=== PATIENT | female | born 1995 | race Caucasian/White ===

== ENCOUNTER 2016-12-27 11:15 | Inpatient (IN) | payer BC ==
[~2016-12-27] VITALS: Ht 165.1 cm; Wt 70.5 kg
[~2016-12-27 11:15] MED LIST: ACET1TAB40 PO
[2016-12-27] MEDS ORDERED: ACETAMINOPHEN 500 MG TAB PO STA (11:37)
[2016-12-27] MEDS ORDERED: ONDANSETRON 4 MG INJ IV STA (11:37)
[2016-12-27] MEDS ORDERED: SOD CHLORIDE 0.9% 1,000 ML IV STA (11:37)
[2016-12-27 12:13] LABS: ADD SCAN DIFF NO
[2016-12-27 12:17] LABS: BASOPHIL # 0.1 10^3/ul (0.0-0.1); BASOPHILS % 0.4 % (0.0-2.0); EOSINOPHILS % 0.1 % (0.0-7.0); HEMATOCRIT 44.5 % (37.0-47.0); HEMOGLOBIN 15.4 g/dl (12.0-16.0); LYMPHOCYTES # 1.9 10^3/ul (0.8-2.9); LYMPHOCYTES % 13.9 % (15.0-51.0); MEAN CORPUSCULAR HEMOGLOBIN 29.3 pg (29.0-33.0); MEAN CORPUSCULAR HGB CONC 34.6 g/dl (32.0-37.0); MEAN CORPUSCULAR VOLUME 84.8 fl (82.0-101.0); MONOCYTE # 0.8 10^3/ul (0.3-0.9); MONOCYTES % 5.8 % (0.0-11.0); NEUTROPHIL # 10.9 10^3/ul (1.6-7.5); NEUTROPHILS % 79.4 % (39.0-77.0); PLATELET COUNT 289 10^3/UL (140-415); RED BLOOD COUNT 5.25 10^6/ul (4.20-5.40); RED CELL DISTRIBUTION WIDTH 13.2 % (11.5-14.5); WHITE BLOOD COUNT 13.8 10^3/ul (4.8-10.8)
--- NOTE | 2016-12-27 12:22 | RADRPT ---
PROCEDURE: US OB. CLINICAL INDICATION: Abdominal pain. TECHNIQUE: Transabdominal and transvaginal views of the pelvis are available for review. COMPARISON: No. FINDINGS: The uterus is identified and is a gestational sac containing a single fetus. There is a circumferen tial grade 0 placenta. The mean sac diameter is 3.8 cm which calculates to 9 weeks 1 day. [place]-rump length:2.5 cm calculates to 9 weeks 1 day. heart rate:182 beats per minute. Nuchal translucency:Not evaluated. Ultrasound estimated gestational age:JOSEPHINE (AUA 07/31/2017. A yolk sac was identified. No ovarian or adnexal mass lesion is seen. There is no free fluid. IMPRESSION: 1. A single viable fetus is identified presenting mobile. AUA = 9 weeks 1 day plus or minus 0 week s 4 days. 2. JOSEPHINE (AUA): July 31, 2017. 3. No abnormal pelvic mass or free fluid is identified. RPTAT:AAJJ Physician Vandana Date Time Electronically viewed and signed by Physician Vandana on 12/27/2016 12:21 /
[2016-12-27 12:29] LABS: ALBUMIN 5.3 g/dl (3.3-4.9)
[2016-12-27 12:32] LABS: ALBUMIN/GLOBULIN RATIO 1.35; BILIRUBIN,INDIRECT 0.6 mg/dl (0-1.1); BILIRUBIN,TOTAL 0.6 mg/dl (0.2-1.3); CREATININE 0.54 mg/dl (0.44-1.00); TOTAL PROTEIN 9.2 g/dl (6.1-8.1)
[2016-12-27 12:33] LABS: CALCIUM 10.6 mg/dl (8.4-10.2)
[2016-12-27] MEDS ORDERED: POTASSIUM CHLORIDE (SR) 20 MEQ TAB PO STA (13:11)
--- NOTE | 2016-12-27 13:59 | ERA ---
ER Documentation Chief Complaint Date/Time DATE: 12/27/16 TIME: 13:58 Chief Complaint 9 weeks with ap, vomiting HPI 21-year-old woman referred here by her obstetrics clinic for intractable vomiting. She has been vomiting for about 2 weeks and clinic attempt and management as an outpatient with Zofran. She states she has been using Zofran without relief and has been losing weight and has had multiple episodes of clear emesis daily. Patient is about 9 weeks by dates and denies fevers or chills, no vaginal bleeding or pelvic cramping, no dysuria, no chest pain or shortness of breath. Patient denies diarrhea. ROS All systems reviewed and are negative except as per history of present illness. Medications Home Meds Active Scripts Acetaminophen-Codeine* (Acetaminophen-Cod #3*) 300-30 Mg Tab, 1 TAB PO Q4H Y for PAIN, #15 TAB Prov:JOSE A GOOD PA-C 10/30/15 Allergies Allergies: Coded Allergies: No Known Allergy (Unverified , 10/18/12) PMhx/Soc None Medical and Surgical Hx: pt denies Medical Hx, pt denies Surgical Hx Hx Alcohol Use: No Hx Substance Use: No Hx Tobacco Use: No Smoking Status: Never smoker FmHx Family History: No diabetes Physical Exam Vitals Vital Signs Date Time Temp Pulse Resp B/P Pulse Ox O2 Delivery O2 Flow Rate FiO2 12/27/16 11:19 98.3 113 20 137/76 99 Physical Exam GENERAL: Well-developed, well-nourished, dehydrated, nauseous, afebrile HEENT: Dry mucous membranes, pink conjunctiva, no cervical spine tenderness or step-off deformities, no goiter, no jaundice or icterus, extraocular movements intact without pain. No submandibular induration, and no pharyngeal erythema NEURO: Alert and oriented 3, cranial nerves II through XII intact bilaterally, pupils equal round reactive to light, no focal deficits or facial asymmetry, sensation intact distally Strength 5/5 in upper and lower extremities bilaterally CARDIAC: Tachycardic and regular, no murmurs rubs or gallops LUNGS: Clear bilaterally no wheezing crackles or stridor ABDOMEN: Soft nontender, no guarding, no rigidity, no rebound, no psoas sign no obturator sign. Normoactive bowel sounds SKIN: Warm and dry to touch, no abrasions, contusions, or hematomas, no lacerations, no ecchymosis, no target lesions, and without ulcers EXTREMITIES: No clubbing cyanosis or edema, calves are bilaterally symmetrical, no Homans sign, no popliteal cord sign. Distal pulses equal and bilateral PSYCH: Normal affect without agitation or irritability Result Diagram: 12/27/16 1150 12/27/16 1150 Results 24 hrs Laboratory Tests Test 12/27/16 11:50 White Blood Count 13.810^3/ul Red Blood Count 5.2510^6/ul Hemoglobin 15.4g/dl Hematocrit 44.5% Mean Corpuscular Volume 84.8fl Mean Corpuscular Hemoglobin 29.3pg Mean Corpuscular Hemoglobin Concent 34.6g/dl Red Cell Distribution Width 13.2% Platelet Count 84285^3/UL Mean Platelet Volume 10.0fl Neutrophils % 79.4% Lymphocytes % 13.9% Monocytes % 5.8% Eosinophils % 0.1% Basophils % 0.4% Nucleated Red Blood Cells % 0.0/100WBC Neutrophils # 10.910^3/ul Lymphocytes # 1.910^3/ul Monocytes # 0.810^3/ul Eosinophils # 0.010^3/ul Basophils # 0.110^3/ul Nucleated Red Blood Cells # 0.010^3/ul Sodium Level 136mmol/L Potassium Level 3.0mmol/L Chloride Level 94mmol/L Carbon Dioxide Level 26mmol/L Anion Gap 19 Blood Urea Nitrogen 6mg/dl Creatinine 0.54mg/dl Glucose Level 117mg/dl Calcium Level 10.6mg/dl Total Bilirubin 0.6mg/dl Direct Bilirubin 0.00mg/dl Indirect Bilirubin 0.6mg/dl Aspartate Amino Transf (AST/SGOT) 24IU/L Alanine Aminotransferase (ALT/SGPT) 25IU/L Alkaline Phosphatase 76IU/L Total Protein 9.2g/dl Albumin 5.3g/dl Globulin 3.90g/dl Albumin/Globulin Ratio 1.35 Lipase 38U/L Beta HCG, Quantitative 61273.0mIU/ml Current Medications Medications (Trade) Dose Ordered Sig/Roman Route PRN Reason Start Time Stop Time Status Last Admin Dose Admin Sodium Chloride (NS) 1,000 ml @ 2,000 mls/hr Q30M STAT IV 12/27/16 11:37 12/27/16 12:06 DC 12/27/16 11:55 Ondansetron HCl (Zofran Inj) 4 mg ONCE STAT IV 12/27/16 11:37 12/27/16 11:41 DC 12/27/16 11:54 Acetaminophen (Tylenol Tab) 500 mg ONCE STAT PO 12/27/16 11:37 12/27/16 11:41 DC 12/27/16 11:54 Potassium Chloride (Klor-Con 20) 60 meq ONCE STAT PO 12/27/16 13:11 12/27/16 13:17 DC 12/27/16 13:23 Procedures/MDM IV line was established patient was placed on dye penetrant testing technician rhythm strip revealed a sinus tachycardia at 110 bpm with upright P and T waves. Patient was afebrile. I administered 2 L normal saline intravenously for dehydration and Zofran 4 mg IV 2 for continued vomiting. Later for complaints of body aches I did administer morphine 2 mg IV 1. CBC revealed a reactive leukocytosis of 14, electrolytes revealed hypokalemia 3 , liver function tests were normal, urine analysis negative for infection but positive ketones, test positive. Obstetric ultrasound revealed a viable intrauterine at 9 weeks. Patient was treated here with 60 mEq of potassium supplementation. Patient has continued intractable vomiting and will be admitted to the obstetrics/gynecology department for continued medical management. Departure Diagnosis: Primary Impression: Abdominal pain Qualified Code: R10.30 - Lower abdominal pain Additional Impressions: Intractable vomiting Qualified Code: R11.2 - Intractable vomiting with nausea, unspecified vomiting type Hypokalemia First trimester Dehydration Condition: ZOE Field MD Dec 27, 2016 13:59
[2016-12-27] MEDS ORDERED: morphine 2 MG INJ IV ONE (14:00)
[2016-12-27 14:25] LABS: URINE BLOOD (Dip) POC Negative (NEGATIVE)
[2016-12-27 15:00] VITALS: TEMP 98.2
[2016-12-27 15:13] LABS: ADD UMIC YES; URINE BILIRUBIN (Dip) 1+ (NEGATIVE); URINE BLOOD (Dip) NEGATIVE (NEGATIVE); URINE COLOR YELLOW (YELLOW); URINE GLUCOSE (Dip) NEGATIVE (NEGATIVE); URINE KETONES (Dip) 3+ (NEGATIVE); URINE LEUKOCYTE ESTERASE (Dip) NEGATIVE (NEGATIVE); URINE NITRITE (Dip) NEGATIVE (NEGATIVE); URINE TOTAL PROTEIN (Dip) TRACE (NEGATIVE); URINE UROBILINOGEN (Dip) 0.2 E.U./dL (0.1-1.0)
[2016-12-27 15:34] LABS: ICTOTEST NEGATIVE (NEGATIVE)
[2016-12-27 15:36] LABS: MUCUS,URINE MODERATE; SQUAMOUS EPITHELIAL CELL,UR MANY
[2016-12-27 15:37] LABS: URINE RBCS NONE SEEN /HPF (0)
[2016-12-27 15:40] VITALS: BP 135/87; PULSE 63; RESP 18; Ht 165.1 cm; Wt 70.5 kg
--- NOTE | 2016-12-27 16:51 | HP ---
Date/Time of Note Date/Time of Note DATE: 12/27/16 TIME: 16:44 OB - History Hx of Present Free Text/Dictation 21 yo P0@9 wks GA with Intractable Nausea and Vomiting : 1 Para: 0 Care: Limited Care Obstetrical Complications: None Medical Complications: None Past Family/Social History * Past Medical, Surgical, Family and Obstetric Histories reviewed from chart. OB Admission Exam Vital Signs Vital Signs Vital Signs Date Time Temp Pulse Resp B/P Pulse Ox O2 Delivery O2 Flow Rate FiO2 12/27/16 15:40 98.0 63 18 135/87 100 Room Air Physical Exam HEENT: WNL Abdomen: WNL Extremities: Normal Reflexes: Normal Last 72 hours Lab Results CBC & BMP 12/27/16 11:50 Liver Function Test 12/27/16 11:50 Alanine Aminotransferase (ALT/SGPT) 25 Albumin 5.3 H Alkaline Phosphatase 76 Aspartate Amino Transf (AST/SGOT) 24 Direct Bilirubin 0.00 Total Protein 9.2 H OB Assessment/Plan Reason for admission: observation Plan: Expectant Management Other plan: 9+wks GA with Hyperemesis gravidarum CMP Amylase Lipase B-HCG Free T4 TSH CBC Liver,Gall bladder,Abdominal ultrasound OB ultrasound R/o Partial molar IV hydration Priscillajayce Hospitalist consult CINDI JONES M.D. Dec 27, 2016 16:51
[2016-12-27] MEDS ORDERED: HYDROmorphONE 2 MG/ML SYG IV STA (17:04)
[2016-12-27] MEDS: DEXTROSE 5%-LR 1,000 ML IV SCH (17:35)
--- NOTE | 2016-12-27 18:01 | RADRPT ---
PROCEDURE: Limited US Abdomen. CLINICAL INDICATION: Abdominal pain. TECHNIQUE: Multiple real-time images were acquired of the patient's abdomen and retroperitoneum ut ilizing a high resolution transducer. COMPARISON: None FINDINGS: The pancreas is normal. The liver is enlarged measuring 16.8 cm in length. The gallbladder wall measures 1 mm. The right kidney measures 10.6 cm in length. The left kidney and spleen are not evaluated. The abdo yobani aorta is not evaluated. IMPRESSION: 1. Normal pancreas. 2. Mild hepatomegaly. 3. No evidence of cholelithiasis or gallbladder wall thickening. Physician Vandana Date Time Electronically viewed and signed by Neno Traore Physician on 12/27/2016 18:01 LITO/
[2016-12-27 20:04] VITALS: BP 100/55; RESP 20
[2016-12-28] MEDS: DEXTROSE 5%-LR 1,000 ML IV SCH ×4 (01:12→20:56)
[2016-12-28] MEDS: ACETAMINOPHEN 325 MG TAB PO PRN (01:12)
[2016-12-28] MEDS: ACETAMINOPHEN 500 MG TAB PO PRN ×3 (02:12→19:28)
[2016-12-28 06:31] LABS: ADD SCAN DIFF NO
[2016-12-28 06:42] LABS: BASOPHIL # 0.1 10^3/ul (0.0-0.1); BASOPHILS % 0.4 % (0.0-2.0); EOSINOPHILS # 0.1 10^3/ul (0.0-0.5); EOSINOPHILS % 0.6 % (0.0-7.0); HEMATOCRIT 37.3 % (37.0-47.0); HEMOGLOBIN 12.8 g/dl (12.0-16.0); LYMPHOCYTES # 2.1 10^3/ul (0.8-2.9); LYMPHOCYTES % 18.5 % (15.0-51.0); MEAN CORPUSCULAR HEMOGLOBIN 29.4 pg (29.0-33.0); MEAN CORPUSCULAR HGB CONC 34.3 g/dl (32.0-37.0); MEAN CORPUSCULAR VOLUME 85.7 fl (82.0-101.0); MEAN PLATELET VOLUME 10.6 fl (7.4-10.4); MONOCYTE # 0.7 10^3/ul (0.3-0.9); MONOCYTES % 6.1 % (0.0-11.0); NEUTROPHIL # 8.3 10^3/ul (1.6-7.5); PLATELET COUNT 250 10^3/UL (140-415); RED BLOOD COUNT 4.35 10^6/ul (4.20-5.40); RED CELL DISTRIBUTION WIDTH 13.2 % (11.5-14.5); WHITE BLOOD COUNT 11.3 10^3/ul (4.8-10.8)
[2016-12-28 07:00] VITALS: BP 119/58; RESP 20
[2016-12-28 07:05] LABS: ALBUMIN 3.8 g/dl (3.3-4.9); CHLORIDE 101 mmol/L (97-110); SODIUM 132 mmol/L (135-144)
[2016-12-28 07:06] LABS: POTASSIUM 3.2 mmol/L (3.5-5.1)
[2016-12-28 07:08] LABS: ALANINE AMINOTRANSFERASE 24 IU/L (13-69); ALBUMIN/GLOBULIN RATIO 1.35; ALKALINE PHOSPHATASE 58 IU/L (42-121); AMYLASE 50 U/L (11-123); ANION GAP 13 (8-16); ASPARTATE AMINO TRANSFERASE 22 IU/L (15-46); BILIRUBIN,INDIRECT 0.4 mg/dl (0-1.1); BILIRUBIN,TOTAL 0.4 mg/dl (0.2-1.3); CALCIUM 9.3 mg/dl (8.4-10.2); CARBON DIOXIDE 21 mmol/L (21-31); CREATININE 0.43 mg/dl (0.44-1.00); GLUCOSE 100 mg/dl (70-220); TOTAL PROTEIN 6.6 g/dl (6.1-8.1)
[2016-12-28 07:10] LABS: BLOOD UREA NITROGEN < 2 mg/dl (7-20)
[2016-12-28 07:30] LABS: THYROID STIMULATING HORMONE 0.442 MIU/L (0.465-4.680)
[2016-12-28] MEDS: MULTIVIT/MIN/FOLATE/IRON/PREN TAB PO SCH (10:06)
[2016-12-28] MEDS: ONDANSETRON 4 MG INJ IV PRN ×3 (11:28→20:50)
--- NOTE | 2016-12-28 17:49 | PN ---
Date/Time of Note Date/Time of Note DATE: 12/28/16 TIME: 17:48 OB Subjective Subjective Subjective Patient is a 9+ weeks of gestation with hyperemesis She reports of having abdominal pain and she has received Tylenol She reports nausea and still unable to hold down solid foods OB Objective Objective Objective Vital signs stable OB Assessment/Plan Other Assessment: Hyperemesis of Other plan: We will obtain urine tox and UA Add vitamin B6 daily VICKI CENTENO Dec 28, 2016 17:49
[2016-12-28 19:01] LABS: ADD UMIC YES; URINE BILIRUBIN (Dip) NEGATIVE (NEGATIVE); URINE BLOOD (Dip) NEGATIVE (NEGATIVE); URINE COLOR LT. YELLOW (YELLOW); URINE GLUCOSE (Dip) NEGATIVE (NEGATIVE); URINE KETONES (Dip) NEGATIVE (NEGATIVE); URINE LEUKOCYTE ESTERASE (Dip) NEGATIVE (NEGATIVE); URINE NITRITE (Dip) NEGATIVE (NEGATIVE); URINE TOTAL PROTEIN (Dip) NEGATIVE (NEGATIVE); URINE UROBILINOGEN (Dip) 0.2 E.U./dL (0.1-1.0)
[2016-12-28 19:11] LABS: SQUAMOUS EPITHELIAL CELL,UR FEW; URINE RBCS NONE SEEN /HPF (0)
[2016-12-28 19:24] VITALS: BP 123/77; RESP 18
[2016-12-28 20:36] LABS: OPIATES Negative (NEGATIVE)
[2016-12-28 20:38] LABS: BARBITURATES Negative (NEGATIVE); BENZODIAZEPINES Negative (NEGATIVE); CANNABINOIDS Positive (NEGATIVE); COCAINE Negative (NEGATIVE)
[2016-12-29] MEDS: ONDANSETRON 4 MG INJ IV PRN ×2 (00:53→08:44)
[2016-12-29 08:28] VITALS: BP 120/72; RESP 16
[2016-12-29] MEDS: MULTIVIT/MIN/FOLATE/IRON/PREN TAB PO SCH (08:36)
[2016-12-29] MEDS: ACETAMINOPHEN 325 MG TAB PO PRN (08:36)
[2016-12-29] MEDS: PYRIDOXINE 50 MG TAB PO SCH (08:36)
--- NOTE | 2016-12-29 10:45 | QN ---
Documentation Comment Laborist HD#3 S: Pt c/o nausea after eating canteloupe this AM and had several episodes of vomiting overnight. Denies abdominal pain or vaginal bleeding although per nursing pt c/o severe abdominal pain earlier this AM. O: VS 98.0 04570 70 16 Gen: sleeping, arousable however minimally communicative 2/2 desire to return to sleep CV: RRR, nl s1s2 Resp: CTAB Abd: soft, NTND, NABS Ext: symmetric BLE, nontender, no edema Labs: Utox pos for MJ CBC 4 wnl CMP 4/ Na 132, K 3.2, Cr 0.43 HD#3 for 29yo G1 at 9+3 wks GA admitted for N/V c/w hyperemesis gravidarum ->Regular diet d/c'd and clear diet ordered ->PO PNV d/c'd while pt having difficulty with POs, as PNV can trigger nausea ->ATC IV Reglan ordered, to be added to current regimen of PRN Zofran and Vit B6 ->CBC and CMP ordered, will replete electrolytes prn At this time given pt reported inability to tolerate POs, pt will need ongoing inpatient management. DANNY MARTIN MD Dec 29, 2016 10:45
[2016-12-29 11:32] LABS: ADD SCAN DIFF NO
[2016-12-29 11:42] LABS: BASOPHIL # 0.1 10^3/ul (0.0-0.1); BASOPHILS % 0.4 % (0.0-2.0); EOSINOPHILS % 0.2 % (0.0-7.0); HEMATOCRIT 37.7 % (37.0-47.0); HEMOGLOBIN 13.1 g/dl (12.0-16.0); LYMPHOCYTES # 1.7 10^3/ul (0.8-2.9); LYMPHOCYTES % 14.2 % (15.0-51.0); MEAN CORPUSCULAR HEMOGLOBIN 29.2 pg (29.0-33.0); MEAN CORPUSCULAR HGB CONC 34.7 g/dl (32.0-37.0); MEAN CORPUSCULAR VOLUME 84.2 fl (82.0-101.0); MEAN PLATELET VOLUME 9.9 fl (7.4-10.4); MONOCYTE # 0.7 10^3/ul (0.3-0.9); MONOCYTES % 5.4 % (0.0-11.0); NEUTROPHIL # 9.6 10^3/ul (1.6-7.5); NEUTROPHILS % 79.3 % (39.0-77.0); PLATELET COUNT 256 10^3/UL (140-415); RED BLOOD COUNT 4.48 10^6/ul (4.20-5.40); RED CELL DISTRIBUTION WIDTH 13.1 % (11.5-14.5); WHITE BLOOD COUNT 12.1 10^3/ul (4.8-10.8)
[2016-12-29 11:52] LABS: ALBUMIN 3.7 g/dl (3.3-4.9); CHLORIDE 103 mmol/L (97-110)
[2016-12-29 11:53] LABS: POTASSIUM 3.4 mmol/L (3.5-5.1); SODIUM 132 mmol/L (135-144)
[2016-12-29 11:55] LABS: ANION GAP 10 (8-16); BILIRUBIN,INDIRECT 0.3 mg/dl (0-1.1); BILIRUBIN,TOTAL 0.3 mg/dl (0.2-1.3); CARBON DIOXIDE 22 mmol/L (21-31); CREATININE 0.44 mg/dl (0.44-1.00)
[2016-12-29 11:56] LABS: ALANINE AMINOTRANSFERASE 44 IU/L (13-69); ALBUMIN/GLOBULIN RATIO 1.32; ALKALINE PHOSPHATASE 60 IU/L (42-121); ASPARTATE AMINO TRANSFERASE 47 IU/L (15-46); CALCIUM 9.3 mg/dl (8.4-10.2); GLUCOSE 94 mg/dl (70-220); TOTAL PROTEIN 6.5 g/dl (6.1-8.1)
[2016-12-29 11:58] LABS: BLOOD UREA NITROGEN < 2 mg/dl (7-20)
[2016-12-29] MEDS: METOCLOPRAMIDE 10 MG INJ IV SCH ×2 (12:00→19:01)
[2016-12-29] MEDS: SOD CHLORIDE 0.9% 1,000 ML IV SCH ×2 (15:39→19:00)
[2016-12-29] MEDS: ACETAMINOPHEN 500 MG TAB PO PRN (19:15)
[2016-12-29 20:10] VITALS: BP 114/59; PULSE 82; RESP 17
[2016-12-30] MEDS: SOD CHLORIDE 0.9% 1,000 ML IV SCH ×2 (04:47→12:52)
[2016-12-30] MEDS: METOCLOPRAMIDE 10 MG INJ IV SCH ×3 (05:07→12:00)
[2016-12-30 08:01] VITALS: BP 118/62; RESP 18
[2016-12-30] MEDS: PYRIDOXINE 50 MG TAB PO SCH (09:04)
[2016-12-30 13:54] LABS: ADD SCAN DIFF NO
[2016-12-30 13:59] LABS: BASOPHIL # 0.1 10^3/ul (0.0-0.1); BASOPHILS % 0.4 % (0.0-2.0); EOSINOPHILS # 0.1 10^3/ul (0.0-0.5); EOSINOPHILS % 0.7 % (0.0-7.0); HEMATOCRIT 36.4 % (37.0-47.0); HEMOGLOBIN 12.7 g/dl (12.0-16.0); LYMPHOCYTES # 2.1 10^3/ul (0.8-2.9); LYMPHOCYTES % 18.1 % (15.0-51.0); MEAN CORPUSCULAR HEMOGLOBIN 30.3 pg (29.0-33.0); MEAN CORPUSCULAR HGB CONC 34.9 g/dl (32.0-37.0); MEAN CORPUSCULAR VOLUME 86.9 fl (82.0-101.0); MEAN PLATELET VOLUME 9.6 fl (7.4-10.4); MONOCYTE # 0.7 10^3/ul (0.3-0.9); MONOCYTES % 6.1 % (0.0-11.0); NEUTROPHIL # 8.6 10^3/ul (1.6-7.5); NEUTROPHILS % 74.3 % (39.0-77.0); PLATELET COUNT 244 10^3/UL (140-415); RED BLOOD COUNT 4.19 10^6/ul (4.20-5.40); RED CELL DISTRIBUTION WIDTH 13.1 % (11.5-14.5); WHITE BLOOD COUNT 11.6 10^3/ul (4.8-10.8)
[2016-12-30 14:10] LABS: ALBUMIN 3.7 g/dl (3.3-4.9)
[2016-12-30 14:12] LABS: BILIRUBIN,INDIRECT 0.3 mg/dl (0-1.1); BILIRUBIN,TOTAL 0.3 mg/dl (0.2-1.3); CREATININE 0.44 mg/dl (0.44-1.00)
[2016-12-30 14:13] LABS: ALBUMIN/GLOBULIN RATIO 1.32; CALCIUM 8.6 mg/dl (8.4-10.2); TOTAL PROTEIN 6.5 g/dl (6.1-8.1)
[2016-12-30 14:20] LABS: POTASSIUM 2.9 mmol/L (3.5-5.1)
[2016-12-30] MEDS ORDERED: POTASSIUM CHLORIDE (SR) 20 MEQ TAB PO STA (14:48)
--- NOTE | 2016-12-30 16:50 | PD.PPDC ---
APPLICATION CHEMIST Discharge Instruction Condition Patient Condition: Stable Diet Diet: Special Diet Special Diet: avoid spicey and greasy foods Activity/Restrictions Activity: Normal Activity Follow-up Follow-up with Physician: Day/Days Return to clinic for [facility] Instructions: Fever greater than 101 Excessive Vaginal Bleeding More than 2 pads per hour Unable to tolerate diet Comment: take your medications as prescribed. take your potassium tonight. eat a few bananas tonight and anay. go to your obgyn this week. return to ER with any complaints JESSE TORRES MD Dec 30, 2016 16:50
--- NOTE | 2016-12-31 06:24 | DS ---
DATE OF ADMISSION: 12/27/2016 DATE OF DISCHARGE: 12/30/2016 DISCHARGE DIAGNOSES: 1. Intrauterine at 9 weeks plus. 2. Hyperemesis gravidarum. HISTORY AND HOSPITAL COURSE: The patient is a 21-year-old who presented at 9 weeks complaining of n ausea, vomiting. On the , patient was admitted, started on IV fluids and antiemetics. On admis jules, the patient's labs were within normal limits. Potassium low at 3.0. Patient had OB ultrasoun d that was within normal limits. Obstetrical ultrasound shows intrauterine 9 weeks 1 day. Gallbladder ultrasound is all within normal limits. Patient was admitted, started on IV fluids. Through the course and now on 12/30/2016, patient is doing well, tolerating her food today. No nause a or vomiting on the . Laboratory exam today, hemoglobin is 12. Potassium was down to 2.9. How ever, the patient is tolerating p.o. well. Patient was given some potassium chloride and patient wa s able to eat and has no complaints. Patient discharged home in stable condition. The patient to follow up with [facility] within 2 to 3 day s. ER precautions were given and patient is stable upon discharge. Dictated By: JESSE TORRES MD /NTS Conf#: [id number] DID#: [id number]
[2016-12-31] MEDS ORDERED: ACET500C5 PO (23:32)
[2016-12-31] MEDS ORDERED: ONDA4TAB14 PO (23:32)
== END 2016-12-30 18:10 | disposition home or self-care (01) | DRG 781 ==
LOC: FTE 11:15 → MS1 13:52
PROVIDERS: ADMIT Obstetrics & Gynecology; ATTEND Obstetrics & Gynecology
DX: O21.0 Mild hyperemesis gravidarum (principal); Z3A.09 9 weeks gestation of pregnancy
CPT/HCPCS: 36415; 76705; 76801; 80053; 80307; 81001; 81003; 82150; 83690; 84439; 84443; 84702; 85025; 87081; 96374; 96375; J1170; J2270; J2405; J2765; J7030; J7121

== ENCOUNTER 2016-12-31 19:43 | Emergency (ER) | payer BC ==
[~2016-12-31] VITALS: Ht 162.6 cm; Wt 69.0 kg
[2016-12-31 20:14] VITALS: Ht 162.6 cm; Wt 69.0 kg
[2016-12-31] MEDS ORDERED: SOD CHLORIDE 0.9% 1,000 ML IV STA (20:53)
[2016-12-31] MEDS ORDERED: ONDANSETRON 4 MG INJ IV STA (20:53)
[2016-12-31] MEDS ORDERED: ACETAMINOPHEN 500 MG TAB PO STA (21:24)
[2016-12-31 21:27] LABS: ADD SCAN DIFF NO
[2016-12-31 21:29] LABS: BASOPHIL # 0.1 10^3/ul (0.0-0.1); BASOPHILS % 0.4 % (0.0-2.0); HEMATOCRIT 42.2 % (37.0-47.0); HEMOGLOBIN 15.2 g/dl (12.0-16.0); LYMPHOCYTES % 6.1 % (15.0-51.0); MEAN CORPUSCULAR HEMOGLOBIN 29.9 pg (29.0-33.0); MEAN CORPUSCULAR VOLUME 82.9 fl (82.0-101.0); MEAN PLATELET VOLUME 9.4 fl (7.4-10.4); MONOCYTE # 0.5 10^3/ul (0.3-0.9); MONOCYTES % 2.7 % (0.0-11.0); NEUTROPHIL # 15.3 10^3/ul (1.6-7.5); NEUTROPHILS % 90.4 % (39.0-77.0); PLATELET COUNT 289 10^3/UL (140-415); RED BLOOD COUNT 5.09 10^6/ul (4.20-5.40); RED CELL DISTRIBUTION WIDTH 12.7 % (11.5-14.5); WHITE BLOOD COUNT 16.9 10^3/ul (4.8-10.8)
[2016-12-31 21:54] LABS: ALBUMIN 4.7 g/dl (3.3-4.9)
[2016-12-31 21:57] LABS: ALBUMIN/GLOBULIN RATIO 1.38; BILIRUBIN,INDIRECT 0.3 mg/dl (0-1.1); BILIRUBIN,TOTAL 0.3 mg/dl (0.2-1.3); CREATININE 0.41 mg/dl (0.44-1.00); POTASSIUM 3.5 mmol/L (3.5-5.1); TOTAL PROTEIN 8.1 g/dl (6.1-8.1)
[2016-12-31 21:58] LABS: CALCIUM 10.2 mg/dl (8.4-10.2)
[2016-12-31 23:17] LABS: URINE BLOOD (Dip) POC Negative (NEGATIVE)
[2016-12-31] MEDS ORDERED: ONDA4TAB14 PO (23:32)
[2016-12-31] MEDS ORDERED: ACET500C5 PO (23:32)
--- NOTE | 2016-12-31 23:42 | ERD ---
ER Documentation Chief Complaint Date/Time DATE: 12/31/16 TIME: 23:36 Chief Complaint CP ON BREATHING. INTRACTABLE N/V SEEN HERE YESTERDAY HPI 21-year-old female recently discharged for intractable vomiting with hypokalemia , presents with nausea, vomiting, chest pain. Patient comes in with 2 episodes of nonbloody nonbilious emesis today, she reports generalized chest pain. She pain is noticed when she takes a deep breath in or out when she moves. She denies any fevers or chills. No leg pain or leg swelling. She denies abdominal pain. She denies vaginal bleeding or pelvic pain. ROS All systems reviewed and are negative except as per history of present illness. Medications Home Meds Active Scripts Acetaminophen* (Tylophen*) 500 Mg Capsule, 1 CAP PO Q6H Y for PAIN AND OR ELEVATED TEMP, #20 CAP Prov:LORENA BARTON PA-C 12/31/16 Ondansetron (Ondansetron Odt) 4 Mg Tab.rapdis, 4 MG PO Q6H Y for NAUSEA AND/OR VOMITING, #10 TAB Prov:LORENA BARTON PA-C 12/31/16 Discontinued Scripts Acetaminophen-Codeine* (Acetaminophen-Cod #3*) 300-30 Mg Tab, 1 TAB PO Q4H Y for PAIN, #15 TAB Prov:JOSE A GOOD PA-C 10/30/15 Allergies Allergies: Coded Allergies: No Known Allergy (Unverified , 10/18/12) PMhx/Soc History of Surgery: No Anesthesia Reaction: No Hx Neurological Disorder: No Hx Respiratory Disorders: No Hx Cardiac Disorders: No Hx Psychiatric Problems: No Hx Miscellaneous Medical Probl: No Hx Alcohol Use: No Hx Substance Use: No Hx Tobacco Use: No Smoking Status: Never smoker Physical Exam Vitals Vital Signs Date Time Temp Pulse Resp B/P Pulse Ox O2 Delivery O2 Flow Rate FiO2 12/31/16 20:14 98.3 127 20 163/80 98 Recheck vital signs were temperature 98.0, pulse was 92, blood pressure was 124/ 73 and saturation was 100% on room air Physical Exam General: Well-developed, well-nourished. The patient appears in no acute distress. HEENT: Head is normocephalic, atraumatic. No scleral icterus. Pupils are equal , round, and reactive. Oral mucous membranes are moist. No pharyngeal erythema. Neck: Supple. Nontender. Lungs: Clear to auscultation. Normal air movement. Diffuse chest wall tenderness with palpation. Heart: Regular rate and rhythm. S1 and S2 are normal. No murmurs, gallops, or rubs. Abdomen: Soft, nontender, nondistended. Bowel sounds are normoactive. Extremities: No clubbing or cyanosis. Normal pulses. Moving extremities x 4. No weakness. Neurologic: Alert and oriented 3. No focal deficits. Skin: Normal turgor. No rash or lesions. Result Diagram: 12/31/16211912/31/162119 Results 24 hrs Laboratory Tests Test 12/31/16 21:20 12/31/16 23:16 White Blood Count 16.910^3/ul Red Blood Count 5.0910^6/ul Hemoglobin 15.2g/dl Hematocrit 42.2% Mean Corpuscular Volume 82.9fl Mean Corpuscular Hemoglobin 29.9pg Mean Corpuscular Hemoglobin Concent 36.0g/dl Red Cell Distribution Width 12.7% Platelet Count 37428^3/UL Mean Platelet Volume 9.4fl Neutrophils % 90.4% Lymphocytes % 6.1% Monocytes % 2.7% Eosinophils % 0.0% Basophils % 0.4% Nucleated Red Blood Cells % 0.0/100WBC Neutrophils # 15.310^3/ul Lymphocytes # 1.010^3/ul Monocytes # 0.510^3/ul Eosinophils # 0.010^3/ul Basophils # 0.110^3/ul Nucleated Red Blood Cells # 0.010^3/ul Sodium Level 136mmol/L Potassium Level 3.5mmol/L Chloride Level 97mmol/L Carbon Dioxide Level 21mmol/L Anion Gap 22 Blood Urea Nitrogen 4mg/dl Creatinine 0.41mg/dl Glucose Level 125mg/dl Calcium Level 10.2mg/dl Total Bilirubin 0.3mg/dl Direct Bilirubin 0.00mg/dl Indirect Bilirubin 0.3mg/dl Aspartate Amino Transf (AST/SGOT) 50IU/L Alanine Aminotransferase (ALT/SGPT) 83IU/L Alkaline Phosphatase 72IU/L Total Protein 8.1g/dl Albumin 4.7g/dl Globulin 3.40g/dl Albumin/Globulin Ratio 1.38 Lipase 51U/L Bedside Urine pH (LAB) 6.0 Bedside Urine Protein (LAB) 1+ Bedside Urine Glucose (UA) Negative Bedside Urine Ketones (LAB) 4+ Bedside Urine Blood Negative Bedside Urine Nitrite (LAB) Negative Bedside Urine Leukocyte Esterase (L Negative Current Medications Medications (Trade) Dose Ordered Sig/Roman Route PRN Reason Start Time Stop Time Status Last Admin Dose Admin Sodium Chloride (NS) 1,000 ml @ 1,000 mls/hr Q1H STAT IV 12/31/16 20:53 12/31/16 21:52 DC 12/31/16 21:33 Ondansetron HCl (Zofran Inj) 4 mg ONCE STAT IV 12/31/16 20:53 12/31/16 20:55 DC 12/31/16 21:31 Acetaminophen (Tylenol Tab) 500 mg ONCE STAT PO 12/31/16 21:24 12/31/16 21:25 DC 12/31/16 21:31 Procedures/MDM ED course: Patient was given a bolus of normal saline 1 L, Zofran 4 mg IV. She was given Tylenol 1 g by mouth. When I rechecked she was actually asleep, resting comfortably. MDM: 21-year-old female presents with nausea, vomiting, chest wall pain. Differential diagnosis includes costochondritis, likely, and unlikely pulmonary embolus, pneumonia, dissection. It is reproducible with palpation, does not appear to be concerning for any acute cardiopulmonary process. Her vital signs are normalized after getting fluids and resting. Previously she was admitted due to hypokalemia, today her electrolytes are all within normal limits. No signs of an acute abdominal process, no signs of appendicitis, bowel obstruction , UTI, pyelonephritis. Her pain was controlled with Tylenol. She will be given Zofran ODT to go home with. She is to do a clear liquid diet and recheck with her OB. Patient previously had an ultrasound done, showed a single live intrauterine , no adnexal masses, no evidence of an ectopic . The case was reviewed and discussed with Dr. Lockhart who agrees with the plan of care including labs, treatment, and advanced imaging as appropriate. Departure Diagnosis: Primary Impression: Hyperemesis Condition: Good Patient Instructions: Hyperemesis Gravidarum (Severe Morning Sickness) Additional Instructions: Call your OB doctor TOMORROW for an appointment during the next 1-2 days.See the doctor sooner or return here if your condition worsens before your appointment time. LORENA BARTON PA-C Dec 31, 2016 23:42
[2017-01-01 00:12] VITALS: BP 124/73; PULSE 108; RESP 20; TEMP 98.5
== END 2017-01-01 00:27 | disposition home or self-care (01) ==
LOC: FTE 19:43
DX: O21.0 Mild hyperemesis gravidarum (principal); R07.9 Chest pain, unspecified; O99.89 Other specified diseases and conditions complicating pregnancy, childbirth and the puerperium; Z3A.09 9 weeks gestation of pregnancy
CPT/HCPCS: 36415; 80053; 83690; 85025; 93005; 96374; J2405; J7030; Z7502; Z7610; 81003

== ENCOUNTER 2017-01-03 08:14 | Emergency (ER) | payer BC ==
[~2017-01-03] VITALS: Ht 165.1 cm; Wt 60.0 kg
[~2017-01-03 08:14] MED LIST changes: -ACET1TAB40 PO; +ACET500C5 PO; +ONDA4TAB14 PO
[2017-01-03 08:25] VITALS: Ht 165.1 cm; Wt 60.0 kg
[2017-01-03] MEDS ORDERED: ACETAMINOPHEN 325 MG TAB PO STA (09:04)
[2017-01-03] MEDS ORDERED: SOD CHLORIDE 0.9% 1,000 ML IV STA (09:04)
[2017-01-03] MEDS ORDERED: ONDANSETRON 4 MG INJ IV STA (09:04)
[2017-01-03 09:35] LABS: ADD SCAN DIFF NO
[2017-01-03 09:41] LABS: BASOPHIL # 0.1 10^3/ul (0.0-0.1); BASOPHILS % 0.3 % (0.0-2.0); EOSINOPHILS % 0.2 % (0.0-7.0); HEMATOCRIT 43.5 % (37.0-47.0); HEMOGLOBIN 15.3 g/dl (12.0-16.0); LYMPHOCYTES # 1.7 10^3/ul (0.8-2.9); LYMPHOCYTES % 11.8 % (15.0-51.0); MEAN CORPUSCULAR HEMOGLOBIN 30.1 pg (29.0-33.0); MEAN CORPUSCULAR HGB CONC 35.2 g/dl (32.0-37.0); MEAN CORPUSCULAR VOLUME 85.5 fl (82.0-101.0); MEAN PLATELET VOLUME 9.5 fl (7.4-10.4); MONOCYTE # 0.9 10^3/ul (0.3-0.9); MONOCYTES % 6.3 % (0.0-11.0); NEUTROPHIL # 11.6 10^3/ul (1.6-7.5); NEUTROPHILS % 80.9 % (39.0-77.0); PLATELET COUNT 281 10^3/UL (140-415); RED BLOOD COUNT 5.09 10^6/ul (4.20-5.40); RED CELL DISTRIBUTION WIDTH 13.1 % (11.5-14.5); WHITE BLOOD COUNT 14.4 10^3/ul (4.8-10.8)
[2017-01-03 09:48] LABS: POTASSIUM 3.4 mmol/L (3.5-5.1)
[2017-01-03 09:50] LABS: ALBUMIN/GLOBULIN RATIO 1.35; BILIRUBIN,INDIRECT 0.8 mg/dl (0-1.1); BILIRUBIN,TOTAL 0.8 mg/dl (0.2-1.3); CREATININE 0.45 mg/dl (0.44-1.00); TOTAL PROTEIN 8.7 g/dl (6.1-8.1)
[2017-01-03 09:51] LABS: CALCIUM 10.2 mg/dl (8.4-10.2)
[2017-01-03 09:52] LABS: ADD UMIC YES; URINE BILIRUBIN (Dip) 1+ (NEGATIVE); URINE BLOOD (Dip) NEGATIVE (NEGATIVE); URINE COLOR YELLOW (YELLOW); URINE GLUCOSE (Dip) NEGATIVE (NEGATIVE); URINE KETONES (Dip) 3+ (NEGATIVE); URINE LEUKOCYTE ESTERASE (Dip) TRACE (NEGATIVE); URINE NITRITE (Dip) NEGATIVE (NEGATIVE); URINE TOTAL PROTEIN (Dip) TRACE (NEGATIVE); URINE UROBILINOGEN (Dip) 1.0 E.U./dL (0.1-1.0)
--- NOTE | 2017-01-03 09:59 | RADRPT ---
PROCEDURE: US OB. CLINICAL INDICATION: pain TECHNIQUE: Transabdominal views of the pelvis are available for review. COMPARISON: 12/27/16 FINDINGS: There is a single intrauterine gestation with the crown-rump length measuring 3.7 cm and gestationa l sac measuring 5.1 cm, corresponding to a gestational age of 11 weeks and 0 days. The heart rate is noted at 168 bpm. The ovaries are not seen. There is no free fluid. RPTAT: AA IMPRESSION: Single live intrauterine with an estimated gestational age of 11 weeks and 0 days, based o n ultrasound measurements. JOSEPHINE based on ultrasound measurements is 07/25/17. .Chapincito Marin MD, MD Date Time Electronically viewed and signed by .Chapincito Marin MD, on 01/03/2017 09:59 .S/
[2017-01-03 10:21] LABS: BACTERIA,URINE FEW; ICTOTEST NEGATIVE (NEGATIVE); URINE RBCS 0-2 /HPF (0)
[2017-01-03] MEDS ORDERED: POTASSIUM CHLORIDE (SR) 20 MEQ TAB PO STA (10:38)
[2017-01-03] MEDS ORDERED: BEN25 PO (10:49)
[2017-01-03] MEDS ORDERED: METO10TA92 PO (10:49)
--- NOTE | 2017-01-03 11:00 | ERD ---
ER Documentation Chief Complaint Date/Time DATE: 01/03/17 TIME: 10:51 Chief Complaint pt bib self with c/o left side abd pain since yesterday HPI This is a 21-year-old female presents to the ER with left lower quadrant abdominal pain and severe nausea and vomiting that started yesterday. Patient has over 5 visits to the ED over the last month for the same reason. Patient is currently about 10 weeks . Patient states that the left lower quadrant pain is sharp in nature it is nonradiating. She has had this pain since the started however yesterday it became worse. Patient is also complaining of chest pain however denies shortness of breath. Patient denies any vaginal bleeding or any vaginal discharge. Vomiting is nonbilious nonbloody. Patient took Zofran however did not work. A0. ROS 12 point review of systems was done, all negative except per HPI. Medications Home Meds Active Scripts Diphenhydramine Hcl* (Benadryl*) 25 Mg Cap, 25 MG PO Q6, #30 CAP Prov:DA GRADY 01/03/17 Metoclopramide* (Reglan*) 10 Mg Tablet, 10 MG PO Q6 Y for NAUSEA AND/OR VOMITING , #10 TAB Prov:DA GRADY 01/03/17 Acetaminophen* (Tylophen*) 500 Mg Capsule, 1 CAP PO Q6H Y for PAIN AND OR ELEVATED TEMP, #20 CAP Prov:LORENA BARTON PA-C 12/31/16 Ondansetron (Ondansetron Odt) 4 Mg Tab.rapdis, 4 MG PO Q6H Y for NAUSEA AND/OR VOMITING, #10 TAB Prov:LORENA BARTON PA-C 12/31/16 Discontinued Scripts Acetaminophen-Codeine* (Acetaminophen-Cod #3*) 300-30 Mg Tab, 1 TAB PO Q4H Y for PAIN, #15 TAB Prov:JOSE A GOOD PA-C 10/30/15 Allergies Allergies: Coded Allergies: No Known Allergy (Unverified , 10/18/12) PMhx/Soc History of Surgery: No Anesthesia Reaction: No Hx Neurological Disorder: No Hx Respiratory Disorders: No Hx Cardiac Disorders: No Hx Psychiatric Problems: No Hx Miscellaneous Medical Probl: No Hx Alcohol Use: No Hx Substance Use: No Hx Tobacco Use: No Physical Exam Vitals Vital Signs Date Time Temp Pulse Resp B/P Pulse Ox O2 Delivery O2 Flow Rate FiO2 01/03/17 08:25 97.3 111 20 137/68 98 Physical Exam GENERAL: The patient is well developed and appropriate for usual state of health , in no apparent distress. HEENT: Atraumatic. Oral mucosa is moist CHEST: Clear to auscultation bilaterally. There are no rales, wheezes or rhonchi. HEART: Regular rate and rhythm. No murmurs, clicks, rubs or gallops. ABDOMEN: Soft, nondistended. Good bowel sounds. No rebound or guarding. No gross peritonitis. No gross organomegaly or masses. No Chavarria sign or McBurney point tenderness. She is slightly tender in the left lower quadrant. BACK: No midline or flank tenderness. NEURO: Alert and oriented. Result Diagram: 01/03/1792401/03/17924 Results 24 hrs Laboratory Tests Test 01/03/17 09:25 White Blood Count 14.410^3/ul Red Blood Count 5.0910^6/ul Hemoglobin 15.3g/dl Hematocrit 43.5% Mean Corpuscular Volume 85.5fl Mean Corpuscular Hemoglobin 30.1pg Mean Corpuscular Hemoglobin Concent 35.2g/dl Red Cell Distribution Width 13.1% Platelet Count 59739^3/UL Mean Platelet Volume 9.5fl Neutrophils % 80.9% Lymphocytes % 11.8% Monocytes % 6.3% Eosinophils % 0.2% Basophils % 0.3% Nucleated Red Blood Cells % 0.0/100WBC Neutrophils # 11.610^3/ul Lymphocytes # 1.710^3/ul Monocytes # 0.910^3/ul Eosinophils # 0.010^3/ul Basophils # 0.110^3/ul Nucleated Red Blood Cells # 0.010^3/ul Urine Color YELLOW Urine Clarity SLIGHTLY CLOUDY Urine pH 6.5 Urine Specific [place] 1.025 Urine Ketones 3+ Urine Nitrite NEGATIVE Urine Bilirubin 1+ Urine Ictotest NEGATIVE Urine Urobilinogen 1.0 E.U./dL Urine Leukocyte Esterase TRACE Urine Microscopic RBC 0-2/HPF Urine Microscopic WBC 2-5/HPF Urine Epithelial Cells FEW Urine Bacteria FEW Urine Hemoglobin NEGATIVE Urine Glucose NEGATIVE% Urine Total Protein TRACE Sodium Level 136mmol/L Potassium Level 3.4mmol/L Chloride Level 94mmol/L Carbon Dioxide Level 25mmol/L Anion Gap 20 Blood Urea Nitrogen 5mg/dl Creatinine 0.45mg/dl Glucose Level 110mg/dl Calcium Level 10.2mg/dl Total Bilirubin 0.8mg/dl Direct Bilirubin 0.00mg/dl Indirect Bilirubin 0.8mg/dl Aspartate Amino Transf (AST/SGOT) 24IU/L Alanine Aminotransferase (ALT/SGPT) 44IU/L Alkaline Phosphatase 70IU/L Total Protein 8.7g/dl Albumin 5.0g/dl Globulin 3.70g/dl Albumin/Globulin Ratio 1.35 Beta HCG, Quantitative 18809.0mIU/ml Current Medications Medications (Trade) Dose Ordered Sig/Roman Route PRN Reason Start Time Stop Time Status Last Admin Dose Admin Sodium Chloride (NS) 1,000 ml @ 1,000 mls/hr Q1H STAT IV 01/03/17 09:04 01/03/17 10:03 DC 01/03/17 09:29 Acetaminophen (Tylenol Tab) 650 mg ONCE STAT PO 01/03/17 09:04 01/03/17 09:05 DC Ondansetron HCl (Zofran Inj) 4 mg ONCE STAT IV 01/03/17 09:04 01/03/17 09:05 DC 01/03/17 09:29 Potassium Chloride (Klor-Con 20) 40 meq ONCE STAT PO 01/03/17 10:38 01/03/17 10:40 DC 01/03/17 10:44 Procedures/MDM This is a 21-year-old female that presents to the ER with abdominal pain and vomiting. Patient has been to the ER multiple times with similar symptoms. At this time suspicion for acute abdomen is low. The right lower quadrant pain she is afebrile. Patient was given fluids and she did not have any episodes of vomiting here in the ER. Patient did have slight hypokalemia and was slightly acidotic which is likely due to her constant vomiting, she was given K-Dur here in the ER. EKG was taken there was no evidence of t wave abnormalities or ST elevations. EKG was read by Dr. Vázquez. At this time suspicion for cardiac etiology is low. I also doubt pulmonary embolism as patient does not have any shortness of breath. Suspicion for UTI or pyelonephritis is low. There is no evidence of any abnormalities with the . Patient appeared much better here in the ER after receiving fluids,and stated she would like to go home. She will be sent home with Ritesh and Gibson. She is to follow-up with her primary care doctor within 1-2 days or return to ER sooner if symptoms worsen. My medical decision making was shared with the patient she understands and agrees with plan. Departure Diagnosis: Primary Impression: Hyperemesis Condition: Stable Patient Instructions: Hyperemesis Gravidarum (Severe Morning Sickness) Additional Instructions: Call your primary care doctor TOMORROW for an appointment during the next 1-2 days.See the doctor sooner or return here if your condition worsens before your appointment time. DA GRADY Jan 03, 2017 11:00
[2017-01-03 11:02] VITALS: BP 117/66; PULSE 67; TEMP 97.9
== END 2017-01-03 11:03 | disposition home or self-care (01) ==
LOC: FTE 08:14
DX: O21.9 Vomiting of pregnancy, unspecified (principal); R10.32 Left lower quadrant pain; Z3A.11 11 weeks gestation of pregnancy
CPT/HCPCS: 36415; 76801; 80053; 81001; 81003; 84702; 85025; 86900; 86901; 93005; 96361; 96374; J2405; J7030; Z7502; Z7610

== ENCOUNTER 2017-01-04 19:51 | Emergency (ER) | payer BC ==
[~2017-01-04] VITALS: Ht 165.1 cm; Wt 68.5 kg
[~2017-01-04 19:51] MED LIST changes: +BEN25 PO; +METO10TA92 PO
[2017-01-04 20:07] VITALS: Ht 165.1 cm; Wt 68.5 kg
[2017-01-04 21:05] VITALS: TEMP 98.7
[2017-01-04] MEDS ORDERED: SOD CHLORIDE 0.9% 1,000 ML IV STA (21:24)
[2017-01-04] MEDS ORDERED: METOCLOPRAMIDE 10 MG INJ IV STA (21:24)
--- NOTE | 2017-01-04 21:29 | ERD ---
ER Documentation Chief Complaint Date/Time DATE: 01/04/17 TIME: 21:26 Chief Complaint Pt with AP and vomiting since 6 this morning.Here 3 xs for same complaint. HPI Patient is a 21-year-old female, at 10 weeks gestational age with multiple recent visits to the ER with abdominal pain and vomiting, who presents with sudden onset, severe, diffuse abdominal pain since this morning associated with multiple episodes of vomiting. She denies fever, diarrhea, dysuria, vaginal bleeding or discharge. She had a single live IUP without complication on ultrasound yesterday. She has not yet seen her TUBE BLOWER, Dr. Douglas. ROS All systems reviewed and are negative except as per history of present illness. Medications Home Meds Active Scripts Diphenhydramine Hcl* (Benadryl*) 25 Mg Cap, 25 MG PO Q6, #30 CAP Prov:DA GRADY 01/03/17 Metoclopramide* (Reglan*) 10 Mg Tablet, 10 MG PO Q6 Y for NAUSEA AND/OR VOMITING , #10 TAB Prov:DA GRADY 01/03/17 Acetaminophen* (Tylophen*) 500 Mg Capsule, 1 CAP PO Q6H Y for PAIN AND OR ELEVATED TEMP, #20 CAP Prov:LORENA BARTON PA-C 12/31/16 Ondansetron (Ondansetron Odt) 4 Mg Tab.rapdis, 4 MG PO Q6H Y for NAUSEA AND/OR VOMITING, #10 TAB Prov:LORENA BARTON PA-C 12/31/16 Discontinued Scripts Acetaminophen-Codeine* (Acetaminophen-Cod #3*) 300-30 Mg Tab, 1 TAB PO Q4H Y for PAIN, #15 TAB Prov:JOSE A GOOD PA-C 10/30/15 Allergies Allergies: Coded Allergies: No Known Allergy (Unverified , 10/18/12) PMhx/Soc Past medical history: Denies Past surgical history: Denies Social history: Denies alcohol or tobacco or illicits. States that she last smoked marijuana in October, but tox screen on December 28 was positive for cannabinoids. Medical and Surgical Hx: pt denies Medical Hx, pt denies Surgical Hx History of Surgery: No Anesthesia Reaction: No Hx Neurological Disorder: No Hx Respiratory Disorders: No Hx Cardiac Disorders: No Hx Psychiatric Problems: No Hx Miscellaneous Medical Probl: No Hx Alcohol Use: No Hx Substance Use: No Hx Tobacco Use: No Smoking Status: Never smoker FmHx Family History: No coronary disease, No diabetes Physical Exam Vitals Vital Signs Date Time Temp Pulse Resp B/P Pulse Ox O2 Delivery O2 Flow Rate FiO2 01/04/17 21:05 98.7 95 20 131/83 100 Room Air 01/04/17 20:07 98.7 130 20 113/82 95 Physical Exam Const: Crying, moaning in pain, severely distraught Head: Atraumatic Eyes: Normal Conjunctiva, no pallor or icterus ENT: Normal External Ears, Nose and Mouth. Mucous membranes moist Neck: Full range of motion. No meningismus. Resp: Clear to auscultation bilaterally Cardio: Tachycardic, regular rhythm, no murmurs Abd: Soft, diffusely tender with inconsistencies, no guarding, no rebound, non distended. Skin: No petechiae or rashes, slightly diminished turgor Back: No midline or flank tenderness Ext: No cyanosis, or edema Neur: Awake and alert, cranial nerves II through XII intact, strength and sensation intact for extremities, normal gait Psych: Severely distraught, poorly communicative Result Diagram: 01/04/17210401/04/172104 Results 24 hrs Laboratory Tests Test 01/04/17 21:05 01/04/17 21:40 White Blood Count 12.610^3/ul Red Blood Count 5.0210^6/ul Hemoglobin 14.8g/dl Hematocrit 42.7% Mean Corpuscular Volume 85.1fl Mean Corpuscular Hemoglobin 29.5pg Mean Corpuscular Hemoglobin Concent 34.7g/dl Red Cell Distribution Width 13.2% Platelet Count 85021^3/UL Mean Platelet Volume 9.6fl Neutrophils % 81.8% Lymphocytes % 8.5% Monocytes % 8.9% Eosinophils % 0.0% Basophils % 0.2% Nucleated Red Blood Cells % 0.0/100WBC Neutrophils # 10.310^3/ul Lymphocytes # 1.110^3/ul Monocytes # 1.110^3/ul Eosinophils # 0.010^3/ul Basophils # 0.010^3/ul Nucleated Red Blood Cells # 0.010^3/ul Sodium Level 135mmol/L Potassium Level 3.5mmol/L Chloride Level 97mmol/L Carbon Dioxide Level 21mmol/L Anion Gap 21 Blood Urea Nitrogen 2mg/dl Creatinine 0.43mg/dl Glucose Level 102mg/dl Calcium Level 10.1mg/dl Total Bilirubin 0.4mg/dl Direct Bilirubin 0.00mg/dl Indirect Bilirubin 0.4mg/dl Aspartate Amino Transf (AST/SGOT) 23IU/L Alanine Aminotransferase (ALT/SGPT) 36IU/L Alkaline Phosphatase 74IU/L Total Protein 8.1g/dl Albumin 4.6g/dl Globulin 3.50g/dl Albumin/Globulin Ratio 1.31 Lipase 52U/L Urine Color YELLOW Urine Clarity CLOUDY Urine pH 6.0 Urine Specific [place] >=1.030 Urine Ketones 3+ Urine Nitrite NEGATIVE Urine Bilirubin 1+ Urine Ictotest NEGATIVE Urine Urobilinogen 0.2 E.U./dL Urine Leukocyte Esterase NEGATIVE Urine Microscopic RBC NONE SEEN/HPF Urine Microscopic WBC 2-5/HPF Urine Squamous Epithelial Cells MANY Urine Bacteria MODERATE Urine Mucus MODERATE Urine Hemoglobin NEGATIVE Urine Glucose NEGATIVE% Urine Total Protein TRACE Current Medications Medications (Trade) Dose Ordered Sig/Roman Route PRN Reason Start Time Stop Time Status Last Admin Dose Admin Sodium Chloride (NS) 1,000 ml @ 1,000 mls/hr Q1H STAT IV 01/04/17 21:24 01/04/17 22:23 DC 01/04/17 21:40 Metoclopramide HCl 10 mg 10 mg ONCE STAT IV 01/04/17 21:24 01/04/17 21:27 DC 01/04/17 21:40 Acetaminophen 100 ml @ 400 mls/hr ONCE ONCE IVPB 01/04/17 21:30 01/04/17 21:44 DC 01/04/17 21:42 Sodium Chloride (NS) 1,000 ml @ 1,000 mls/hr Q1H ONCE IV 01/04/17 23:00 01/04/17 23:59 DC 01/04/17 22:48 Procedures/MDM MDM: Patient is a 21-year-old female with multiple visits to the ER for hyperemesis gravidarum and abdominal pain. She appeared very distraught on initial ER arrival, but after receiving IV Tylenol and Reglan she fell asleep for several hours. On reawakening she initially did not show any distress, but then became teary-eyed again. We had further discussion with her and she expressed that she does not want to be and has been having constant pain and does not know what to do. Repeat abdominal exam is benign. There is no evidence of an acute medical condition other than hyperemesis gravidarum for which the patient is artery been given medications. I advised that she follow- up as soon as possible with an [facility]OWER to discuss her options for controlling her symptoms and her terminating . Departure Diagnosis: Primary Impression: Hyperemesis gravidarum Condition: JUAN RAMON Song MD Jan 04, 2017 21:29
[2017-01-04] MEDS ORDERED: ACETAMINOPHEN 1000MG/100ML IV 100 ML IVPB ONE (21:30)
[2017-01-04 21:35] LABS: ADD SCAN DIFF NO
[2017-01-04 21:40] LABS: BASOPHILS % 0.2 % (0.0-2.0); HEMATOCRIT 42.7 % (37.0-47.0); HEMOGLOBIN 14.8 g/dl (12.0-16.0); LYMPHOCYTES # 1.1 10^3/ul (0.8-2.9); LYMPHOCYTES % 8.5 % (15.0-51.0); MEAN CORPUSCULAR HEMOGLOBIN 29.5 pg (29.0-33.0); MEAN CORPUSCULAR HGB CONC 34.7 g/dl (32.0-37.0); MEAN CORPUSCULAR VOLUME 85.1 fl (82.0-101.0); MEAN PLATELET VOLUME 9.6 fl (7.4-10.4); MONOCYTE # 1.1 10^3/ul (0.3-0.9); MONOCYTES % 8.9 % (0.0-11.0); NEUTROPHIL # 10.3 10^3/ul (1.6-7.5); NEUTROPHILS % 81.8 % (39.0-77.0); PLATELET COUNT 274 10^3/UL (140-415); RED BLOOD COUNT 5.02 10^6/ul (4.20-5.40); RED CELL DISTRIBUTION WIDTH 13.2 % (11.5-14.5); WHITE BLOOD COUNT 12.6 10^3/ul (4.8-10.8)
[2017-01-04 21:55] LABS: ALBUMIN 4.6 g/dl (3.3-4.9)
[2017-01-04 21:56] LABS: POTASSIUM 3.5 mmol/L (3.5-5.1)
[2017-01-04 21:58] LABS: BILIRUBIN,INDIRECT 0.4 mg/dl (0-1.1); BILIRUBIN,TOTAL 0.4 mg/dl (0.2-1.3); CREATININE 0.43 mg/dl (0.44-1.00)
[2017-01-04 21:59] LABS: ALBUMIN/GLOBULIN RATIO 1.31; CALCIUM 10.1 mg/dl (8.4-10.2); TOTAL PROTEIN 8.1 g/dl (6.1-8.1)
[2017-01-04 22:06] LABS: ADD UMIC YES; URINE BILIRUBIN (Dip) 1+ (NEGATIVE); URINE BLOOD (Dip) NEGATIVE (NEGATIVE); URINE COLOR YELLOW (YELLOW); URINE GLUCOSE (Dip) NEGATIVE (NEGATIVE); URINE KETONES (Dip) 3+ (NEGATIVE); URINE LEUKOCYTE ESTERASE (Dip) NEGATIVE (NEGATIVE); URINE NITRITE (Dip) NEGATIVE (NEGATIVE); URINE TOTAL PROTEIN (Dip) TRACE (NEGATIVE); URINE UROBILINOGEN (Dip) 0.2 E.U./dL (0.1-1.0)
[2017-01-04 22:22] LABS: ICTOTEST NEGATIVE (NEGATIVE)
[2017-01-04 22:23] LABS: BACTERIA,URINE MODERATE; MUCUS,URINE MODERATE; SQUAMOUS EPITHELIAL CELL,UR MANY; URINE RBCS NONE SEEN /HPF (0)
[2017-01-04 23:00] VITALS: RESP 17
[2017-01-04] MEDS ORDERED: SOD CHLORIDE 0.9% 1,000 ML IV ONE (23:00)
[2017-01-05 01:00] VITALS: BP 106/63; PULSE 70
== END 2017-01-05 01:29 | disposition home or self-care (01) ==
LOC: E/R 19:51
DX: O21.0 Mild hyperemesis gravidarum (principal); Z3A.10 10 weeks gestation of pregnancy
CPT/HCPCS: 80053; 81001; 81003; 83690; 85025; J0131; J2765; J7030; 36415; 96374; 96375

== ENCOUNTER 2017-01-14 20:20 | Emergency (ER) | payer SELFPAY ==
[~2017-01-14] VITALS: Ht 162.6 cm; Wt 69.5 kg
[2017-01-14 20:40] VITALS: Ht 162.6 cm; Wt 69.5 kg
== END 2017-01-15 00:15 | disposition left against medical advice (07) ==
LOC: FTE 20:20
DX: Z53.21 Procedure and treatment not carried out due to patient leaving prior to being seen by health care provider (principal)

== ENCOUNTER 2017-01-30 12:10 | Emergency (ER) | payer OTHER ==
[~2017-01-30] VITALS: Wt 69.0 kg
[2017-01-30] MEDS ORDERED: METOCLOPRAMIDE 10 MG INJ IV STA (12:42)
[2017-01-30] MEDS ORDERED: SOD CHLORIDE 0.9% 1,000 ML IV STA (12:42)
[2017-01-30] MEDS ORDERED: DIPHENHYDRAMINE 50 MG INJ IV ONE (13:00)
[2017-01-30 13:04] LABS: ADD SCAN DIFF NO
[2017-01-30 13:08] LABS: BASOPHILS % 0.3 % (0.0-2.0); HEMATOCRIT 38.4 % (37.0-47.0); HEMOGLOBIN 13.5 g/dl (12.0-16.0); LYMPHOCYTES # 0.9 10^3/ul (0.8-2.9); LYMPHOCYTES % 6.2 % (15.0-51.0); MEAN CORPUSCULAR HEMOGLOBIN 30.3 pg (29.0-33.0); MEAN CORPUSCULAR HGB CONC 35.2 g/dl (32.0-37.0); MEAN CORPUSCULAR VOLUME 86.1 fl (82.0-101.0); MEAN PLATELET VOLUME 9.6 fl (7.4-10.4); MONOCYTE # 0.2 10^3/ul (0.3-0.9); MONOCYTES % 1.3 % (0.0-11.0); NEUTROPHILS % 91.8 % (39.0-77.0); PLATELET COUNT 281 10^3/UL (140-415); RED BLOOD COUNT 4.46 10^6/ul (4.20-5.40); RED CELL DISTRIBUTION WIDTH 13.6 % (11.5-14.5); WHITE BLOOD COUNT 14.1 10^3/ul (4.8-10.8)
[2017-01-30 13:21] LABS: ALBUMIN 4.9 g/dl (3.3-4.9)
[2017-01-30 13:23] LABS: CREATININE 0.45 mg/dl (0.44-1.00)
[2017-01-30 13:24] LABS: ALBUMIN/GLOBULIN RATIO 1.32; BILIRUBIN,INDIRECT 0.4 mg/dl (0-1.1); BILIRUBIN,TOTAL 0.4 mg/dl (0.2-1.3); CALCIUM 10.2 mg/dl (8.4-10.2); TOTAL PROTEIN 8.6 g/dl (6.1-8.1)
[2017-01-30 13:35] LABS: POTASSIUM 2.9 mmol/L (3.5-5.1)
[2017-01-30] MEDS ORDERED: POTASSIUM CHLORIDE (SR) 20 MEQ TAB PO STA (13:49)
--- NOTE | 2017-01-30 14:11 | RADRPT ---
PROCEDURE: US OB. CLINICAL INDICATION: Size and dates , pelvic pain TECHNIQUE: Multiple sonographic images of the pelvis and gravid uterus were obtained. The images were reviewed on a PACS workstation. COMPARISON: No prior studies are available for comparison. FINDINGS: There is a single viable intrauterine gestation. Cardiac activity is present with 161 beats per min osage. There is a variable presentation. The placenta is anterior. There is no evidence for an abruption or placenta previa. There is a normal amount of amniotic fluid with a MVP = 5.3 cm. Measurements were made in order to determine age. The results are as follows: BPD =2.7 cm HC =10.2 cm AC =8.6 cm FL =1.6 cm Estimated gestational age of approximately 14 weeks and 6 days based on ultrasound measurements. Clinical age: 14 weeks and 6 days. The estimated date of delivery is 07/25/2017, based on ultrasound measurements. The EFW = 107 g, 34%, based on LMP age. RPTAT: AA IMPRESSION: Single viable intrauterine gestation of approximately 14 weeks and 6 days based on ultrasound measu rements. .Chapincito Marin MD, Date Time Electronically viewed and signed by .Chapincito Marin MD, on 01/30/2017 14:10 .S/
[2017-01-30 15:19] LABS: ADD UMIC YES; URINE BILIRUBIN (Dip) NEGATIVE (NEGATIVE); URINE BLOOD (Dip) NEGATIVE (NEGATIVE); URINE COLOR YELLOW (YELLOW); URINE GLUCOSE (Dip) NEGATIVE (NEGATIVE); URINE KETONES (Dip) 3+ (NEGATIVE); URINE LEUKOCYTE ESTERASE (Dip) 1+ (NEGATIVE); URINE NITRITE (Dip) NEGATIVE (NEGATIVE); URINE TOTAL PROTEIN (Dip) 2+ (NEGATIVE); URINE UROBILINOGEN (Dip) 1.0 E.U./dL (0.1-1.0)
[2017-01-30] MEDS ORDERED: DEXTROSE 5%-0.45% NACL 500 ML BAG IV ONE (15:30)
[2017-01-30 15:55] LABS: BACTERIA,URINE MODERATE; MUCUS,URINE MODERATE; SQUAMOUS EPITHELIAL CELL,UR MANY
[2017-01-30 16:06] VITALS: BP 126/63; PULSE 66; RESP 20; TEMP 98.8
[2017-01-30] MEDS ORDERED: METO10TA92 PO (16:42)
[2017-01-30] MEDS ORDERED: CEPH-443 PO (16:51)
--- NOTE | 2017-01-30 16:51 | ERD ---
ER Documentation Chief Complaint Date/Time DATE: 01/30/17 TIME: 16:43 Chief Complaint ABD PAIN, NAUSEA, VOMITING, PT 15 WKS PG, NO VB (BRENDA SALDANA PA-C) HPI Patient is a 21-year-old female, , approximately 15 weeks , who presents to the emergency department with diffuse abdominal pain and vomiting. Patient states she has had symptoms similar to her current symptoms throughout her . Patient has had numerous visits to the emergency department for similar symptoms over the last 2 months. Patient states that her abdominal pain is severe and crampy in nature. She denies any fevers or chills. Patient denies taking any medication for symptoms. Patient denies any dysuria, vaginal bleeding or vaginal discharge. Patient states she has not seen her CONSTRUCTION ENGINEER yet. She states she had a visit this morning but she was unable to make it given her vomiting. (BRENDA SADLANA PA-C) ROS All systems reviewed and are negative except as per history of present illness. (BRENDA SALDANA PA-C) Medications Home Meds Active Scripts Cephalexin* (Keflex*) 500 Mg Capsule, 500 MG PO QID for 7 Days, CAP Prov:BRENDA SALDANA PA-C 01/30/17 Metoclopramide* (Reglan*) 10 Mg Tablet, 10 MG PO Q6 Y for NAUSEA AND/OR VOMITING , #20 TAB Prov:BRENDA SALDANA PA-C 01/30/17 Diphenhydramine Hcl* (Benadryl*) 25 Mg Cap, 25 MG PO Q6, #30 CAP Prov:DA GRADY 01/03/17 Metoclopramide* (Reglan*) 10 Mg Tablet, 10 MG PO Q6 Y for NAUSEA AND/OR VOMITING , #10 TAB Prov:DA GRADY 01/03/17 Acetaminophen* (Tylophen*) 500 Mg Capsule, 1 CAP PO Q6H Y for PAIN AND OR ELEVATED TEMP, #20 CAP Prov:LORENA BARTON PA-C 12/31/16 Ondansetron (Ondansetron Odt) 4 Mg Tab.rapdis, 4 MG PO Q6H Y for NAUSEA AND/OR VOMITING, #10 TAB Prov:LORENA BARTON PA-C 12/31/16 Allergies Allergies: Coded Allergies: No Known Allergy (Unverified , 10/18/12) PMhx/Soc History of Surgery: No Anesthesia Reaction: No Hx Neurological Disorder: No Hx Respiratory Disorders: No Hx Cardiac Disorders: No Hx Psychiatric Problems: No Hx Miscellaneous Medical Probl: No Hx Alcohol Use: No Hx Substance Use: No Hx Tobacco Use: No (BRENDA SALDANA PA-C) FmHx Family History: No diabetes (BRENDA SALDANA PA-C) Physical Exam Vitals Vital Signs Date Time Temp Pulse Resp B/P Pulse Ox O2 Delivery O2 Flow Rate FiO2 01/30/17 16:06 98.8 66 20 126/63 99 Room Air 01/30/17 12:14 97.9 59 17 120/81 100 (CRISTINA BEARD PA-C) Physical Exam GENERAL: Crying secondary to pain. Appears distraught. HEAD: Normocephalic, atraumatic. EYES: Pupils are equally reactive bilaterally. EOMs grossly intact. No conjunctival erythema. ENT: Moist mucous membranes. No uvula deviation. No kissing tonsils. NECK: Supple. No meningismus. Normal range of motion of the neck. LUNG: Clear to auscultation bilaterally. No rhonchi, wheezing, rales or coarse breath sounds. HEART: Regular rate and rhythm. No murmurs, rubs or gallops. ABDOMEN: No scars or rashes noted. Soft abdomen. Tender to palpation in all quadrants with minimal palpation. Positive bowel sounds in all four quadrants. No rebound tenderness, no guarding. No CVA tenderness. BACK: No midline tenderness. EXTREMITIES: Equal pulses bilaterally. No peripheral clubbing, cyanosis or edema. No unilateral leg swelling. NEUROLOGIC: Alert and oriented. Moving all four extremities without any difficulty. Normal speech. Steady gait. SKIN: Normal color. Warm and dry. No rashes or lesions. (BRENDA SALDANA PA-C) Result Diagram: 01/30/17 1235 01/30/17 1235 Results 24 hrs Laboratory Tests Test 01/30/17 12:35 01/30/17 14:40 White Blood Count 14.110^3/ul Red Blood Count 4.4610^6/ul Hemoglobin 13.5g/dl Hematocrit 38.4% Mean Corpuscular Volume 86.1fl Mean Corpuscular Hemoglobin 30.3pg Mean Corpuscular Hemoglobin Concent 35.2g/dl Red Cell Distribution Width 13.6% Platelet Count 11388^3/UL Mean Platelet Volume 9.6fl Neutrophils % 91.8% Lymphocytes % 6.2% Monocytes % 1.3% Eosinophils % 0.0% Basophils % 0.3% Nucleated Red Blood Cells % 0.0/100WBC Neutrophils # 13.010^3/ul Lymphocytes # 0.910^3/ul Monocytes # 0.210^3/ul Eosinophils # 0.010^3/ul Basophils # 0.010^3/ul Nucleated Red Blood Cells # 0.010^3/ul Sodium Level 140mmol/L Potassium Level 2.9mmol/L Chloride Level 101mmol/L Carbon Dioxide Level 22mmol/L Anion Gap 20 Blood Urea Nitrogen 6mg/dl Creatinine 0.45mg/dl Glucose Level 164mg/dl Calcium Level 10.2mg/dl Magnesium Level 1.6mg/dl Total Bilirubin 0.4mg/dl Direct Bilirubin 0.00mg/dl Indirect Bilirubin 0.4mg/dl Aspartate Amino Transf (AST/SGOT) 18IU/L Alanine Aminotransferase (ALT/SGPT) 21IU/L Alkaline Phosphatase 71IU/L Total Protein 8.6g/dl Albumin 4.9g/dl Globulin 3.70g/dl Albumin/Globulin Ratio 1.32 Lipase 117U/L Beta HCG, Quantitative 48567.0mIU/ml Urine Color YELLOW Urine Clarity CLOUDY Urine pH 6.5 Urine Specific [place] 1.025 Urine Ketones 3+ Urine Nitrite NEGATIVE Urine Bilirubin NEGATIVE Urine Urobilinogen 1.0 E.U./dL Urine Leukocyte Esterase 1+ Urine Microscopic RBC 2-5/HPF Urine Microscopic WBC 10-25/HPF Urine Squamous Epithelial Cells MANY Urine Bacteria MODERATE Urine Mucus MODERATE Urine Yeast FEW Urine Hemoglobin NEGATIVE Urine Glucose NEGATIVE% Urine Total Protein 2+ Current Medications Medications (Trade) Dose Ordered Sig/Roman Route PRN Reason Start Time Stop Time Status Last Admin Dose Admin Sodium Chloride (NS) 1,000 ml @ 1,000 mls/hr Q1H STAT IV 01/30/17 12:42 01/30/17 13:41 DC 01/30/17 13:02 Metoclopramide HCl (Reglan) 10 mg ONCE STAT IV 01/30/17 12:42 01/30/17 12:47 DC 01/30/17 13:02 Diphenhydramine HCl (Benadryl) 25 mg ONCE ONCE IV 01/30/17 13:00 01/30/17 13:01 DC 01/30/17 13:03 Potassium Chloride (Klor-Con 20) 40 meq ONCE STAT PO 01/30/17 13:49 01/30/17 13:51 DC 01/30/17 14:29 Dextrose/Sodium Chloride (D5-1/2ns) 500 ml ONCE ONCE IV 01/30/17 15:30 01/30/17 15:31 DC 01/30/17 15:36 (CRISTINA BEARD PA-C) Procedures/MDM ED COURSE: The patient was stable throughout ED course. I kept the patient and/or family informed of laboratory and diagnostic imaging results throughout the ED course. EKG: Read by Dr. Brown, attending physician. EKG shows sinus rhythm with marked sinus arrhythmia at a rate of 66 bpm Nonspecific T-wave abnormality noted DIAGNOSTIC IMAGING: Read by radiologist. DIAGNOSTIC IMAGING REPORT Patient: ION GRISSOM : 1995 Age: 21 Sex: F MR #: [id number] DOS: 01/30/17 1242 Ordering MD: BRENDA SALDANA PA-C Location: [facility] Room/Bed: PROCEDURE: US OB. CLINICAL INDICATION: Size and dates , pelvic pain TECHNIQUE: Multiple sonographic images of the pelvis and gravid uterus were obtained. The images were reviewed on a PACS workstation. COMPARISON: No prior studies are available for comparison. FINDINGS: There is a single viable intrauterine gestation. Cardiac activity is present with 161 beats per minute. There is a variable presentation. The placenta is anterior. There is no evidence for an abruption or placenta previa. There is a normal amount of amniotic fluid with a MVP = 5.3 cm. Measurements were made in order to determine age. The results are as follows: BPD = 2.7 cm HC = 10.2 cm AC = 8.6 cm FL = 1.6 cm Estimated gestational age of approximately 14 weeks and 6 days based on ultrasound measurements. Clinical age: 14 weeks and 6 days. The estimated date of delivery is 07/25/2017, based on ultrasound measurements. The EFW = 107 g, 34%, based on LMP age. RPTAT: AA IMPRESSION: Single viable intrauterine gestation of approximately 14 weeks and 6 days based on ultrasound measurements. .Chapincito Marin MD, MD Date Time Electronically viewed and signed by .Chapincito Marin MD, MD on 01/30/2017 14: 10 .S/ CC: BRENDA SALDANA PA-C DIAGNOSTIC IMAGING REPORT Patient: ION GRISSOM : 1995 Age: 21 Sex: F MR #: [id number] DOS: 01/30/17 0000 Ordering MD: BRENDA SALDANA PA-C Location: [facility] Room/Bed: PROCEDURE: US Abdomen (right upper quadrant). CLINICAL INDICATION: Abdominal pain TECHNIQUE: Multiple real-time longitudinal and transverse images of the right upper quadrant of the abdomen were acquired utilizing a curved array transducer. Images were reviewed on a high-resolution PACS workstation. COMPARISON: Ultrasound from 12/27/2016 FINDINGS: The liver is normal in size and echogenicity without focal mass or intrahepatic biliary dilatation. The gallbladder is normal. There is no pericholecystic fluid or gallbladder wall thickening or gallstones. No intra or extrahepatic biliary dilatation is seen. The common bile duct measures 2.5 mm in maximal dimension. The visualized portions of the pancreas are unremarkable with obscuration of the tail of the pancreas. No free fluid is identified. The right kidney measures 11.9 cm in length. There is normal echogenicity within the right kidney. There is no perinephric fluid collection. No hydronephrosis, mass, or calculus is seen. IMPRESSION: Unremarkable right upper quadrant ultrasound. RPTAT: JJ .Branden Miles MD, MD Date Time Electronically viewed and signed by .Branden Miles MD, MD on 01/30/2017 17:02 .A/ CC: BRENDA SALDANA PA-C MEDICATIONS GIVEN: IV fluids, Reglan, Benadryl Patient tolerated medication well with no adverse reactions. No additional episodes of vomiting were noted throughout ED course. MEDICAL DECISION MAKING: This is a 21-year-old female who presents with diffuse abdominal pain and vomiting. Patient states she has had symptoms throughout her . Vital signs were reviewed. Patient is afebrile. CBC showed slight elevation in white count at 14.1. CMP showed potassium of 2.9. No evidence of renal or liver disease at this time. Lipase showed no evidence of acute pancreatitis. UA showed positive ketones, positive WBCs and moderate epithelial squamous cells. Sample likely a dirty catch. However we will treat patient empirically at this time. Transbdominal OB ultrasound showed Single viable intrauterine gestation of approximately 14 weeks and 6 days based on ultrasound measurements.Gallbladder US was unremarkable. I discussed the patient's repeat visits to the ED and lab findings with my supervising physician, Dr. Brown. Patient was given KCl for low potassium count. Potassium rich diet discussed with patient. On numerous reexaminations, the patient was noted to be sleeping comfortably. Patient did not appear to be in any acute distress. I explained patient's findings to her and she reported feeling better. Patient was advised that she will need to follow-up with her CONSTRUCTION ENGINEER in the next few days. At this time, patient's presentation is most consistent with hyperemesis gravidum, UTI and hypokalemia. I have a much lower clinical concern for acute coronary syndrome, AAA, mesenteric ischemia, lower lobe pneumonia, DKA, bowel perforation, cholecystitis, choledocholithiasis, ascending cholangitis, gastritis, GERD, pyelonephritis, nephrolithiasis, appendicitis, ectopic , ovarian torsion or tubo-ovarian abscess.] PRESCRIPTIONS: Reglan, Keflex DISCHARGE: At this time, patient is stable for discharge and outpatient management. I have instructed the patient to follow-up with his/her primary care physician in 1-2 days. I have instructed the patient to promptly return to the ER at any time for any new or worsening symptoms including increased pain, nausea, vomiting, diarrhea, fever, weakness or LOC. The patient and/or family expressed understanding of and agreement with this plan. All questions were answered. Home care instructions were provided. (BRENDA SALDANA PA-C) 21-year-old female presenting to the emergency department with hyperemesis gravidarum, hypokalemia that was passed down to me from SWETA Gamez to record patient's gallbladder ultrasound. Gallbladder ultrasound was done and radiologist stated: Unremarkable right upper quadrant ultrasound. Patient will be discharged per SWETA Saldana's instructions (CRISTINA BEARD PA-C) Departure Diagnosis: Primary Impression: Hyperemesis gravidarum Additional Impressions: UTI (urinary tract infection) Urinary tract infection type: site unspecified Hematuria presence: without hematuria Qualified Code: N39.0 - Urinary tract infection without hematuria, site unspecified Hypokalemia Condition: Stable Patient Instructions: Hyperemesis Gravidarum Referrals: [facility] YOU HAVE RECEIVED A MEDICAL SCREENING EXAM AND THE RESULTS INDICATE THAT YOU DO NOT HAVE A CONDITION THAT REQUIRES URGENT TREATMENT IN THE EMERGENCY DEPARTMENT. FURTHER EVALUATION AND TREATMENT OF YOUR CONDITION CAN WAIT UNTIL YOU ARE SEEN IN YOUR DOCTORS OFFICE WITHIN THE NEXT 1-2 DAYS. IT IS YOUR RESPONSIBILITY TO MAKE AN APPOINTMENT FOR FOLOW-UP CARE. IF YOU HAVE A PRIMARY DOCTOR --you should call your primary doctor and schedule an appointment IF YOU DO NOT HAVE A PRIMARY DOCTOR YOU CAN CALL OUR PHYSICIAN REFERRAL HOTLINE AT IF YOU CAN NOT AFFORD TO SEE A PHYSICIAN YOU CAN CHOSE FROM THE FOLLOWING [facility] [address] [facility]. [facility] [address] [facility] [address] [facility] [facility] [address] [facility]. [facility] [address] [facility]. [facility]. [address] [facility] YOU HAVE RECEIVED A MEDICAL SCREENING EXAM AND THE RESULTS INDICATE THAT YOU DO NOT HAVE A CONDITION THAT REQUIRES URGENT TREATMENT IN THE EMERGENCY DEPARTMENT. FURTHER EVALUATION AND TREATMENT OF YOUR CONDITION CAN WAIT UNTIL YOU ARE SEEN IN YOUR DOCTORS OFFICE WITHIN THE NEXT 1-2 DAYS. IT IS YOUR RESPONSIBILITY TO MAKE AN APPOINTMENT FOR FOLOW-UP CARE. IF YOU HAVE A PRIMARY DOCTOR --you should call your primary doctor and schedule and appointment IF YOU DO NOT HAVE A PRIMARY DOCTOR YOU CAN CALL OUR PHYSICIAN REFERRAL HOTLINE AT . IF YOU CAN NOT AFFORD TO SEE A PHYSICIAN YOU CAN CHOSE FROM THE FOLLOWING [facility] INSTITUTIONS: [facility] [address] [place] [address] [facility] [address] [place] [address] [facility] [address] [place] [address] [employer] [address] [facility] [address] [place] [address]ABUSLEME [facility] [address] [place] [address] DR[address] YEE B[place] [address] [place] [address] DR MAGANA [facility] [address] [facility], [address], [facility] [address] [address] [address] [place] [address] [facility] [address] [place] [address] [phone] [facility] [address] - [address], [facility] [address] [address] [address] [facility]. [address], [facility] [address] [address] [address] [place] [address] Additional Instructions: Call your primary care doctor TOMORROW for an appointment during the next 1-2 days.See the doctor sooner or return here if your condition worsens before your appointment time. BRENDA SALDANA PA-C January 30, 2017 16:51 CRISTINA BEARD PA-C January 30, 2017 17:14
--- NOTE | 2017-01-30 17:02 | RADRPT ---
PROCEDURE: US Abdomen (right upper quadrant). CLINICAL INDICATION: Abdominal pain TECHNIQUE: Multiple real-time longitudinal and transverse images of the right upper quadrant of th e abdomen were acquired utilizing a curved array transducer. Images were reviewed on a high-resoluti on PACS workstation. COMPARISON: Ultrasound from 12/27/2016 FINDINGS: The liver is normal in size and echogenicity without focal mass or intrahepatic biliary dilatation. The gallbladder is normal. There is no pericholecystic fluid or gallbladder wall thickening or gal lstones. No intra or extrahepatic biliary dilatation is seen. The common bile duct measures 2.5 mm in maximal dimension. The visualized portions of the pancreas are unremarkable with obscuration of the tail of the pancreas. No free fluid is identified. The right kidney measures 11.9 cm in length. There is normal echogenicity within the right kidney. There is no perinephric fluid collection. No hydronephrosis, mass, or calculus is seen. IMPRESSION: Unremarkable right upper quadrant ultrasound. RPTAT: JJ .Branden Miles MD, MD Date Time Electronically viewed and signed by .Branden Miles MD, on 01/30/2017 17:02 .A/
== END 2017-01-30 17:30 | disposition home or self-care (01) ==
LOC: FTE 12:10
DX: O21.0 Mild hyperemesis gravidarum (principal); O23.42 Unspecified infection of urinary tract in pregnancy, second trimester; E87.6 Hypokalemia; O99.282 Endocrine, nutritional and metabolic diseases complicating pregnancy, second trimester; R10.2 Pelvic and perineal pain; Z3A.14 14 weeks gestation of pregnancy
CPT/HCPCS: 76705; 76805; 80053; 81001; 83690; 83735; 84702; 85025; 93005; J1200; J2765; J7030; Z7610; 36415; 81003; 96374; 96375

== ENCOUNTER 2017-02-04 10:37 | Inpatient (IN) | payer OTHER ==
[~2017-02-04] VITALS: Ht 165.1 cm; Wt 73.4 kg
[~2017-02-04 10:37] MED LIST changes: +CEPH-443 PO
--- NOTE | 2017-02-04 11:10 | ERA ---
ER Documentation Chief Complaint Date/Time DATE: 02/04/17 TIME: 11:09 Chief Complaint Vomiting HPI The patient is a 21-year-old female, presenting to the ER because of persistent vomiting ever since he became about 16 weeks ago. She was seen in the ER 5 days ago and treated with IV fluids for dehydration and discharged on antibiotic for acute cystitis. She saw her physician today who sent her back to the ER because of persistent vomiting and losing weight. She denies fever, chills, neck pain, chest pain, dyspnea. She is unable to eat because of the vomiting, complaints of low back pain, denies dysuria, diarrhea, constipation. She does not smoke nor drink, 1 Past medical/surgical history: ROS All systems reviewed and are negative except as per history of present illness. Medications Home Meds Discontinued Scripts Cephalexin* (Keflex*) 500 Mg Capsule, 500 MG PO QID for 7 Days, CAP Prov:BRENDA THOMPSON PA-C 01/30/17 Metoclopramide* (Reglan*) 10 Mg Tablet, 10 MG PO Q6 Y for NAUSEA AND/OR VOMITING , #20 TAB Prov:BRENDA THOMPSON PA-C 01/30/17 Diphenhydramine Hcl* (Benadryl*) 25 Mg Cap, 25 MG PO Q6, #30 CAP Prov:DA GRADY 01/03/17 Metoclopramide* (Reglan*) 10 Mg Tablet, 10 MG PO Q6 Y for NAUSEA AND/OR VOMITING , #10 TAB Prov:DA GRADY 01/03/17 Acetaminophen* (Tylophen*) 500 Mg Capsule, 1 CAP PO Q6H Y for PAIN AND OR ELEVATED TEMP, #20 CAP Prov:LORENA BARTON PA-C 12/31/16 Ondansetron (Ondansetron Odt) 4 Mg Tab.rapdis, 4 MG PO Q6H Y for NAUSEA AND/OR VOMITING, #10 TAB Prov:LORENA BARTON PA-C 12/31/16 Allergies Allergies: Coded Allergies: No Known Allergy (Unverified , 10/18/12) PMhx/Soc History of Surgery: No Anesthesia Reaction: No Hx Neurological Disorder: No Hx Respiratory Disorders: No Hx Cardiac Disorders: No Hx Psychiatric Problems: No Hx Miscellaneous Medical Probl: No Hx Alcohol Use: No Hx Substance Use: No Hx Tobacco Use: No Physical Exam Vitals Vital Signs Date Time Temp Pulse Resp B/P Pulse Ox O2 Delivery O2 Flow Rate FiO2 02/04/17 10:40 98.5 129 20 129/85 97 Physical Exam Const: No acute distress. Head: Atraumatic. Eyes: Normal Conjunctiva. ENT: Normal External Ears, Nose and Mouth. Neck: Full range of motion. No meningismus. Resp: Clear to auscultation bilaterally. Cardio: Regular, tachycardic Abd: Soft, non distended, normal bowel sounds, non tender. Gravid Skin: No petechiae or rashes. Back: No midline or flank tenderness. Ext: No cyanosis, or edema. Neur: Awake and alert. No focal deficit Psych: Normal Mood and Affect. Result Diagram: 02/04/17 1115 02/04/17 1115 Results 24 hrs Laboratory Tests Test 02/04/17 11:15 White Blood Count 17.110^3/ul Red Blood Count 5.0210^6/ul Hemoglobin 15.2g/dl Hematocrit 41.7% Mean Corpuscular Volume 83.1fl Mean Corpuscular Hemoglobin 30.3pg Mean Corpuscular Hemoglobin Concent 36.5g/dl Red Cell Distribution Width 13.4% Platelet Count 88275^3/UL Mean Platelet Volume 9.9fl Neutrophils % 81.9% Lymphocytes % 11.9% Monocytes % 5.0% Eosinophils % 0.2% Basophils % 0.4% Nucleated Red Blood Cells % 0.0/100WBC Neutrophils # 14.010^3/ul Lymphocytes # 2.010^3/ul Monocytes # 0.910^3/ul Eosinophils # 0.010^3/ul Basophils # 0.110^3/ul Nucleated Red Blood Cells # 0.010^3/ul Sodium Level 133mmol/L Potassium Level 2.7mmol/L Chloride Level 90mmol/L Carbon Dioxide Level 27mmol/L Anion Gap 19 Blood Urea Nitrogen 8mg/dl Creatinine 0.47mg/dl Glucose Level 111mg/dl Calcium Level 10.5mg/dl Total Bilirubin 0.7mg/dl Direct Bilirubin 0.00mg/dl Indirect Bilirubin 0.7mg/dl Aspartate Amino Transf (AST/SGOT) 26IU/L Alanine Aminotransferase (ALT/SGPT) 33IU/L Alkaline Phosphatase 85IU/L Total Protein 8.9g/dl Albumin 4.8g/dl Globulin 4.10g/dl Albumin/Globulin Ratio 1.17 Lipase 31U/L Current Medications Medications (Trade) Dose Ordered Sig/Roman Route PRN Reason Start Time Stop Time Status Last Admin Dose Admin Morphine Sulfate (morphine) 2 mg ONCE STAT IV 02/04/17 11:15 02/04/17 11:16 DC 02/04/17 11:33 Ondansetron HCl 4 mg 4 mg ONCE STAT IV 02/04/17 11:15 02/04/17 11:16 DC 02/04/17 11:32 Sodium Chloride 2,080 ml @ 2,080 mls/hr BOLUS X1 ONCE IV 02/04/17 11:30 02/04/17 12:29 DC 02/04/17 11:31 Potassium Chloride (KCl 40 MEQ/250 ML NS) 250 ml @ 62.5 mls/hr ONCE ONCE IVPB 02/04/17 14:00 02/04/17 17:59 Potassium Chloride (Klor-Con 20) 40 meq ONCE STAT PO 02/04/17 12:39 02/04/17 12:40 DC Procedures/MDM MEDICAL MAKING DECISION: The patient is a 31-year-old female, presenting to the ER because of acute hyperemesis gravidarum, acute hypokalemia. She was treated with 3 L normal saline for acute dehydration, potassium chloride 40 mEq IV and 40 mEq p.o. for acute severe hypokalemia. Magnesium, urinalysis are pending The differential diagnoses considered include but are not limited to cholelithiasis, cholecystitis, cystitis, pancreatitis, hepatitis, gastritis, peptic ulcer disease, gastric ulcer, appendicitis, diverticulitis, cholangitis, choledocholithiasis, partial small bowel obstruction. Departure Diagnosis: Primary Impression: Hyperemesis gravidarum Additional Impression: Hypokalemia Condition: Stable Comments I discussed the findings with the patient. I discussed the patient with the on- call nutrition partner Dr Fowler was made aware of the lab, the treatment, the patient condition. The patient is admitted to [facility] at 12:35 pm The patient's blood pressure was elevated (>120/80) but appears stable without evidence of hypertension emergency or urgency. The patient was counseled about the risks of hypertension and urged to pursue outpatient monitoring and therapy within a week with their primary care physician. ROSA M GÓMEZ MD February 04, 2017 11:10
[2017-02-04] MEDS ORDERED: morphine 2 MG INJ IV STA (11:15)
[2017-02-04] MEDS ORDERED: ONDANSETRON 4 MG INJ IV STA ×2 (11:15→13:51)
[2017-02-04] MEDS ORDERED: SOD CHLORIDE 0.9% IV ONE (11:30)
[2017-02-04 11:33] LABS: ADD SCAN DIFF NO
[2017-02-04 11:39] LABS: BASOPHIL # 0.1 10^3/ul (0.0-0.1); BASOPHILS % 0.4 % (0.0-2.0); EOSINOPHILS % 0.2 % (0.0-7.0); HEMATOCRIT 41.7 % (37.0-47.0); HEMOGLOBIN 15.2 g/dl (12.0-16.0); LYMPHOCYTES % 11.9 % (15.0-51.0); MEAN CORPUSCULAR HEMOGLOBIN 30.3 pg (29.0-33.0); MEAN CORPUSCULAR HGB CONC 36.5 g/dl (32.0-37.0); MEAN CORPUSCULAR VOLUME 83.1 fl (82.0-101.0); MEAN PLATELET VOLUME 9.9 fl (7.4-10.4); MONOCYTE # 0.9 10^3/ul (0.3-0.9); NEUTROPHILS % 81.9 % (39.0-77.0); PLATELET COUNT 321 10^3/UL (140-415); RED BLOOD COUNT 5.02 10^6/ul (4.20-5.40); RED CELL DISTRIBUTION WIDTH 13.4 % (11.5-14.5); WHITE BLOOD COUNT 17.1 10^3/ul (4.8-10.8)
[2017-02-04 11:52] LABS: ALBUMIN 4.8 g/dl (3.3-4.9); ALBUMIN/GLOBULIN RATIO 1.17; BILIRUBIN,INDIRECT 0.7 mg/dl (0-1.1); BILIRUBIN,TOTAL 0.7 mg/dl (0.2-1.3); CALCIUM 10.5 mg/dl (8.4-10.2); CREATININE 0.47 mg/dl (0.44-1.00); TOTAL PROTEIN 8.9 g/dl (6.1-8.1)
[2017-02-04 12:24] LABS: POTASSIUM 2.7 mmol/L (3.5-5.1)
[2017-02-04] MEDS ORDERED: POTASSIUM CHLORIDE (SR) 20 MEQ TAB PO STA (12:39)
[2017-02-04 12:53] LABS: URINE BLOOD (Dip) POC Negative (NEGATIVE)
[2017-02-04] MEDS ORDERED: POTASSIUM CHLORIDE 20 MEQ POWDER FOR ORAL SOLN PO STA (12:59)
[2017-02-04] MEDS ORDERED: SOD CHLORIDE 0.9% 1,000 ML IV ONE (13:00)
[2017-02-04 13:38] LABS: ADD UMIC YES; URINE BILIRUBIN (Dip) 1+ (NEGATIVE); URINE BLOOD (Dip) NEGATIVE (NEGATIVE); URINE COLOR LT. YELLOW (YELLOW); URINE GLUCOSE (Dip) NEGATIVE (NEGATIVE); URINE KETONES (Dip) 3+ (NEGATIVE); URINE LEUKOCYTE ESTERASE (Dip) 1+ (NEGATIVE); URINE NITRITE (Dip) NEGATIVE (NEGATIVE); URINE TOTAL PROTEIN (Dip) 1+ (NEGATIVE); URINE UROBILINOGEN (Dip) 0.2 E.U./dL (0.1-1.0)
[2017-02-04] MEDS ORDERED: CEFTRIAXONE 1 GM/50 ML (PMX) 50 ML IVPB ONE (14:00)
[2017-02-04] MEDS ORDERED: morphine 2 MG INJ IV ONE (14:00)
[2017-02-04] MEDS ORDERED: POTASSIUM CHLORIDE 250 ML IVPB ONE (14:00)
[2017-02-04 14:32] LABS: BACTERIA,URINE FEW; URINE RBCS NONE SEEN /HPF (0)
[2017-02-04 14:33] LABS: ICTOTEST NEGATIVE (NEGATIVE); MUCUS,URINE FEW
[2017-02-04 16:01] VITALS: TEMP 98.5
[2017-02-04 17:15] VITALS: BP 111/56; RESP 16
[2017-02-04 17:51] VITALS: Ht 165.1 cm; Wt 73.4 kg
[2017-02-04 19:36] VITALS: BP 117/58; RESP 20
[2017-02-04] MEDS ORDERED: ONDANSETRON 4 MG INJ IV PRN (20:30)
[2017-02-04] MEDS ORDERED: morphine 10 MG INJ IM PRN (20:30)
[2017-02-04] MEDS ORDERED: ACETAMINOPHEN 325 MG TAB PO PRN (20:30)
[2017-02-04] MEDS: morphine 2 MG INJ IV PRN (20:42)
--- NOTE | 2017-02-05 02:00 | HP ---
Date/Time of Note Date/Time of Note DATE: 02/04/17 TIME: 22:30 Assessment/Plan VTE Prophylaxis VTE Prophylaxis Intervention: SCD's Lines/Catheters [facility] Saline Lock Urinary Cath still in place: No Assessment/Plan Assessment/Plan 1. Sepsis, as evidenced by leukocytosis and tachycardia 2/2 pyelonephritis - Rocephin - f/u urine and blood cultures - ID consult as needed - pain mgmt 2. pyelonephritis - see above 3. Persistent Hyperemesis Gravidarum: - Since , pt has been suffering from persistent emesis requiring frequent ER visits and an admission here 5 weeks ago. currently, she is not complaining of vomiting - Zofran PRN - She is being followed by OB, who will address this issue if recurs while in- house 4. Hypokalemia; likely 2/2 above - replete as needed 5. Fifteen weeks - Be aware of current medications - Ob following HPI/ROS Admit Date/Time Admit Date/Time February 04, 2017 at 13:48 Hx of Present Illness This is a 21 yo female who is 15 weeks who presented to ER c/o flank and lower back pain. She was seen in ER 5 days ago and was diagnosed with UTI and discharged with abx. She has been seen in ER multiple times and admitted 5 weeks ago for hyperemesis Gravidarum. She has lost over 10lbs because of decreased po intake as a result of vomiting. Patient was actually admitted under OB this morning and a request was placed to medicine for back pain. Patient actually has Pyelonephritis and her flank and lower back pain is most likely a result of pyelo. In ER, she was initially tachy with HR ~ 130. labs showed WBC of 17K and K of 2.7, which was repleted. she also received a dose of Rocephin in ER. . PMH/Family/Social Past Medical History Medical History: other (Hyperemesis gravidarum) Social History Alcohol Use: none Smoking Status: Unknown if ever smoked Drug Use: none Exam/Review of Systems Vital Signs Vitals Vital Signs Date Time Temp Pulse Resp B/P Pulse Ox O2 Delivery O2 Flow Rate FiO2 02/04/17 19:36 98.4 65 20 117/58 97 02/04/17 16:01 Room Air Intake and Output 02/04/17 02/04/1717 15:00 23:00 07:00 Intake Total 2080 ml Balance 2080 ml Exam Constitutional: alert, oriented Head: atraumatic, normocephalic Eyes: EOMI, PERRL Respiratory: clear to auscultation, normal air movement Cardiovascular: nl pulses, regular rate and rhythm Gastrointestinal: other (Flank and lower back tenderness), soft Extremities: normal pulses Labs Result Diagram: 02/04/17 1115 02/04/17 1115 Medications Medications Current Medications Acetaminophen/ Hydrocodone Bitart ([place] (5/325)) 1 tab Q6H PRN PO FOR MILD TO MODERATE PAIN; Start 02/04/17 at 20:30 Ondansetron HCl (Zofran Inj) 4 mg Q6H PRN IV NAUSEA AND/OR VOMITING; Start 02/04 at 20:30 Acetaminophen (Tylenol Tab) 650 mg Q6H PRN PO PAIN AND OR ELEVATED TEMP; Start 02/04/17 at 20:30 Morphine Sulfate 2 mg 2 mg Q4H PRN IV FOR SEVERE PAIN Last administered on t 20:42; Admin Dose 2 MG; Start 02/04/17 at 21:00 Ceftriaxone Sodium (Rocephin) 50 ml @ 100 mls/hr Q24H IVPB ; Start 02/05/17 at 14:00 SHANNON LLANES MD February 05, 2017 01:59
[2017-02-05] MEDS: morphine 2 MG INJ IV PRN ×2 (05:05→11:40)
[2017-02-05 05:48] LABS: ADD SCAN DIFF NO
[2017-02-05 05:55] LABS: BASOPHIL # 0.1 10^3/ul (0.0-0.1); BASOPHILS % 0.5 % (0.0-2.0); EOSINOPHILS # 0.1 10^3/ul (0.0-0.5); EOSINOPHILS % 0.8 % (0.0-7.0); HEMATOCRIT 34.1 % (37.0-47.0); HEMOGLOBIN 11.4 g/dl (12.0-16.0); LYMPHOCYTES # 1.9 10^3/ul (0.8-2.9); LYMPHOCYTES % 17.1 % (15.0-51.0); MEAN CORPUSCULAR HEMOGLOBIN 30.1 pg (29.0-33.0); MEAN CORPUSCULAR HGB CONC 33.4 g/dl (32.0-37.0); MEAN PLATELET VOLUME 9.9 fl (7.4-10.4); MONOCYTE # 0.6 10^3/ul (0.3-0.9); MONOCYTES % 5.7 % (0.0-11.0); NEUTROPHIL # 8.2 10^3/ul (1.6-7.5); NEUTROPHILS % 75.3 % (39.0-77.0); PLATELET COUNT 201 10^3/UL (140-415); RED BLOOD COUNT 3.79 10^6/ul (4.20-5.40); RED CELL DISTRIBUTION WIDTH 13.8 % (11.5-14.5); WHITE BLOOD COUNT 10.8 10^3/ul (4.8-10.8)
[2017-02-05 06:07] LABS: ALBUMIN/GLOBULIN RATIO 1.03; BILIRUBIN,INDIRECT 0.5 mg/dl (0-1.1); BILIRUBIN,TOTAL 0.5 mg/dl (0.2-1.3); CREATININE 0.49 mg/dl (0.44-1.00); TOTAL PROTEIN 5.9 g/dl (6.1-8.1)
[2017-02-05 06:08] LABS: CALCIUM 8.2 mg/dl (8.4-10.2); MAGNESIUM 1.7 mg/dl (1.7-2.5); PHOSPHORUS 2.8 mg/dl (2.5-4.9)
--- NOTE | 2017-02-05 06:41 | CONS ---
Date/Time of Note Date/Time of Note DATE: 02/04/17 TIME: 20:19 Consultation Date/Type/Reason Admit Date/Time February 04, 2017 at 13:48 Type of Consultation: Hospital consult Reason for Consultation February 04, 2017 Hospital consult Hx of Present Illness This patient is a 21 years old primigravida about 15 and half weeks came to emergency room complaining of back pain nausea and vomiting Actually she was seen in the emergency room 5 days earlier with the same complaint as well as dysuria and for possible urinary tract infection she was placed on antibiotic and antiemetic and discharged home. Today she was sent from her physician's office due to nausea vomiting and weight loss. Her main complaint when I examine her is back pain which involves the entire back from back of the neck to the sacrum . So the complaint involved pain in the shoulder , CVA areas and low back. In fact when I examine her later in the day, she mentioned that she did not have much of the vomiting in fact never vomited in the past 6 hours in the hospital, but complaining of pain in her back as I mentioned from neck to sacrum . No chest pain , no chills, no fever, no any other respiratory symptoms Laboratory Tests Test 02/04/17 11:15 02/04/17 12:45 02/04/17 12:54 02/05/17 05:21 White Blood Count 17.110^3/ul 10.810^3/ul Red Blood Count 5.0210^6/ul 3.7910^6/ul Hemoglobin 15.2g/dl 11.4g/dl Hematocrit 41.7% 34.1% Mean Corpuscular Volume 83.1fl 90.0fl Mean Corpuscular Hemoglobin 30.3pg 30.1pg Mean Corpuscular Hemoglobin Concent 36.5g/dl 33.4g/dl Red Cell Distribution Width 13.4% 13.8% Platelet Count 57662^3/UL 65589^3/UL Mean Platelet Volume 9.9fl 9.9fl Neutrophils % 81.9% 75.3% Lymphocytes % 11.9% 17.1% Monocytes % 5.0% 5.7% Eosinophils % 0.2% 0.8% Basophils % 0.4% 0.5% Nucleated Red Blood Cells % 0.0/100WBC 0.0/100WBC Neutrophils # 14.010^3/ul 8.210^3/ul Lymphocytes # 2.010^3/ul 1.910^3/ul Monocytes # 0.910^3/ul 0.610^3/ul Eosinophils # 0.010^3/ul 0.110^3/ul Basophils # 0.110^3/ul 0.110^3/ul Nucleated Red Blood Cells # 0.010^3/ul 0.010^3/ul Sodium Level 133mmol/L 133mmol/L Potassium Level 2.7mmol/L 3.0mmol/L Chloride Level 90mmol/L 101mmol/L Carbon Dioxide Level 27mmol/L 21mmol/L Anion Gap 19 14 Blood Urea Nitrogen 8mg/dl 6mg/dl Creatinine 0.47mg/dl 0.49mg/dl Glucose Level 111mg/dl 70mg/dl Calcium Level 10.5mg/dl 8.2mg/dl Magnesium Level 1.7mg/dl 1.7mg/dl Total Bilirubin 0.7mg/dl 0.5mg/dl Direct Bilirubin 0.00mg/dl 0.00mg/dl Indirect Bilirubin 0.7mg/dl 0.5mg/dl Aspartate Amino Transf (AST/SGOT) 26IU/L 18IU/L Alanine Aminotransferase (ALT/SGPT) 33IU/L 26IU/L Alkaline Phosphatase 85IU/L 51IU/L Total Protein 8.9g/dl 5.9g/dl Albumin 4.8g/dl 3.0g/dl Globulin 4.10g/dl 2.90g/dl Albumin/Globulin Ratio 1.17 1.03 Lipase 31U/L Urine Color LT. YELLOW Urine Clarity CLEAR Urine pH 7.0 Urine Specific [place] 1.015 Urine Ketones 3+ Urine Nitrite NEGATIVE Urine Bilirubin 1+ Urine Ictotest NEGATIVE Urine Urobilinogen 0.2 E.U./dL Urine Leukocyte Esterase 1+ Urine Microscopic RBC NONE SEEN/HPF Urine Microscopic WBC 10-25/HPF Urine Epithelial Cells FEW Urine Bacteria FEW Urine Mucus FEW Urine Hemoglobin NEGATIVE Urine Glucose NEGATIVE% Urine Total Protein 1+ Bedside Urine pH (LAB) 7.0 Bedside Urine Protein (LAB) 1+ Bedside Urine Glucose (UA) Negative Bedside Urine Ketones (LAB) 4+ Bedside Urine Blood Negative Bedside Urine Nitrite (LAB) Negative Bedside Urine Leukocyte Esterase (L 1+ Phosphorus Level 2.8mg/dl Current Medications Medications (Trade) Dose Ordered Sig/Roman Route PRN Reason Start Time Stop Time Status Last Admin Dose Admin Morphine Sulfate (morphine) 2 mg ONCE STAT IV 02/04/17 11:15 02/04/17 11:16 DC 02/04/17 11:33 Ondansetron HCl 4 mg 4 mg ONCE STAT IV 02/04/17 11:15 02/04/17 11:16 DC 02/04/17 11:32 Sodium Chloride 2,080 ml @ 2,080 mls/hr BOLUS X1 ONCE IV 02/04/17 11:30 02/04/17 12:29 DC 02/04/17 11:31 Potassium Chloride (KCl 40 MEQ/250 ML NS) 250 ml @ 62.5 mls/hr ONCE ONCE IVPB 02/04/17 14:00 02/04/17 18:00 DC 02/04/17 14:28 Potassium Chloride 40 meq 40 meq ONCE STAT PO 02/04/17 12:39 02/04/17 12:40 DC Sodium Chloride (NS) 1,000 ml @ 1,000 mls/hr Q1H ONCE IV 02/04/17 13:00 02/04/17 13:59 DC 02/04/17 13:08 Potassium Chloride (Potassium Chloride Pwd/Soln) 40 meq ONCE STAT PO 02/04/17 12:59 02/04/17 13:00 DC 02/04/17 13:08 Ondansetron HCl 4 mg 4 mg ONCE STAT IV 02/04/17 13:51 02/04/17 13:52 DC 02/04/17 13:59 Ceftriaxone Sodium (Rocephin) 50 ml @ 100 mls/hr ONCE ONCE IVPB 02/04/17 14:00 02/04/17 14:29 DC 02/04/17 14:07 Morphine Sulfate (morphine) 2 mg ONCE ONCE IV 02/04/17 14:00 02/04/17 14:01 DC 02/04/17 14:09 Acetaminophen/ Hydrocodone Bitart ([place] (5/325)) 1 tab Q6H PRN PO FOR MILD TO MODERATE PAIN 02/04/17 20:30 Morphine Sulfate (morphine) 3 mg Q4H PRN IM FOR SEVERE PAIN 02/04/17 20:30 02/04/17 20:40 DC Ondansetron HCl (Zofran Inj) 4 mg Q6H PRN IV NAUSEA AND/OR VOMITING 02/04/17 20:30 Acetaminophen (Tylenol Tab) 650 mg Q6H PRN PO PAIN AND OR ELEVATED TEMP 02/04/17 20:30 Morphine Sulfate 2 mg 2 mg Q4H PRN IV FOR SEVERE PAIN 02/04/17 21:00 02/05/17 05:05 Ceftriaxone Sodium (Rocephin) 50 ml @ 100 mls/hr Q24H IVPB 02/05/17 14:00 Constitutional: other (Some nausea), No chills, No diaphoresis, No disoriented, No febrile, No improved, No no complaints, No poor po, No requiring IVF, No requiring O2 Eyes: No discharge, No no complaints, No other, No pain, No redness, No visual change ENT: No bleeding, No congestion, No discharge, No dysphagia, No no complaints, No other, No pain, No sore throat Respiratory: No cough, No no complaints, No other, No pain, No pleuritic pain, No shortness of breath, No sputum, No wheezing Cardiovascular: No chest pain, No edema, No lightheadedness, No no complaints, No orthopenea, No other, No palpitations, No paroxysmal nocturnal dyspnea Gastrointestinal: other (Nausea), No blood, No constipation, No decreased appetite, No diarrhea, No flatus, No nausea, No no complaints, No pain, No passing stool, No vomiting Genitourinary: other ( about 16 weeks heart tone is audible no contractions no tenderness), No bleeding, No discharge, No dysuria, No flank pain, No hematuria, No no complaints Musculoskeletal: other (As I mentioned she is complaining of muscle pain mostly in her back some on her lower extremity), No back pain, No bone/joint pain, No neck pain, No no complaints, No restricted range of motion, No swelling Skin: No bruising, No erythema, No laceration, No no complaints, No other, No pruritis, No rash, No skin lesions Neurologic: other (Knee-jerk reflexes normal), No confusion, No dizziness, No focal-weakness, No headache, No no complaints , No seizure, No syncope Endocrine: No dry skin, No no complaints, No other, No polydypsia, No polyuria , No temp intolerance Lymphatic: No adenopathy, No lymphadema, No no complaints, No other, No tender nodes Psychological: other (She does not seem to be very happy with this and has multiple different complain), No anxiety, No confusion, No depression, No nl mood/affect, No no complaints , No suicidal Immunologic: No immunodeficiency, No no complaints, No other, No pruritis, No rhinitis, No urticaria Additional Comments Hospital plan: We will check the heart tone on a daily basis. But she will need the assistance of our internal medicine colleagues. I discussed her condition with our hospitalist Social History Smoking Status: Current every day smoker Exam/Review of Systems Vital Signs Vitals Vital Signs Date Time Temp Pulse Resp B/P Pulse Ox O2 Delivery O2 Flow Rate FiO2 02/04/17 19:36 98.4 65 20 117/58 97 02/04/17 16:01 Room Air Results Result Diagram: 02/04/17 1115 02/04/17 1115 Results 24 hrs Laboratory Tests Test 02/04/17 11:15 02/04/17 12:45 02/04/17 12:54 White Blood Count 17.1 #H Red Blood Count 5.02 Hemoglobin 15.2 Hematocrit 41.7 Mean Corpuscular Volume 83.1 Mean Corpuscular Hemoglobin 30.3 Mean Corpuscular Hemoglobin Concent 36.5 Red Cell Distribution Width 13.4 Platelet Count 321 Mean Platelet Volume 9.9 Neutrophils % 81.9 H Lymphocytes % 11.9 L Monocytes % 5.0 Eosinophils % 0.2 Basophils % 0.4 Nucleated Red Blood Cells % 0.0 Neutrophils # 14.0 H Lymphocytes # 2.0 Monocytes # 0.9 Eosinophils # 0.0 Basophils # 0.1 Nucleated Red Blood Cells # 0.0 Sodium Level 133 L Potassium Level 2.7 *L Chloride Level 90 L Carbon Dioxide Level 27 Anion Gap 19 H Blood Urea Nitrogen 8 Creatinine 0.47 Glucose Level 111 Calcium Level 10.5 H Magnesium Level 1.7 Total Bilirubin 0.7 Direct Bilirubin 0.00 Indirect Bilirubin 0.7 Aspartate Amino Transf (AST/SGOT) 26 Alanine Aminotransferase (ALT/SGPT) 33 Alkaline Phosphatase 85 Total Protein 8.9 H Albumin 4.8 Globulin 4.10 H Albumin/Globulin Ratio 1.17 Lipase 31 Urine Color LT. YELLOW Urine Clarity CLEAR Urine pH 7.0 Urine Specific [place] 1.015 Urine Ketones 3+ H Urine Nitrite NEGATIVE Urine Bilirubin 1+ H Urine Ictotest NEGATIVE Urine Urobilinogen 0.2 E.U./dL Urine Leukocyte Esterase 1+ H Urine Microscopic RBC NONE SEEN Urine Microscopic WBC 10-25 Urine Epithelial Cells FEW Urine Bacteria FEW Urine Mucus FEW Urine Hemoglobin NEGATIVE Urine Glucose NEGATIVE Urine Total Protein 1+ H Bedside Urine pH (LAB) 7.0 Bedside Urine Protein (LAB) 1+ H Bedside Urine Glucose (UA) Negative Bedside Urine Ketones (LAB) 4+ H Bedside Urine Blood Negative Bedside Urine Nitrite (LAB) Negative Bedside Urine Leukocyte Esterase (L 1+ H MINDY MAGANA MD February 04, 2017 20:29
[2017-02-05 07:27] VITALS: BP 130/60; RESP 16
[2017-02-05] MEDS: HYDROCODONE/APAP (5/325) TAB PO PRN ×2 (07:30→19:16)
[2017-02-05] MEDS ORDERED: POTASSIUM CHLORIDE (SR) 20 MEQ TAB PO STA ×2 (10:25→11:56)
--- NOTE | 2017-02-05 11:46 | PN ---
Date/Time of Note Date/Time of Note DATE: 02/05/17 TIME: 11:46 Assessment/Plan Lines/Catheters IV Catheter Type (from [facility]): Saline Lock Urinary Cath still in place: No Exam/Review of Systems Vital Signs Vitals Vital Signs Date Time Temp Pulse Resp B/P Pulse Ox O2 Delivery O2 Flow Rate FiO2 02/05/17 07:27 98.2 56 16 130/60 100 02/04/17 16:01 Room Air Intake and Output 02/04/17 02/04/17 02/05/17 14:59 22:59 06:59 Intake Total 2080 ml 1300 ml 400 ml Balance 2080 ml 1300 ml 400 ml Results Result Diagram: 02/05/17 0502/05/17520 Results 24 hrs Laboratory Tests Test 02/04/17 12:45 02/04/17 12:54 02/05/17 05:21 Urine Color LT. YELLOW Urine Clarity CLEAR Urine pH 7.0 Urine Specific [place] 1.015 Urine Ketones 3+ H Urine Nitrite NEGATIVE Urine Bilirubin 1+ H Urine Ictotest NEGATIVE Urine Urobilinogen 0.2 E.U./dL Urine Leukocyte Esterase 1+ H Urine Microscopic RBC NONE SEEN Urine Microscopic WBC 10-25 Urine Epithelial Cells FEW Urine Bacteria FEW Urine Mucus FEW Urine Hemoglobin NEGATIVE Urine Glucose NEGATIVE Urine Total Protein 1+ H Bedside Urine pH (LAB) 7.0 Bedside Urine Protein (LAB) 1+ H Bedside Urine Glucose (UA) Negative Bedside Urine Ketones (LAB) 4+ H Bedside Urine Blood Negative Bedside Urine Nitrite (LAB) Negative Bedside Urine Leukocyte Esterase (L 1+ H White Blood Count 10.8 # Red Blood Count 3.79 #L Hemoglobin 11.4 #L Hematocrit 34.1 L Mean Corpuscular Volume 90.0 Mean Corpuscular Hemoglobin 30.1 Mean Corpuscular Hemoglobin Concent 33.4 Red Cell Distribution Width 13.8 Platelet Count 201 # Mean Platelet Volume 9.9 Neutrophils % 75.3 Lymphocytes % 17.1 Monocytes % 5.7 Eosinophils % 0.8 Basophils % 0.5 Nucleated Red Blood Cells % 0.0 Neutrophils # 8.2 H Lymphocytes # 1.9 Monocytes # 0.6 Eosinophils # 0.1 Basophils # 0.1 Nucleated Red Blood Cells # 0.0 Sodium Level 133 L Potassium Level 3.0 L Chloride Level 101 # Carbon Dioxide Level 21 Anion Gap 14 Blood Urea Nitrogen 6 L Creatinine 0.49 Glucose Level 70 # Calcium Level 8.2 L Phosphorus Level 2.8 Magnesium Level 1.7 Total Bilirubin 0.5 Direct Bilirubin 0.00 Indirect Bilirubin 0.5 Aspartate Amino Transf (AST/SGOT) 18 Alanine Aminotransferase (ALT/SGPT) 26 Alkaline Phosphatase 51 Total Protein 5.9 #L Albumin 3.0 #L Globulin 2.90 Albumin/Globulin Ratio 1.03 Medications Medications Current Medications Acetaminophen/ Hydrocodone Bitart ([place] (5/325)) 1 tab Q6H PRN PO FOR MILD TO MODERATE PAIN Last administered on 02/05/17 07:30; Admin Dose 1 TAB; Start 02/04 at 20:30 Ondansetron HCl (Zofran Inj) 4 mg Q6H PRN IV NAUSEA AND/OR VOMITING; Start 02/04 at 20:30 Acetaminophen (Tylenol Tab) 650 mg Q6H PRN PO PAIN AND OR ELEVATED TEMP; Start 02/04/17 at 20:30 Morphine Sulfate 2 mg 2 mg Q4H PRN IV FOR SEVERE PAIN Last administered on 02/05 11:40; Admin Dose 2 MG; Start 02/04/17 at 21:00 Ceftriaxone Sodium (Rocephin) 50 ml @ 100 mls/hr Q24H IVPB ; Start 02/05/17 at 14:00 DANNY MARTIN MD February 05, 2017 11:46
--- NOTE | 2017-02-05 11:53 | PN ---
Date/Time of Note Date/Time of Note DATE: 02/05/17 TIME: 11:47 Assessment/Plan VTE Prophylaxis VTE Prophylaxis Intervention: ambulation Lines/Catheters IV C[facility]ter Type (from [facility]): Saline Lock Urinary Cath still in place: No Assessment/Plan Chief Complaint/Hosp Course 21yo G1 at 15+5 admitted for N/V, concern for hyperemesis and presumed pyelonephritis in the setting of leukocytosis, leuks and WBCs on UA and flank pain. 1)N/V: Now resolved. Will give 1L D5 LR to clear ketones noted on admission. K repletion prn. 2)Pyelonephritis: Leukocytosis downtrending. Pt remains afebrile. Tachycardia has improved. Prelim UCx neg. However, will continue tx with Rocephin for now. Await final UCx results. Bilateral flank pain not clearly CVAT and in the setting of muscle tenderness generally, may be related to larger picture rather than infection. 3)Back Pain: Unclear etiology although likely musculoskeletal. Pain meds, warm compresses and will consult PT. Plan d/w pt and patient's nurse. Questions answered to patient's satisfaction. Problems: Subjective 24 Hr Interval Summary Free Text/Dictation Pt doing fairly well this AM. Reports 6/10 back pain which is somewhat improved this AM. Took 2 doses of Morphine last night and [place] this AM. Ambulating w/o difficulty. Jonatan POs w/o N/V. Denies abdominal pain. Exam/Review of Systems Vital Signs Vitals Vital Signs Date Time Temp Pulse Resp B/P Pulse Ox O2 Delivery O2 Flow Rate FiO2 02/05/17 07:27 98.2 56 16 130/60 100 02/04/17 16:01 Room Air Intake and Output 02/04/17 02/04/17 02/05/17 14:59 22:59 06:59 Intake Total 2080 ml 1300 ml 400 ml Balance 2080 ml 1300 ml 400 ml Exam Constitutional: alert, oriented Eyes: nl conjunctiva Neck: supple Respiratory: clear to auscultation Cardiovascular: regular rate and rhythm Gastrointestinal: bowel sounds, non-tender, other (bilateral flank TTP), soft Musculoskeletal: other (TTP along spine from base of neck to sacrum) Extremities: No calf tenderness, No edema Results Result Diagram: 5/10/17 0521 5/10/17 0521 Results 24 hrs Laboratory Tests Test 02/04/17 12:45 02/04/17 12:54 02/05/17 05:21 Urine Color LT. YELLOW Urine Clarity CLEAR Urine pH 7.0 Urine Specific [place] 1.015 Urine Ketones 3+ H Urine Nitrite NEGATIVE Urine Bilirubin 1+ H Urine Ictotest NEGATIVE Urine Urobilinogen 0.2 E.U./dL Urine Leukocyte Esterase 1+ H Urine Microscopic RBC NONE SEEN Urine Microscopic WBC 10-25 Urine Epithelial Cells FEW Urine Bacteria FEW Urine Mucus FEW Urine Hemoglobin NEGATIVE Urine Glucose NEGATIVE Urine Total Protein 1+ H Bedside Urine pH (LAB) 7.0 Bedside Urine Protein (LAB) 1+ H Bedside Urine Glucose (UA) Negative Bedside Urine Ketones (LAB) 4+ H Bedside Urine Blood Negative Bedside Urine Nitrite (LAB) Negative Bedside Urine Leukocyte Esterase (L 1+ H White Blood Count 10.8 # Red Blood Count 3.79 #L Hemoglobin 11.4 #L Hematocrit 34.1 L Mean Corpuscular Volume 90.0 Mean Corpuscular Hemoglobin 30.1 Mean Corpuscular Hemoglobin Concent 33.4 Red Cell Distribution Width 13.8 Platelet Count 201 # Mean Platelet Volume 9.9 Neutrophils % 75.3 Lymphocytes % 17.1 Monocytes % 5.7 Eosinophils % 0.8 Basophils % 0.5 Nucleated Red Blood Cells % 0.0 Neutrophils # 8.2 H Lymphocytes # 1.9 Monocytes # 0.6 Eosinophils # 0.1 Basophils # 0.1 Nucleated Red Blood Cells # 0.0 Sodium Level 133 L Potassium Level 3.0 L Chloride Level 101 # Carbon Dioxide Level 21 Anion Gap 14 Blood Urea Nitrogen 6 L Creatinine 0.49 Glucose Level 70 # Calcium Level 8.2 L Phosphorus Level 2.8 Magnesium Level 1.7 Total Bilirubin 0.5 Direct Bilirubin 0.00 Indirect Bilirubin 0.5 Aspartate Amino Transf (AST/SGOT) 18 Alanine Aminotransferase (ALT/SGPT) 26 Alkaline Phosphatase 51 Total Protein 5.9 #L Albumin 3.0 #L Globulin 2.90 Albumin/Globulin Ratio 1.03 Medications Medications Current Medications Acetaminophen/ Hydrocodone Bitart ([place] (5/325)) 1 tab Q6H PRN PO FOR MILD TO MODERATE PAIN Last administered on 02/05/17t 07:30; Admin Dose 1 TAB; Start 02/04 at 20:30 Ondansetron HCl (Zofran Inj) 4 mg Q6H PRN IV NAUSEA AND/OR VOMITING; Start 02/04 at 20:30 Acetaminophen (Tylenol Tab) 650 mg Q6H PRN PO PAIN AND OR ELEVATED TEMP; Start 02/04/17 at 20:30 Morphine Sulfate 2 mg 2 mg Q4H PRN IV FOR SEVERE PAIN Last administered on 02/05t 11:40; Admin Dose 2 MG; Start 02/04/17 at 21:00 Ceftriaxone Sodium (Rocephin) 50 ml @ 100 mls/hr Q24H IVPB ; Start 02/05/17 at 14:00 DANNY MARTIN MD February 05, 2017 11:53
[2017-02-05] MEDS: CEFTRIAXONE 1 GM/50 ML (PMX) 50 ML IVPB SCH ×2 (14:42→16:56)
[2017-02-05] MEDS: DEXTROSE 5%-LR 1,000 ML IV SCH ×2 (16:02→23:35)
--- NOTE | 2017-02-05 16:16 | PN ---
Date/Time of Note Date/Time of Note DATE: 02/05/17 TIME: 16:11 Assessment/Plan VTE Prophylaxis VTE Prophylaxis Intervention: ambulation Lines/Catheters IV [facility] (from [facility] Saline Lock Urinary Cath still in place: No Assessment/Plan Chief Complaint/Hosp Course Assessment and plan 1. Pyelonephritis. Continue on antibiotics. Await for clinical improvement. Follow-up on urine culture. Continue IV hydration 2. Current . [employer]EC[employer] following. Continue recommendations 3. Back pain secondary to #1. Continue with analgesics as needed. Disposition and plan: Continue antibiotics per follow-up on urine culture. Antipyretics as needed for fever. Discharge when medically stable and cleared by consultants Discussed plan of care with Dr. Prieto Problems: Subjective 24 Hr Interval Summary Free Text/Dictation Reports still having some right back flank pain Exam/Review of Systems Vital Signs Vitals Vital Signs Date Time Temp Pulse Resp B/P Pulse Ox O2 Delivery O2 Flow Rate FiO2 02/05/17 07:27 98.2 56 16 130/60 100 02/04/17 16:01 Room Air Intake and Output 02/04/17 02/04/17 02/05/17 14:59 22:59 06:59 Intake Total 2080 ml 1300 ml 400 ml Balance 2080 ml 1300 ml 400 ml Exam Constitutional: alert, oriented Psych: nl mood/affect Head: normocephalic Eyes: nl conjunctiva Neck: supple Respiratory: clear to auscultation Cardiovascular: regular rate and rhythm Gastrointestinal: non-tender, soft Musculoskeletal: nl extremities to inspection Neurological: nl mental status, nl speech Skin: nl turgor Results Result Diagram: 02/05/1721 02/05/17 0521 Results 24 hrs Laboratory Tests Test 02/05/17 05:21 White Blood Count 10.8 # Red Blood Count 3.79 #L Hemoglobin 11.4 #L Hematocrit 34.1 L Mean Corpuscular Volume 90.0 Mean Corpuscular Hemoglobin 30.1 Mean Corpuscular Hemoglobin Concent 33.4 Red Cell Distribution Width 13.8 Platelet Count 201 # Mean Platelet Volume 9.9 Neutrophils % 75.3 Lymphocytes % 17.1 Monocytes % 5.7 Eosinophils % 0.8 Basophils % 0.5 Nucleated Red Blood Cells % 0.0 Neutrophils # 8.2 H Lymphocytes # 1.9 Monocytes # 0.6 Eosinophils # 0.1 Basophils # 0.1 Nucleated Red Blood Cells # 0.0 Sodium Level 133 L Potassium Level 3.0 L Chloride Level 101 # Carbon Dioxide Level 21 Anion Gap 14 Blood Urea Nitrogen 6 L Creatinine 0.49 Glucose Level 70 # Calcium Level 8.2 L Phosphorus Level 2.8 Magnesium Level 1.7 Total Bilirubin 0.5 Direct Bilirubin 0.00 Indirect Bilirubin 0.5 Aspartate Amino Transf (AST/SGOT) 18 Alanine Aminotransferase (ALT/SGPT) 26 Alkaline Phosphatase 51 Total Protein 5.9 #L Albumin 3.0 #L Globulin 2.90 Albumin/Globulin Ratio 1.03 Medications Medications Current Medications Acetaminophen/ Hydrocodone Bitart ([place] (5/325)) 1 tab Q6H PRN PO FOR MILD TO MODERATE PAIN Last administered on 02/05/17 07:30; Admin Dose 1 TAB; Start 02/04 at 20:30 Ondansetron HCl (Zofran Inj) 4 mg Q6H PRN IV NAUSEA AND/OR VOMITING; Start 02/04 at 20:30 Acetaminophen 650 mg 650 mg Q6H PRN PO PAIN AND OR ELEVATED TEMP; Start at 20:30 Ceftriaxone Sodium 50 ml @ 100 mls/hr Q24H IVPB Last administered on 14:42; Admin Dose 100 MLS/HR; Start 02/05/17 at 14:00 Dextrose/Lactated Ringer's (D5-Lr) 1,000 ml @ 125 mls/hr Q8H IV Last administered on 02/05/17 16:02; Admin Dose 125 MLS/HR; Start 02/05/17 at 12:00 GEOFF LEW February 05, 2017 16:16
[2017-02-05] MEDS ORDERED: HYDROmorphONE 2 MG/ML SYG IV STA (19:24)
[2017-02-05] MEDS ORDERED: HYDROmorphONE 1 MG/ML SYG IV STA (19:28)
[2017-02-05 19:38] VITALS: BP 118/59; RESP 18
[2017-02-05 19:46] VITALS: BP 131/69; RESP 18
[2017-02-06 06:10] LABS: ADD SCAN DIFF NO
[2017-02-06] MEDS: DEXTROSE 5%-LR 1,000 ML IV SCH (06:12)
[2017-02-06 06:13] LABS: BASOPHILS % 0.4 % (0.0-2.0); EOSINOPHILS # 0.1 10^3/ul (0.0-0.5); EOSINOPHILS % 0.7 % (0.0-7.0); HEMATOCRIT 33.6 % (37.0-47.0); HEMOGLOBIN 11.6 g/dl (12.0-16.0); LYMPHOCYTES # 1.4 10^3/ul (0.8-2.9); LYMPHOCYTES % 19.1 % (15.0-51.0); MEAN CORPUSCULAR HEMOGLOBIN 30.1 pg (29.0-33.0); MEAN CORPUSCULAR HGB CONC 34.5 g/dl (32.0-37.0); MEAN CORPUSCULAR VOLUME 87.3 fl (82.0-101.0); MEAN PLATELET VOLUME 10.1 fl (7.4-10.4); MONOCYTE # 0.5 10^3/ul (0.3-0.9); MONOCYTES % 6.6 % (0.0-11.0); NEUTROPHIL # 5.4 10^3/ul (1.6-7.5); NEUTROPHILS % 72.8 % (39.0-77.0); PLATELET COUNT 200 10^3/UL (140-415); RED BLOOD COUNT 3.85 10^6/ul (4.20-5.40); RED CELL DISTRIBUTION WIDTH 13.7 % (11.5-14.5); WHITE BLOOD COUNT 7.5 10^3/ul (4.8-10.8)
[2017-02-06 06:50] LABS: CHLORIDE 100 mmol/L (97-110); POTASSIUM 3.1 mmol/L (3.5-5.1); SODIUM 133 mmol/L (135-144)
[2017-02-06 06:52] LABS: CREATININE 0.42 mg/dl (0.44-1.00)
[2017-02-06 06:53] LABS: ANION GAP 12 (8-16); CALCIUM 8.6 mg/dl (8.4-10.2); CARBON DIOXIDE 24 mmol/L (21-31); GLUCOSE 100 mg/dl (70-220)
[2017-02-06 07:08] LABS: BLOOD UREA NITROGEN < 2 mg/dl (7-20)
[2017-02-06 08:17] VITALS: BP 120/61; PULSE 56; RESP 16
[2017-02-06] MEDS ORDERED: POTASSIUM CHLORIDE (SR) 20 MEQ TAB PO STA (11:26)
[2017-02-06] MEDS ORDERED: HYDR-3498 PO (11:34)
[2017-02-06] MEDS ORDERED: NITR-58 PO (11:34)
[2017-02-06] MEDS ORDERED: POTA20TA96 PO (11:49)
--- NOTE | 2017-02-06 11:49 | PDOCDIS ---
Discharge Instructions DIAGNOSIS Discharge Diagnosis: 1. Polynephritis 2. Hypokalemia CONDITION Patient Condition: Stable HOME CARE INSTRUCTIONS: Special Diet: REGULAR FOLLOW UP/APPOINTMENTS Appointments 1. Follow-up with your B[facility] SANDER within 1 week GEOFF LEW February 06, 2017 11:49
--- NOTE | 2017-02-06 12:16 | DS ---
Date/Time of Note Date/Time of Note DATE: 02/06/17 TIME: 12:11 Discharge Summary Admission/Discharge Info Admit Date/Time February 04, 2017 at 13:48 Discharge Date/Time Final Diagnosis 1. Pyelonephritis 2. Current 3. Hypokalemia Patient Condition: Stable Consults 1. Dr. Garrett Aquino 2. Dr. Leilani Pandya Hx of Present Illness This is a 21 yo female who is 15 weeks who presented to ER c/o flank and lower back pain. She was seen in ER 5 days ago and was diagnosed with UTI and discharged with abx. She has been seen in ER multiple times and admitted 5 weeks ago for hyperemesis Gravidarum. She has lost over 10lbs because of decreased po intake as a result of vomiting. Patient was actually admitted under OB this morning and a request was placed to medicine for back pain. Patient actually has Pyelonephritis and her flank and lower back pain is most likely a result of pyelo. In ER, she was initially tachy with HR ~ 130. labs showed WBC of 17K and K of 2.7, which was repleted. she also received a dose of Rocephin in ER. . Hospital Course This is a 21-year-old female [address] [facility] due to reports of lower back pain. There is reported she was seen in the ER 5 days prior to his admission with a diagnosis of UTI and discharged with antibiotics. Of note she had been seen in the ER multiple times prior to this admission for hyperemesis gravidarum. She also reportedly had loss of 10 pounds due to decreased oral intake and vomiting. During this admission she was brought here with elevated heart rate and white count of 17,000 with clinical picture of that of pyelonephritis. Patient was placed on appropriate antibiotic with Rocephin. She did have good response. Her white count did downward trend and she remained afebrile. She also reported resolved low back and flank pain. She did have some electrolyte abnormality for which it was repleted. She was also seen by [facility] OPERATOR for further care and management of her . During her course of stay she did improve. The plan of care was discussed with the patient and patient verbalized understanding. On the day of discharge patient was in stable condition Discharge process 40 minutes Discussed plan of care with Home Meds Active Scripts Potassium Chloride* (Potassium Chloride*) 20 Meq Tablet.er, 20 MEQ PO DAILY for 2 Days, TAB.SA Prov:GEOFF ELW 02/06/17 Hydrocodone Bit-Acetaminophen (Hydrocodone Bit-APAP) 5-325MG Tablet, 1 TAB PO Q4 Y for FOR MILD TO MODERATE PAIN, #20 TAB Prov:GEOFF LEW 02/06/17 Nitrofurantoin Monohyd Macrocr* (Macrobid*) 100 Mg Capsr, 100 MG PO BID for 7 Days, CAP Prov:GEOFF LEW 02/06/17 Discontinued Scripts Cephalexin* (Keflex*) 500 Mg Capsule, 500 MG PO QID for 7 Days, CAP Prov:BRENDA THOMPSON PA-C 01/30/17 Metoclopramide* (Reglan*) 10 Mg Tablet, 10 MG PO Q6 Y for NAUSEA AND/OR VOMITING , #20 TAB Prov:BRENDA THOMPSON PA-C 01/30/17 Diphenhydramine Hcl* (Benadryl*) 25 Mg Cap, 25 MG PO Q6, #30 CAP Prov:DA GRADY 01/03/17 Metoclopramide* (Reglan*) 10 Mg Tablet, 10 MG PO Q6 Y for NAUSEA AND/OR VOMITING , #10 TAB Prov:DA GRADY 01/03/17 Acetaminophen* (Tylophen*) 500 Mg Capsule, 1 CAP PO Q6H Y for PAIN AND OR ELEVATED TEMP, #20 CAP Prov:LORENA BARTON PA-C 12/31/16 Ondansetron (Ondansetron Odt) 4 Mg Tab.rapdis, 4 MG PO Q6H Y for NAUSEA AND/OR VOMITING, #10 TAB Prov:LORENA BARTON PA-C 12/31/16 Follow-up Plan CONDITION Patient Condition: Stable HOME CARE INSTRUCTIONS: Special Diet: REGULAR FOLLOW UP/APPOINTMENTS Appointments 1. Follow-up with your PR[facility] PR[facility] OPERATOR within 1 week Pending Labs Laboratory Tests Test 02/06/17 05:50 White Blood Count 7.510^3/ul (4.8-10.8) Red Blood Count 3.8510^6/ul (4.20-5.40) Hemoglobin 11.6g/dl (12.0-16.0) Hematocrit 33.6% (37.0-47.0) Mean Corpuscular Volume 87.3fl (82.0-101.0) Mean Corpuscular Hemoglobin 30.1pg (29.0-33.0) Mean Corpuscular Hemoglobin Concent 34.5g/dl (32.0-37.0) Red Cell Distribution Width 13.7% (11.5-14.5) Platelet Count 79530^3/UL (140-415) Mean Platelet Volume 10.1fl (7.4-10.4) Neutrophils % 72.8% (39.0-77.0) Lymphocytes % 19.1% (15.0-51.0) Monocytes % 6.6% (0.0-11.0) Eosinophils % 0.7% (0.0-7.0) Basophils % 0.4% (0.0-2.0) Nucleated Red Blood Cells % 0.0/100WBC (0.0-0.0) Neutrophils # 5.410^3/ul (1.6-7.5) Lymphocytes # 1.410^3/ul (0.8-2.9) Monocytes # 0.510^3/ul (0.3-0.9) Eosinophils # 0.110^3/ul (0.0-0.5) Basophils # 0.010^3/ul (0.0-0.1) Nucleated Red Blood Cells # 0.010^3/ul (0.0-0.0) Sodium Level 133mmol/L (135-144) Potassium Level 3.1mmol/L (3.5-5.1) Chloride Level 100mmol/L (97-110) Carbon Dioxide Level 24mmol/L (21-31) Anion Gap 12 (8-16) Blood Urea Nitrogen < 2mg/dl (7-20) Creatinine 0.42mg/dl (0.44-1.00) Glucose Level 100mg/dl (70-220) Calcium Level 8.6mg/dl (8.4-10.2) GEOFF LEW February 06, 2017 12:16
[2017-02-06] MEDS ORDERED: POTASSIUM CHLORIDE 20 MEQ in DEXTROSE 5%-LR 1,000 ML IV SCH (13:00)
== END 2017-02-06 13:15 | disposition home or self-care (01) | DRG 781 ==
LOC: E/R 10:37 → MS2 13:48
PROVIDERS: ATTEND Hospitalist
DX: O23.02 Infections of kidney in pregnancy, second trimester (principal); E86.0 Dehydration; O21.1 Hyperemesis gravidarum with metabolic disturbance; Z3A.15 15 weeks gestation of pregnancy; E87.6 Hypokalemia
CPT/HCPCS: 36415; 80048; 80053; 81001; 81003; 83690; 83735; 84100; 85025; 87040; 87086; 96361; 96365; 96366; 96368; 96375; 96376; J0696; J1170; J2270; J2405; J3480; J7030; J7121

== ENCOUNTER 2017-02-23 14:40 | Emergency (ER) | payer OTHER ==
[~2017-02-23] VITALS: Ht 162.6 cm; Wt 72.0 kg
[~2017-02-23 14:40] MED LIST changes: -ACET500C5 PO; -BEN25 PO; -CEPH-443 PO; +HYDR-3498 PO; -METO10TA92 PO; +NITR-58 PO; -ONDA4TAB14 PO; +POTA20TA96 PO
[2017-02-23 14:41] VITALS: Ht 162.6 cm; Wt 72.0 kg
[2017-02-23] MEDS ORDERED: SOD CHLORIDE 0.9% 1,000 ML IV STA (15:02)
[2017-02-23] MEDS ORDERED: ONDANSETRON 4 MG INJ IV STA ×3 (15:02→16:07)
[2017-02-23] MEDS ORDERED: SOD CHLORIDE 0.9% 500 ML IV STA (15:14)
[2017-02-23] MEDS ORDERED: PREN1TAB91 PO (15:17)
[2017-02-23] MEDS ORDERED: PRENAT PO (15:18)
[2017-02-23 15:24] LABS: ADD SCAN DIFF NO
[2017-02-23 15:28] LABS: BASOPHILS % 0.1 % (0.0-2.0); EOSINOPHILS % 0.2 % (0.0-7.0); HEMATOCRIT 35.2 % (37.0-47.0); HEMOGLOBIN 12.3 g/dl (12.0-16.0); LYMPHOCYTES # 1.8 10^3/ul (0.8-2.9); LYMPHOCYTES % 12.3 % (15.0-51.0); MEAN CORPUSCULAR HEMOGLOBIN 30.4 pg (29.0-33.0); MEAN CORPUSCULAR HGB CONC 34.9 g/dl (32.0-37.0); MEAN CORPUSCULAR VOLUME 87.1 fl (82.0-101.0); MEAN PLATELET VOLUME 9.2 fl (7.4-10.4); MONOCYTE # 0.4 10^3/ul (0.3-0.9); MONOCYTES % 2.5 % (0.0-11.0); NEUTROPHIL # 12.3 10^3/ul (1.6-7.5); NEUTROPHILS % 84.4 % (39.0-77.0); PLATELET COUNT 272 10^3/UL (140-415); RED BLOOD COUNT 4.04 10^6/ul (4.20-5.40); WHITE BLOOD COUNT 14.6 10^3/ul (4.8-10.8)
[2017-02-23] MEDS ORDERED: morphine 2 MG INJ IV ONE ×2 (15:30→16:30)
[2017-02-23 15:39] LABS: POTASSIUM 3.7 mmol/L (3.5-5.1)
[2017-02-23 15:40] LABS: CREATININE 0.41 mg/dl (0.44-1.00)
[2017-02-23 15:41] LABS: ALBUMIN/GLOBULIN RATIO 1.08; BILIRUBIN,INDIRECT 0.4 mg/dl (0-1.1); BILIRUBIN,TOTAL 0.4 mg/dl (0.2-1.3); TOTAL PROTEIN 7.7 g/dl (6.1-8.1)
[2017-02-23 15:42] LABS: CALCIUM 9.8 mg/dl (8.4-10.2)
--- NOTE | 2017-02-23 16:26 | RADRPT ---
PROCEDURE: US OB. CLINICAL INDICATION: Abdominal pain. TECHNIQUE: Multiple sonographic images of the pelvis were obtained. Transabdominal imaging only w as performed. COMPARISON: Ultrasound, 01/30/2017. FINDINGS: Cardiac activity is present with 159 beats per minute. Presentation is breech. Measurements were made in order to determine age. The results are as follows: BPD = 18 weeks 1 day HC = 18 weeks 0 days AC = 18 weeks 2-day FL = 18 weeks 2 days The placenta is anterior, with no evidence of previa. Amniotic fluid volume is subjectively within normal limits. IMPRESSION: Single, live intrauterine with estimated age of 18 weeks, 1 days on the basis of thi s examination. No significant abnormality. Anterior placenta without previa or abruption. RPTAT: EE .Ramakrishna Graves MD, Date Time Electronically viewed and signed by .Ramakrishna Graves MD, on 02/23/2017 16:31 .C/
[2017-02-23] MEDS ORDERED: METOCLOPRAMIDE 10 MG INJ IV ONE (16:30)
[2017-02-23 16:59] LABS: ADD UMIC YES; URINE BILIRUBIN (Dip) NEGATIVE (NEGATIVE); URINE BLOOD (Dip) NEGATIVE (NEGATIVE); URINE COLOR LT. YELLOW (YELLOW); URINE GLUCOSE (Dip) NEGATIVE (NEGATIVE); URINE KETONES (Dip) 3+ (NEGATIVE); URINE LEUKOCYTE ESTERASE (Dip) 3+ (NEGATIVE); URINE NITRITE (Dip) NEGATIVE (NEGATIVE); URINE TOTAL PROTEIN (Dip) NEGATIVE (NEGATIVE); URINE UROBILINOGEN (Dip) 0.2 E.U./dL (0.1-1.0)
[2017-02-23 17:17] LABS: BACTERIA,URINE MODERATE; SQUAMOUS EPITHELIAL CELL,UR MANY; URINE RBCS NONE SEEN /HPF (0)
[2017-02-23] MEDS ORDERED: CEFTRIAXONE 1 GM/50 ML (PMX) 50 ML IVPB ONE (17:30)
[2017-02-23 18:12] VITALS: BP 122/83; PULSE 81; RESP 20; TEMP 98.3
[2017-02-23] MEDS ORDERED: TYL500 PO (18:33)
[2017-02-23] MEDS ORDERED: ONDA4TAB11 PO (18:33)
[2017-02-23] MEDS ORDERED: CEPH-443 PO (18:33)
--- NOTE | 2017-02-23 18:43 | ERD ---
ER Documentation Chief Complaint Date/Time DATE: 02/23/17 TIME: 18:36 Chief Complaint pt bib self with c/o ap x 2 days approx 16wks preg HPI This 21-year-old female presents with crampy abdominal pain as well as nausea and states that she is 16 weeks and has had ultrasounds to confirm this. She has increased urinary frequency as well. She denies fevers and chills. Denies diarrhea and vaginal discharge. No vaginal bleeding. ROS All systems reviewed and are negative except as per history of present illness. Medications Home Meds Active Scripts Ondansetron (Zofran Odt) 4 Mg Tab.rapdis, 4 MG PO Q6 for NAUSEA AND/OR VOMITING , #10 Prov:LETICIA LEVINE DO 02/23/17 Cephalexin* (Keflex*) 500 Mg Capsule, 500 MG PO QID for 5 Days, CAP Prov:LETICIA LEVINE DO 02/23/17 Acetaminophen* (Tylenol*) 500 Mg Tab, 500 MG PO Q4H Y for MILD PAIN LEVEL 1-3, # 14 TAB Prov:LETICIA LEVINE DO 02/23/17 Reported Medications Multivit/Min/Fol Ac/Iron/Pren* ( S*) 1 Tab Tab, 1 TAB PO DAILY, TAB 02/23/17 Discontinued Reported Medications Pnv95/Ferrous Fumarate/FA ( Formula Tablet) 1 Each Tablet, 1 EACH PO, TAB 02/23/17 Discontinued Scripts Potassium Chloride* (Potassium Chloride*) 20 Meq Tablet.er, 20 MEQ PO DAILY for 2 Days, TAB.SA Prov:GEOFF LEW 02/06/17 Hydrocodone Bit-Acetaminophen (Hydrocodone Bit-APAP) 5-325MG Tablet, 1 TAB PO Q4 Y for FOR MILD TO MODERATE PAIN, #20 TAB Prov:REGGEOFF RICHARDS 02/06/17 Nitrofurantoin Monohyd Macrocr* (Macrobid*) 100 Mg Capsr, 100 MG PO BID for 7 Days, CAP Prov:SIARGEOFF 02/06/17 Allergies Allergies: Coded Allergies: No Known Allergy (Unverified , 02/23/17) PMhx/Soc History of Surgery: No Anesthesia Reaction: No Hx Neurological Disorder: No Hx Respiratory Disorders: No Hx Cardiac Disorders: No Hx Psychiatric Problems: No Hx Miscellaneous Medical Probl: No Hx Alcohol Use: No Hx Substance Use: No Hx Tobacco Use: No Physical Exam Vitals Vital Signs Date Time Temp Pulse Resp B/P Pulse Ox O2 Delivery O2 Flow Rate FiO2 02/23/17 18:12 98.3 81 20 122/83 98 Room Air 02/23/17 17:00 98.3 96 20 128/85 98 Room Air 02/23/17 14:41 97.3 104 20 132/58 98 Physical Exam Const: [] No acute distress Head: Atraumatic Eyes: Normal Conjunctiva ENT: Normal External Ears, Nose and Mouth. Neck: Full range of motion..~ No meningismus. Resp: Clear to auscultation bilaterally Cardio: Regular rate and rhythm, no murmurs Abd: Soft, non tender, non distended. Normal bowel sounds Skin: No petechiae or rashes Back: No midline or flank tenderness Ext: No cyanosis, or edema Neur: Awake and alert and oriented 3, no focal deficits Psych: Normal Mood and Affect Result Diagram: 02/23/17 1513 02/23/17 1513 Results 24 hrs Laboratory Tests Test 02/23/17 15:00 02/23/17 15:13 02/23/17 16:20 Beta HCG, Quantitative 85509.0mIU/ml White Blood Count 14.610^3/ul Red Blood Count 4.0410^6/ul Hemoglobin 12.3g/dl Hematocrit 35.2% Mean Corpuscular Volume 87.1fl Mean Corpuscular Hemoglobin 30.4pg Mean Corpuscular Hemoglobin Concent 34.9g/dl Red Cell Distribution Width 13.0% Platelet Count 72235^3/UL Mean Platelet Volume 9.2fl Neutrophils % 84.4% Lymphocytes % 12.3% Monocytes % 2.5% Eosinophils % 0.2% Basophils % 0.1% Nucleated Red Blood Cells % 0.0/100WBC Neutrophils # 12.310^3/ul Lymphocytes # 1.810^3/ul Monocytes # 0.410^3/ul Eosinophils # 0.010^3/ul Basophils # 0.010^3/ul Nucleated Red Blood Cells # 0.010^3/ul Sodium Level 136mmol/L Potassium Level 3.7mmol/L Chloride Level 107mmol/L Carbon Dioxide Level 22mmol/L Anion Gap 11 Blood Urea Nitrogen 3mg/dl Creatinine 0.41mg/dl Glucose Level 87mg/dl Calcium Level 9.8mg/dl Total Bilirubin 0.4mg/dl Direct Bilirubin 0.00mg/dl Indirect Bilirubin 0.4mg/dl Aspartate Amino Transf (AST/SGOT) 19IU/L Alanine Aminotransferase (ALT/SGPT) 21IU/L Alkaline Phosphatase 73IU/L Total Protein 7.7g/dl Albumin 4.0g/dl Globulin 3.70g/dl Albumin/Globulin Ratio 1.08 Lipase 140U/L Urine Color LT. YELLOW Urine Clarity CLOUDY Urine pH 7.5 Urine Specific [place] 1.015 Urine Ketones 3+ Urine Nitrite NEGATIVE Urine Bilirubin NEGATIVE Urine Urobilinogen 0.2 E.U./dL Urine Leukocyte Esterase 3+ Urine Microscopic RBC NONE SEEN/HPF Urine Microscopic WBC 25-50/HPF Urine Squamous Epithelial Cells MANY Urine Amorphous Urates MANY Urine Bacteria MODERATE Urine Hemoglobin NEGATIVE Urine Glucose NEGATIVE% Urine Total Protein NEGATIVE Current Medications Medications (Trade) Dose Ordered Sig/Roman Route PRN Reason Start Time Stop Time Status Last Admin Dose Admin Sodium Chloride (NS) 1,000 ml @ 1,000 mls/hr Q1H STAT IV 02/23/17 15:02 02/23/17 16:01 DC 02/23/17 15:19 Ondansetron HCl 4 mg 4 mg ONCE STAT IV 02/23/17 15:02 02/23/17 15:04 DC 02/23/17 15:18 Sodium Chloride (NS) 500 ml @ 500 mls/hr Q1H STAT IV 02/23/17 15:14 02/23/17 16:13 DC 02/23/17 17:50 Ondansetron HCl (Zofran Inj) 4 mg ONCE STAT IV 02/23/17 15:14 02/23/17 15:17 DC 02/23/17 16:18 Morphine Sulfate (morphine) 1 mg ONCE ONCE IV 02/23/17 15:30 02/23/17 15:31 DC 02/23/17 15:28 Metoclopramide HCl (Reglan) 10 mg ONCE ONCE IV 02/23/17 16:30 02/23/17 16:31 DC 02/23/17 16:19 Ondansetron HCl (Zofran Inj) 4 mg ONCE STAT IV 02/23/17 16:07 02/23/17 16:08 DC 02/23/17 16:20 Morphine Sulfate 1 mg 1 mg ONCE ONCE IV 02/23/17 16:30 02/23/17 16:31 DC 02/23/17 16:19 Ceftriaxone Sodium (Rocephin) 50 ml @ 100 mls/hr ONCE ONCE IVPB 02/23/17 17:30 02/23/17 17:59 DC 02/23/17 17:50 Procedures/MDM Urinary tract infection in second trimester female. She was given 2 mg of morphine and Zofran in the emergency room which greatly reduced her nausea and pain. She is also given a gram of Keflex as well as a liter of normal saline. Ultrasound shows a healthy intrauterine with good heartbeat. Patient is feeling better with a discharge with primary care follow- up in the next 2 3 days as well as return precautions the ER for any fevers uncontrollable pain or inability to take p.o. discharging with Keflex and Tylenol as well as Zofran ODT Ultrasound interpretation: Live intrauterine of approximately 18 weeks with a heart rate of 159. Departure Diagnosis: Primary Impression: Abdominal pain during Additional Impression: UTI (urinary tract infection) Condition: Stable Patient Instructions: Abdominal Pain, Understanding Urinary Tract Infections ( UTIs) Additional Instructions: Call your primary care doctor TOMORROW for an appointment during the next 2-3 days.See the doctor sooner or return here if your condition worsens before your appointment time. LETICIA LEVINE DO February 23, 2017 18:43
== END 2017-02-23 18:46 | disposition home or self-care (01) ==
LOC: E/R 14:40
DX: O26.892 Other specified pregnancy related conditions, second trimester (principal); R40.2252 Coma scale, best verbal response, oriented, at arrival to emergency department; R10.9 Unspecified abdominal pain; O23.42 Unspecified infection of urinary tract in pregnancy, second trimester; R40.2142 Coma scale, eyes open, spontaneous, at arrival to emergency department; R40.2362 Coma scale, best motor response, obeys commands, at arrival to emergency department; Z3A.18 18 weeks gestation of pregnancy
CPT/HCPCS: 36415; 76805; 80053; 81001; 83690; 84702; 85025; 87086; 96374; 96375; 96376; J0696; J2270; J2405; J2765; J7030; J7040; Z7502

== ENCOUNTER 2017-02-25 09:27 | Emergency (ER) | payer OTHER ==
[~2017-02-25] VITALS: Ht 157.5 cm; Wt 89.0 kg
[~2017-02-25 09:27] MED LIST changes: +CEPH-443 PO; -HYDR-3498 PO; -NITR-58 PO; +ONDA4TAB11 PO; -POTA20TA96 PO; +PRENAT PO; +TYL500 PO
[2017-02-25 09:30] VITALS: Ht 157.5 cm; Wt 89.0 kg
[2017-02-25] MEDS ORDERED: ONDANSETRON 4 MG INJ IV STA (09:36)
[2017-02-25] MEDS ORDERED: METOCLOPRAMIDE 10 MG INJ IV STA (09:36)
[2017-02-25] MEDS ORDERED: morphine 4 MG/ML VIAL IV STA (09:36)
[2017-02-25] MEDS ORDERED: SOD CHLORIDE 0.9% 1,000 ML IV STA (09:36)
[2017-02-25 10:04] LABS: ADD SCAN DIFF NO
[2017-02-25 10:13] LABS: BASOPHIL # 0.1 10^3/ul (0.0-0.1); BASOPHILS % 0.4 % (0.0-2.0); EOSINOPHILS % 0.1 % (0.0-7.0); HEMATOCRIT 39.6 % (37.0-47.0); HEMOGLOBIN 13.8 g/dl (12.0-16.0); LYMPHOCYTES % 12.5 % (15.0-51.0); MEAN CORPUSCULAR HEMOGLOBIN 30.4 pg (29.0-33.0); MEAN CORPUSCULAR HGB CONC 34.8 g/dl (32.0-37.0); MEAN CORPUSCULAR VOLUME 87.2 fl (82.0-101.0); MEAN PLATELET VOLUME 9.5 fl (7.4-10.4); MONOCYTE # 0.7 10^3/ul (0.3-0.9); NEUTROPHIL # 13.3 10^3/ul (1.6-7.5); NEUTROPHILS % 82.6 % (39.0-77.0); PLATELET COUNT 306 10^3/UL (140-415); RED BLOOD COUNT 4.54 10^6/ul (4.20-5.40); RED CELL DISTRIBUTION WIDTH 13.1 % (11.5-14.5); WHITE BLOOD COUNT 16.1 10^3/ul (4.8-10.8)
[2017-02-25 10:24] LABS: ALBUMIN 4.5 g/dl (3.3-4.9); ALBUMIN/GLOBULIN RATIO 1.12; BILIRUBIN,INDIRECT 0.4 mg/dl (0-1.1); BILIRUBIN,TOTAL 0.4 mg/dl (0.2-1.3); CALCIUM 9.9 mg/dl (8.4-10.2); CREATININE 0.42 mg/dl (0.44-1.00); POTASSIUM 3.2 mmol/L (3.5-5.1); TOTAL PROTEIN 8.5 g/dl (6.1-8.1)
[2017-02-25 11:30] LABS: ADD UMIC YES; URINE BILIRUBIN (Dip) 1+ (NEGATIVE); URINE BLOOD (Dip) TRACE (NEGATIVE); URINE COLOR LT. YELLOW (YELLOW); URINE GLUCOSE (Dip) NEGATIVE (NEGATIVE); URINE KETONES (Dip) 3+ (NEGATIVE); URINE LEUKOCYTE ESTERASE (Dip) 2+ (NEGATIVE); URINE NITRITE (Dip) NEGATIVE (NEGATIVE); URINE TOTAL PROTEIN (Dip) TRACE (NEGATIVE); URINE UROBILINOGEN (Dip) 0.2 E.U./dL (0.1-1.0)
[2017-02-25 11:38] VITALS: BP 98/57; PULSE 73; RESP 18
[2017-02-25 11:57] LABS: ICTOTEST NEGATIVE (NEGATIVE)
[2017-02-25 11:58] LABS: BACTERIA,URINE MODERATE; MUCUS,URINE FEW; TRICHOMONAS,URINE MODERATE
--- NOTE | 2017-02-25 12:00 | ERD ---
ER Documentation Chief Complaint Date/Time DATE: 02/25/17 TIME: 11:59 Chief Complaint ap , 18 week pegnant HPI Very pleasant 21-year-old female complains of abdominal cramping and vomiting. She is 18 weeks . 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 Patient denies any fevers chills vaginal bleeding vaginal discharge or dysuria ROS All systems reviewed and are negative except as per history of present illness. Medications Home Meds Active Scripts Ondansetron (Zofran Odt) 4 Mg Tab.rapdis, 4 MG PO Q6 for NAUSEA AND/OR VOMITING , #10 Prov:LETICIA LEVINE DO 02/23/17 Cephalexin* (Keflex*) 500 Mg Capsule, 500 MG PO QID for 5 Days, CAP Prov:LETICIA LEVINE DO 02/23/17 Acetaminophen* (Tylenol*) 500 Mg Tab, 500 MG PO Q4H Y for MILD PAIN LEVEL 1-3, # 14 TAB Prov:LETICIA LEVINE DO 02/23/17 Reported Medications Multivit/Min/Fol Ac/Iron/Pren* ( S*) 1 Tab Tab, 1 TAB PO DAILY, TAB 02/23/17 Discontinued Reported Medications Pnv95/Ferrous Fumarate/FA ( Formula Tablet) 1 Each Tablet, 1 EACH PO, TAB 02/23/17 Discontinued Scripts Potassium Chloride* (Potassium Chloride*) 20 Meq Tablet.er, 20 MEQ PO DAILY for 2 Days, TAB.SA Prov:GEOFF LEW 02/06/17 Hydrocodone Bit-Acetaminophen (Hydrocodone Bit-APAP) 5-325MG Tablet, 1 TAB PO Q4 Y for FOR MILD TO MODERATE PAIN, #20 TAB Prov:REGSETHRGEOFF 02/06/17 Nitrofurantoin Monohyd Macrocr* (Macrobid*) 100 Mg Capsr, 100 MG PO BID for 7 Days, CAP Prov:REGSETHRGEOFF 02/06/17 Allergies Allergies: Coded Allergies: No Known Allergy (Unverified , 02/23/17) PMhx/Soc History of Surgery: No Anesthesia Reaction: No Hx Neurological Disorder: No Hx Respiratory Disorders: No Hx Cardiac Disorders: No Hx Psychiatric Problems: No Hx Miscellaneous Medical Probl: No Hx Alcohol Use: No Hx Substance Use: No Hx Tobacco Use: No Smoking Status: Former smoker Physical Exam Vitals Vital Signs Date Time Temp Pulse Resp B/P Pulse Ox O2 Delivery O2 Flow Rate FiO2 02/25/17 11:38 73 18 98/57 99 Room Air 02/25/17 09:30 98.2 100 20 119/74 99 Physical Exam Const: [] Head: Atraumatic Eyes: Normal Conjunctiva ENT: Normal External Ears, Nose and Mouth. Neck: Full range of motion..~ No meningismus. Resp: Clear to auscultation bilaterally Cardio: Regular rate and rhythm, no murmurs Abd: Soft, non tender, non distended. Normal bowel sounds Skin: No petechiae or rashes Back: No midline or flank tenderness Ext: No cyanosis, or edema Neur: Awake and alert Psych: Normal Mood and Affect Result Diagram: 02/25/1750 02/25/17 0950 Results 24 hrs Laboratory Tests Test 02/25/17 09:50 02/25/17 10:45 White Blood Count 16.110^3/ul Red Blood Count 4.5410^6/ul Hemoglobin 13.8g/dl Hematocrit 39.6% Mean Corpuscular Volume 87.2fl Mean Corpuscular Hemoglobin 30.4pg Mean Corpuscular Hemoglobin Concent 34.8g/dl Red Cell Distribution Width 13.1% Platelet Count 88938^3/UL Mean Platelet Volume 9.5fl Neutrophils % 82.6% Lymphocytes % 12.5% Monocytes % 4.0% Eosinophils % 0.1% Basophils % 0.4% Nucleated Red Blood Cells % 0.0/100WBC Neutrophils # 13.310^3/ul Lymphocytes # 2.010^3/ul Monocytes # 0.710^3/ul Eosinophils # 0.010^3/ul Basophils # 0.110^3/ul Nucleated Red Blood Cells # 0.010^3/ul Sodium Level 134mmol/L Potassium Level 3.2mmol/L Chloride Level 101mmol/L Carbon Dioxide Level 23mmol/L Anion Gap 13 Blood Urea Nitrogen 6mg/dl Creatinine 0.42mg/dl Glucose Level 98mg/dl Calcium Level 9.9mg/dl Total Bilirubin 0.4mg/dl Direct Bilirubin 0.00mg/dl Indirect Bilirubin 0.4mg/dl Aspartate Amino Transf (AST/SGOT) 22IU/L Alanine Aminotransferase (ALT/SGPT) 24IU/L Alkaline Phosphatase 76IU/L Total Protein 8.5g/dl Albumin 4.5g/dl Globulin 4.00g/dl Albumin/Globulin Ratio 1.12 Lipase 50U/L Urine Color LT. YELLOW Urine Clarity SLIGHTLY CLOUDY Urine pH 6.0 Urine Specific [place] 1.025 Urine Ketones 3+ Urine Nitrite NEGATIVE Urine Bilirubin 1+ Urine Ictotest NEGATIVE Urine Urobilinogen 0.2 E.U./dL Urine Leukocyte Esterase 2+ Urine Microscopic RBC 2-5/HPF Urine Microscopic WBC >200/HPF Urine Epithelial Cells MODERATE Urine Bacteria MODERATE Urine Mucus FEW Urine Trichomonas MODERATE Urine Hemoglobin TRACE Urine Glucose NEGATIVE% Urine Total Protein TRACE Current Medications Medications (Trade) Dose Ordered Sig/Roman Route PRN Reason Start Time Stop Time Status Last Admin Dose Admin Sodium Chloride (NS) 1,000 ml @ 1,000 mls/hr Q1H STAT IV 02/25/17 09:36 02/25/17 10:35 DC 02/25/17 09:57 Morphine Sulfate (morphine) 4 mg ONCE STAT IV 02/25/17 09:36 02/25/17 09:38 DC 02/25/17 09:57 Ondansetron HCl (Zofran Inj) 4 mg ONCE STAT IV 02/25/17 09:36 02/25/17 09:38 DC 02/25/17 09:57 Metoclopramide HCl (Reglan) 10 mg ONCE STAT IV 02/25/17 09:36 02/25/17 09:38 DC 02/25/17 09:54 Procedures/MDM Medical decision-makin-year-old female who comes in with hyperemesis gravidarum. Her symptoms resolved in the ER. To be discharged home with Phenergan suppositories along with Tylenol suppositories for pain. Departure Diagnosis: Primary Impression: Hyperemesis gravidarum Condition: Stable SHANNON LYMAN February 25, 2017 12:00
[2017-02-25] MEDS ORDERED: PROM25TA14 PO (12:14)
[2017-02-25] MEDS ORDERED: PROM25TA14 PR (12:14)
== END 2017-02-25 12:27 | disposition home or self-care (01) ==
LOC: E/R 09:27
DX: O21.0 Mild hyperemesis gravidarum (principal); R40.2142 Coma scale, eyes open, spontaneous, at arrival to emergency department; R40.2252 Coma scale, best verbal response, oriented, at arrival to emergency department; R10.9 Unspecified abdominal pain; Z87.891 Personal history of nicotine dependence; Z3A.18 18 weeks gestation of pregnancy
CPT/HCPCS: 36415; 80053; 81001; 83690; 85025; 87086; 96361; 96374; 96375; J2270; J2405; J2765; J7030; Z7502; Z7610

== ENCOUNTER 2017-02-27 07:27 | Inpatient (IN) | payer OTHER ==
[~2017-02-27] VITALS: Ht 167.6 cm; Wt 72.0 kg
[~2017-02-27 07:27] MED LIST changes: +PROM25TA14 PO; +PROM25TA14 PR
[2017-02-27] MEDS ORDERED: ONDANSETRON 4 MG INJ IV STA (07:48)
[2017-02-27] MEDS ORDERED: SOD CHLORIDE 0.9% 1,000 ML IV STA (07:48)
[2017-02-27] MEDS ORDERED: morphine 2 MG INJ IV ONE (08:00)
[2017-02-27 08:25] LABS: ADD SCAN DIFF NO
[2017-02-27 08:31] LABS: BASOPHILS % 0.2 % (0.0-2.0); EOSINOPHILS % 0.1 % (0.0-7.0); HEMATOCRIT 36.2 % (37.0-47.0); LYMPHOCYTES # 1.2 10^3/ul (0.8-2.9); LYMPHOCYTES % 6.5 % (15.0-51.0); MEAN CORPUSCULAR HEMOGLOBIN 30.9 pg (29.0-33.0); MEAN CORPUSCULAR HGB CONC 35.9 g/dl (32.0-37.0); MEAN PLATELET VOLUME 9.8 fl (7.4-10.4); MONOCYTE # 0.7 10^3/ul (0.3-0.9); MONOCYTES % 3.9 % (0.0-11.0); NEUTROPHIL # 16.1 10^3/ul (1.6-7.5); NEUTROPHILS % 88.7 % (39.0-77.0); PLATELET COUNT 282 10^3/UL (140-415); RED BLOOD COUNT 4.21 10^6/ul (4.20-5.40); RED CELL DISTRIBUTION WIDTH 12.8 % (11.5-14.5); WHITE BLOOD COUNT 18.2 10^3/ul (4.8-10.8)
--- NOTE | 2017-02-27 08:36 | ERD ---
ER Documentation Chief Complaint Date/Time DATE: 02/27/17 TIME: 08:34 Chief Complaint BACK PAIN X4 DAYS, PT 18 WKS PG, VOMITING HPI Patient is a 21-year-old female who is with a last normal menstrual period of 10/18/16 who presents to the ED with ongoing vomiting and back pain. She states that she has had nonbloody nonbilious emesis. She states that she has been here multiple times for similar complaints. Today she states that her back pain is a 9 out of 10. States that the pain is on her lower back in no specific area. Denies bowel or bladder incontinence. She states that she has tried Zofran, Phenergan and promethazine with no relief. She states that she has mild pelvic pain and some vaginal spotting. Denies fever or chills. Denies chest pain or cough or shortness of breath. Patient has been here 8 times at [facility] in the last 2 months for similar complaints. ROS All systems reviewed and are negative except as per history of present illness. Medications Home Meds Active Scripts Promethazine Hcl* (Phenergan*) 25 Mg Tablet, 25 MG MD Q6H Y for NAUSEA, #10 TAB Prov:SHANNON LYMAN S. 02/25/17 Promethazine Hcl* (Phenergan*) 25 Mg Tablet, 25 MG PO Q6 Y for NAUSEA AND/OR VOMITING, #10 TAB Prov:SHANNON LYMAN S. 02/25/17 Ondansetron (Zofran Odt) 4 Mg Tab.rapdis, 4 MG PO Q6 for NAUSEA AND/OR VOMITING , #10 Prov:LETICIA LEVINE DO 02/23/17 Cephalexin* (Keflex*) 500 Mg Capsule, 500 MG PO QID for 5 Days, CAP Prov:LETICIA LEVINE DO 02/23/17 Acetaminophen* (Tylenol*) 500 Mg Tab, 500 MG PO Q4H Y for MILD PAIN LEVEL 1-3, # 14 TAB Prov:LETICIA LEVINE DO 02/23/17 Reported Medications Multivit/Min/Fol Ac/Iron/Pren* ( S*) 1 Tab Tab, 1 TAB PO DAILY, TAB 02/23/17 Discontinued Reported Medications Pnv95/Ferrous Fumarate/FA ( Formula Tablet) 1 Each Tablet, 1 EACH PO, TAB 02/23/17 Discontinued Scripts Potassium Chloride* (Potassium Chloride*) 20 Meq Tablet.er, 20 MEQ PO DAILY for 2 Days, TAB.SA Prov:GEOFF LEW 02/06/17 Hydrocodone Bit-Acetaminophen (Hydrocodone Bit-APAP) 5-325MG Tablet, 1 TAB PO Q4 Y for FOR MILD TO MODERATE PAIN, #20 TAB Prov:GEOFF LEW 02/06/17 Nitrofurantoin Monohyd Macrocr* (Macrobid*) 100 Mg Capsr, 100 MG PO BID for 7 Days, CAP Prov:ISARGEOFF 02/06/17 Allergies Allergies: Coded Allergies: No Known Allergy (Unverified , 02/27/17) PMhx/Soc History of Surgery: No Anesthesia Reaction: No Hx Neurological Disorder: No Hx Respiratory Disorders: No Hx Cardiac Disorders: No Hx Psychiatric Problems: No Hx Miscellaneous Medical Probl: No Hx Alcohol Use: No Hx Substance Use: No Hx Tobacco Use: No Smoking Status: Never smoker Physical Exam Vitals Vital Signs Date Time Temp Pulse Resp B/P Pulse Ox O2 Delivery O2 Flow Rate FiO2 02/27/17 11:00 97.6 89 18 128/76 98 Room Air 02/27/17 07:32 97.6 103 18 138/92 98 Physical Exam GENERAL: Well-developed, well-nourished femlae. Appears in mild distress HEAD: Normocephalic, atraumatic. EYES: Pupils are equally reactive bilaterally. EOMs grossly intact. No conjunctival erythema. ENT: Moist mucous membranes. No uvula deviation. No kissing tonsils. No exudates. NECK: Supple. No lymphadenopathy or thyromegaly. No meningismus. negative kernig. negative brudinski. LUNG: Clear to auscultation bilaterally. No rhonchi, wheezing, rales or coarse breath sounds. HEART: Regular rate and rhythm. No murmurs, rubs or gallops. ABDOMEN: No scars, ecchymosis or rashes noted. Soft, nontender, and nondistended. Positive bowel sounds in all four quadrants. No rebound tenderness , no guarding. (-) McBurneys point tenderness. No CVA tenderness. BACK: No midline tenderness. generalized tenderness on back. Extremities: Equal pulses bilaterally. No peripheral clubbing, cyanosis or edema. No unilateral leg swelling. NEUROLOGIC: Alert and oriented. Moving all four extremities. 5/5 strength in all extremities. Normal speech. Steady gait. SKIN: Normal color. Warm and dry. No rashes or lesions. Capillary refill < 2 seconds Result Diagram: 02/27/17 0800 02/27/17 0800 Results 24 hrs Laboratory Tests Test 02/27/17 08:00 02/27/17 09:50 White Blood Count 18.210^3/ul Red Blood Count 4.2110^6/ul Hemoglobin 13.0g/dl Hematocrit 36.2% Mean Corpuscular Volume 86.0fl Mean Corpuscular Hemoglobin 30.9pg Mean Corpuscular Hemoglobin Concent 35.9g/dl Red Cell Distribution Width 12.8% Platelet Count 71666^3/UL Mean Platelet Volume 9.8fl Neutrophils % 88.7% Lymphocytes % 6.5% Monocytes % 3.9% Eosinophils % 0.1% Basophils % 0.2% Nucleated Red Blood Cells % 0.0/100WBC Neutrophils # 16.110^3/ul Lymphocytes # 1.210^3/ul Monocytes # 0.710^3/ul Eosinophils # 0.010^3/ul Basophils # 0.010^3/ul Nucleated Red Blood Cells # 0.010^3/ul Sodium Level 134mmol/L Potassium Level 2.8mmol/L Chloride Level 100mmol/L Carbon Dioxide Level 22mmol/L Anion Gap 15 Blood Urea Nitrogen 4mg/dl Creatinine 0.40mg/dl Glucose Level 98mg/dl Calcium Level 9.7mg/dl Total Bilirubin 0.6mg/dl Direct Bilirubin 0.00mg/dl Indirect Bilirubin 0.6mg/dl Aspartate Amino Transf (AST/SGOT) 21IU/L Alanine Aminotransferase (ALT/SGPT) 23IU/L Alkaline Phosphatase 73IU/L Total Protein 8.0g/dl Albumin 4.9g/dl Globulin 3.10g/dl Albumin/Globulin Ratio 1.58 Lipase 51U/L Urine Color LT. YELLOW Urine Clarity CLEAR Urine pH 6.0 Urine Specific [place] >=1.030 Urine Ketones 3+ Urine Nitrite NEGATIVE Urine Bilirubin 1+ Urine Ictotest NEGATIVE Urine Urobilinogen 1.0 E.U./dL Urine Leukocyte Esterase 2+ Urine Microscopic RBC 2-5/HPF Urine Microscopic WBC >50/HPF Urine Epithelial Cells MODERATE Urine Bacteria FEW Urine Mucus FEW Urine Hemoglobin TRACE Urine Glucose NEGATIVE% Urine Total Protein 1+ Current Medications Medications (Trade) Dose Ordered Sig/Roman Route PRN Reason Start Time Stop Time Status Last Admin Dose Admin Sodium Chloride (NS) 1,000 ml @ 1,000 mls/hr Q1H STAT IV 02/27/17 07:48 02/27/17 08:47 DC 02/27/17 08:05 Ondansetron HCl (Zofran Inj) 4 mg ONCE STAT IV 02/27/17 07:48 02/27/17 07:52 DC 02/27/17 08:05 Morphine Sulfate (morphine) 2 mg ONCE ONCE IV 02/27/17 08:00 02/27/17 08:01 DC 02/27/17 08:05 Famotidine (Pepcid) 20 mg ONCE ONCE PO 02/27/17 09:30 02/27/17 09:31 DC 02/27/17 09:32 Potassium Chloride (Klor-Con 20) 40 meq ONCE STAT PO 02/27/17 09:26 02/27/17 09:28 DC 02/27/17 09:32 Acetaminophen 1000 mg 1,000 mg ONCE STAT PO 02/27/17 10:08 02/27/17 10:09 DC 02/27/17 10:24 Sodium Chloride 1,000 ml @ 1,000 mls/hr Q1H ONCE IV 02/27/17 10:30 02/27/17 11:29 02/27/17 10:31 Ceftriaxone Sodium (Rocephin) 50 ml @ 100 mls/hr ONCE ONCE IVPB 02/27/17 11:00 02/27/17 11:29 02/27/17 10:59 Procedures/MDM ER COURSE: I kept the patient and/or family informed of laboratory and diagnostic imaging results throughout the emergency room course. EKG, MONITORS, & DIAGNOSTIC IMAGING: [place] [address] Radiology Main Line: [phone] DIAGNOSTIC IMAGING REPORT Patient: ION GRISSOM : 1995 Age: 21 Sex: F MR #: [id number] DOS: 02/27/17 0748 Ordering MD: ANH AGUILAR PA-C Location: [facility] Room/Bed: PROCEDURE: US OB. CLINICAL INDICATION: Vaginal spotting, pelvic pain TECHNIQUE: Multiple sonographic images of the pelvis and gravid uterus were obtained. The images were reviewed on a PACS workstation. COMPARISON: 02/23/2017 FINDINGS: There is a single viable intrauterine gestation. Cardiac activity is present with 142 beats per minute. There is a variable presentation. The placenta is anterior. There is no evidence for an abruption or placenta previa. There is a normal amount of amniotic fluid with a MVP = 4.8 cm. Measurements were made in order to determine age. The results are as follows: BPD = 3.9 cm HC = 14.8 cm AC = 13.1 cm FL = 2.7 cm Estimated gestational age of approximately 18 weeks and 1 day based on ultrasound measurements. Clinical age: 18 weeks and 6 days. The estimated date of delivery is 07/30/17, based on ultrasound measurements. The EFW = 237 g, 20.6%, based on LMP age. The ovaries were not visualized. The adnexa are normal. RPTAT: AA IMPRESSION: Single viable intrauterine gestation of approximately 18 weeks and 1 day based on ultrasound measurements. .Chapincito Marin MD, MD Date Time Electronically viewed and signed by .Chapincito Marin MD, MD on 02/27/2017 08: 46 .S/ CC: ANH AGUILAR PA-C MEDICATIONS: IV fluids, Zofran, 2 mg of morphine. LAB INTERPRETATION: CBC showed no evidence of systemic infection or severe anemia. CMP showed no evidence , severe acidosis, alkalosis, renal failure, or liver disease. CMP showed low potassium lipase showed no evidence of acute pancreatitis. UA showed 2+ leukocytes with no nitrites or hematuria. \ MEDICAL DECISION MAKING: This is a 21-year-old female who is who presents with back pain and vomiting . Vital signs were reviewed. Patient is afebrile. Patient is not hypoxic. Patient is not toxic. 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 All imaging studies and laboratory studies were discussed with patient. He has ordered 40 mEq of KCl and p.o. Pepcid. Patient will be observed for the next [address] Levine, my supervising physician stated to order tylenol. Rocephin was also ordered. Patient was crying and not resting comfortable for the last hour. Patient will be admitted for intractable pain. Low suspicion for cauda equine syndrome, spinal epidural hematoma, spinal epidural abscess, osteomyelitis, fracture, aortic dissection, AAA,nephrolithiasis, septic stone, obstructed stone. Patient will be transferred to ED1. Departure Diagnosis: Primary Impression: Vomiting Vomiting type: unspecified Vomiting Intractability: non-intractable Nausea presence: with nausea Qualified Code: R11.2 - Non-intractable vomiting with nausea, unspecified vomiting type Additional Impression: Back pain Back pain location: back pain in unspecified location Chronicity: unspecified Back pain laterality: unspecified Qualified Code: M54.9 - Back pain, unspecified back location, unspecified back pain laterality, unspecified chronicity Condition: ANH Spring PA-C Feb 27, 2017 08:36
--- NOTE | 2017-02-27 08:46 | RADRPT ---
PROCEDURE: US OB. CLINICAL INDICATION: Vaginal spotting, pelvic pain TECHNIQUE: Multiple sonographic images of the pelvis and gravid uterus were obtained. The images were reviewed on a PACS workstation. COMPARISON: 02/23/2017 FINDINGS: There is a single viable intrauterine gestation. Cardiac activity is present with 142 beats per min aleta. There is a variable presentation. The placenta is anterior. There is no evidence for an abruption or placenta previa. There is a normal amount of amniotic fluid with a MVP = 4.8 cm. Measurements were made in order to determine age. The results are as follows: BPD =3.9 cm HC =14.8 cm AC =13.1 cm FL =2.7 cm Estimated gestational age of approximately 18 weeks and 1 day based on ultrasound measurements. Clinical age: 18 weeks and 6 days. The estimated date of delivery is 07/30/17, based on ultrasound measurements. The EFW = 237 g, 20.6%, based on LMP age. The ovaries were not visualized. The adnexa are normal. RPTAT: AA IMPRESSION: Single viable intrauterine gestation of approximately 18 weeks and 1 day based on ultrasound measur ements. .Chapincito Marin MD, Date Time Electronically viewed and signed by .Chapincito Marin MD, on 02/27/2017 08:46 .S/
[2017-02-27 08:52] LABS: ALBUMIN 4.9 g/dl (3.3-4.9); ALBUMIN/GLOBULIN RATIO 1.58; BILIRUBIN,INDIRECT 0.6 mg/dl (0-1.1); BILIRUBIN,TOTAL 0.6 mg/dl (0.2-1.3); CALCIUM 9.7 mg/dl (8.4-10.2); CREATININE 0.4 mg/dl (0.44-1.00)
[2017-02-27 08:58] LABS: POTASSIUM 2.8 mmol/L (3.5-5.1)
[2017-02-27] MEDS ORDERED: POTASSIUM CHLORIDE (SR) 20 MEQ TAB PO STA (09:26)
[2017-02-27] MEDS ORDERED: FAMOTIDINE 20 MG TAB PO ONE (09:30)
[2017-02-27] MEDS ORDERED: ACETAMINOPHEN 500 MG TAB PO STA (10:08)
[2017-02-27 10:15] LABS: ADD UMIC YES; URINE BILIRUBIN (Dip) 1+ (NEGATIVE); URINE BLOOD (Dip) TRACE (NEGATIVE); URINE COLOR LT. YELLOW (YELLOW); URINE GLUCOSE (Dip) NEGATIVE (NEGATIVE); URINE KETONES (Dip) 3+ (NEGATIVE); URINE LEUKOCYTE ESTERASE (Dip) 2+ (NEGATIVE); URINE NITRITE (Dip) NEGATIVE (NEGATIVE); URINE TOTAL PROTEIN (Dip) 1+ (NEGATIVE); URINE UROBILINOGEN (Dip) 1.0 E.U./dL (0.1-1.0)
[2017-02-27] MEDS ORDERED: SOD CHLORIDE 0.9% 1,000 ML IV ONE (10:30)
[2017-02-27 10:42] LABS: BACTERIA,URINE FEW; ICTOTEST NEGATIVE (NEGATIVE); MUCUS,URINE FEW
[2017-02-27] MEDS ORDERED: CEFTRIAXONE 1 GM/50 ML (PMX) 50 ML IVPB ONE (11:00)
[2017-02-27] MEDS ORDERED: ONDANSETRON 4 MG INJ IV PRN (14:30)
[2017-02-27] MEDS ORDERED: morphine 2 MG INJ IV PRN (14:30)
[2017-02-27] MEDS ORDERED: ACETAMINOPHEN 325 MG TAB PO PRN ×2 (14:30→15:30)
--- NOTE | 2017-02-27 15:28 | EN ---
Date/Time of Note Date/Time of Note DATE: 02/27/17 TIME: 15:26 ER Progress Note Spoke with Dr. Child who will be admitting the patient for pyelonephritis and hypokalemia. Also spoke with Kenia, chronic oncologist who will be following the patient on the floor. She is already been treated with Rocephin and given IV fluid. LETICIA LEVINE DO Feb 27, 2017 15:28
[2017-02-27] MEDS ORDERED: NACL 0.9% 3 ML SYG IV SCH (15:30)
[2017-02-27] MEDS ORDERED: CEFTRIAXONE 1 GM/50 ML (PMX) 50 ML IVPB SCH (15:30)
--- NOTE | 2017-02-27 15:43 | RADRPT ---
PROCEDURE: Retroperitoneal US. CLINICAL INDICATION: Flank pain TECHNIQUE: Multiple sonographic images of the kidneys and retroperitoneum were obtained. The imag es were reviewed on a PACS workstation. COMPARISON: 01/30/2017 FINDINGS: The kidneys are normal in size, contour, cortical thickness and cortical echogenicity. The right kidney measures 11.6 cm. The left kidney measures 10.3 cm. No kidney stones are visualized. There is mild right-sided hydronephrosis. The urinary bladder is normal. RPTAT: AA IMPRESSION: Mild right-sided hydronephrosis. .Chapincito Marin MD, Date Time Electronically viewed and signed by .Chapincito Marin MD, MD on 02/27/2017 15:43 .S/
--- NOTE | 2017-02-27 16:21 | HP ---
DATE OF ADMISSION: 02/27/2017 TIME OF EVALUATION: 1500 hours. REASON FOR ADMISSION: Persistent vomiting. Back pain x4 days. CONSULTANTS: Laborist tonguer. HISTORY OF PRESENT ILLNESS: This is a 21-year-old female who is who came to the emergency room with chief complaint of multiple episodes of nonbilious, nonbloody vomiting as well as severe back pain. The patient had multiple ER visits during the past few months for similar complaints. The patient was last discharged from inpatient hospitalization on 02/06/2017 and she was diagnosed to have pyelonephritis. Her last visit to the ER was on 02/25/2017 with similar complaints. The patient's urine culture from 02/25/2017 is still pending. The patient's urine culture from other visit prior to 02/25/2017 in the ER was showing Gardnerella vaginalis and mix of gram-positive organisms, most likely contaminant. The patient verbalized back pain as a sharp pain. The patient denied any urinary or bowel incontinence. The patient was complaining of some vaginal spotting. There were no reported fevers or chills. The patient denied any chest pain, cough or shortness of breath. The patient verbalized that she has been using marijuana prior to becoming . The patient verbalized that she has stopped using marijuana since she knew that she was in 10/2016, however, the patient's urine drug toxicology done on 12/28/2016 showed positive for cannabinoids. The patient has been crying hysterically in pain in the ER for pain medications. The patient's workup in the ER showed that she has severe hypokalemia with a potassium of 2.8. The patient was noticed to have leukocytosis, WBC of 18.2. The patient was afebrile. The patient was treated with IV morphine, IV fluids, IV ceftriaxone and antiemetics in the emergency room along with potassium supplements. PAST MEDICAL HISTORY: No significant past medical history. PAST SURGICAL HISTORY: Denies. HOME MEDICATIONS: 1. Phenergan 25 mg p.o. q.6h. p.r.n. nausea, vomiting. 2. Phenergan 25 mg OK. q.6h. p.r.n. nausea, vomiting. 3. Keflex 500 mg p.o. q.i.d. 4. Tylenol 500 mg p.o. q.4h. p.r.n. pain. 5. Zofran ODT 4 mg p.o. q.6h. 6. vitamin one tablet p.o. daily. ALLERGIES: NO KNOWN DRUG ALLERGIES. SOCIAL HISTORY: The patient is currently not working. The patient lives with her fiance. She verbalized using alcohol, tobacco and marijuana on a regular basis before getting . REVIEW OF SYSTEMS: A 12-point review of systems were made and were negative other than what is mentioned in history of present illness. PHYSICAL EXAMINATION: VITAL SIGNS: Temperature 97.6, pulse rate 82, respiratory rate 18, blood pressure 128/76, oxygen saturation 98% on room air. GENERAL: This is a well-built, well-nourished female patient lying in bed in no apparent distress. HEENT: Head normocephalic and atraumatic. Eyes: Anicteric sclerae. Conjunctivae clear. ENT: Nasal septum is midline. Oral mucosa is dry. NECK: Supple. No JVD noticed. RESPIRATORY: Bilaterally clear to auscultation. No adventitious breath sounds. No use of accessory muscles of respiration. CARDIAC: Regular rate and rhythm. S1, S2 heard. ABDOMEN: Soft. Nontender. Bowel sounds hypoactive in all 4 quadrants. GENITOURINARY: Deferred. EXTREMITIES: No cyanosis, no clubbing, no edema. Peripheral pulses palpable. BACK: Tenderness around the spinal column and over the lumbar and sacral spine. Unable to elicit CVA tenderness since the patient is very sensitive to touch. NEUROLOGIC: The patient is awake, alert and oriented. Moves all 4 extremities. No focal neurologic deficits. LABORATORY AND DIAGNOSTIC DATA: WBC 18.0, hemoglobin 13.0, hematocrit 36.2, platelet count 282. Sodium 134, potassium 2.8, chloride 100, carbon dioxide 20 , anion gap 15, BUN 4, creatinine 0.47, glucose 90, calcium 9.7, total bilirubin 0.6, AST 21, ALT 23, alkaline phosphatase 70, total protein 8.0, albumin 4.9, lipase 51. Urinalysis: Urine nitrite negative, urine leukocyte esterase 2+, urine microscopic WBC greater than 50. Obstetrical ultrasound .Single viable intrauterine gestation of approximately 18 weeks and 1 day based on ultrasound measurements. IMPRESSION: This is a 21-year-old female who who came to the emergency room with a chief complaint of intractable low back pain as well as multiple episodes of vomiting who was found to have evidence of urinary tract infection, possible underlying pyelonephritis. She will be admitted here for further treatment and evaluation. ASSESSMENT AND PLAN: 1. Sepsis. The source of infection is most probably urinary tract infection. Pancultures will be obtained. The patient will be started on empiric antibiotics. The patient will be provided with adequate IV fluids. The patient has no evidence of any septic shock at this time. 2. Intractable back pain. This could be probably related to her . The patient has been seeking medical attention and was getting analgesics in the ER frequently because of low back pain. The etiology remains unclear. Unfortunately, the patient cannot undergo further imaging studies because of her current . The patient will be treated symptomatically. We will have our BILLET HEADER colleagues see the patient. 3. Intrauterine . Obstetric ultrasound showing 18 weeks viable intrauterine gestation. The laborist tonguer was informed about the patient's admission who will evaluate the patient. The patient has poor outpatient followup with OB/G. The patient was seen by OB/G during her last visit in 2016 at [facility]. 4. Hypokalemia. Most probably secondary to persistent nausea and vomiting. The patient's potassium was repleted. The patient will be provided with adequate IV hydration. Plan. The patient will be admitted to inpatient medical/surgical floor. The patient will be started on a regular diet. She will be started on DVT prophylaxis with bilateral sequential compression devices. The patient will remain a FULL CODE. Activities will be as tolerated. The rest of the patient's management will be based on clinical course, the results of diagnostic studies and input from consultants. Based on the patient's clinical presentation, she most probably requires at least one midnight's stay for further management and evaluation of her clinical presentation. The case and management of this patient was fully discussed with Dr. Hull. GLADIS HULL MD, AM/ZACKERY Conf#: [id number] DID#: [id number] KARTHIKEYAN
[2017-02-27 16:24] LABS: MAGNESIUM 1.5 mg/dl (1.7-2.5)
[2017-02-27 16:55] LABS: THYROID STIMULATING HORMONE 0.193 MIU/L (0.465-4.680)
[2017-02-27] MEDS ORDERED: MAGNESIUM SULFATE 2 GM/50 ML 50 ML IVPB ONE ×2 (17:00→21:30)
[2017-02-27 17:19] LABS: BENZODIAZEPINES NEGATIVE (NEGATIVE); CANNABINOIDS POSITIVE (NEGATIVE); COCAINE NEGATIVE (NEGATIVE); OPIATES POSITIVE (NEGATIVE)
[2017-02-27 17:41] LABS: BARBITURATES NEGATIVE (NEGATIVE)
[2017-02-27 19:55] VITALS: PULSE 100; TEMP 98.2
[2017-02-27 20:00] VITALS: Ht 167.6 cm; Wt 72.0 kg
[2017-02-27 20:40] VITALS: BP 134/67
[2017-02-27] MEDS: SOD CHLORIDE 0.9% 1,000 ML IV SCH (21:11)
[2017-02-27] MEDS: ACETAMINOPHEN 500 MG TAB PO PRN (21:31)
[2017-02-27] MEDS: ONDANSETRON 4 MG INJ IV PRN (22:34)
[2017-02-28] MEDS: SOD CHLORIDE 0.9% 1,000 ML IV SCH ×3 (01:02→21:06)
[2017-02-28] MEDS: ACETAMINOPHEN 500 MG TAB PO PRN (05:54)
[2017-02-28 07:30] LABS: ADD SCAN DIFF NO
[2017-02-28 07:37] LABS: BASOPHILS % 0.3 % (0.0-2.0); EOSINOPHILS % 0.3 % (0.0-7.0); HEMATOCRIT 31.2 % (37.0-47.0); HEMOGLOBIN 10.6 g/dl (12.0-16.0); LYMPHOCYTES # 1.3 10^3/ul (0.8-2.9); LYMPHOCYTES % 9.6 % (15.0-51.0); MEAN CORPUSCULAR HEMOGLOBIN 30.3 pg (29.0-33.0); MEAN CORPUSCULAR VOLUME 89.1 fl (82.0-101.0); MEAN PLATELET VOLUME 10.3 fl (7.4-10.4); MONOCYTE # 0.7 10^3/ul (0.3-0.9); MONOCYTES % 4.8 % (0.0-11.0); NEUTROPHIL # 11.8 10^3/ul (1.6-7.5); NEUTROPHILS % 84.6 % (39.0-77.0); PLATELET COUNT 218 10^3/UL (140-415); RED CELL DISTRIBUTION WIDTH 13.3 % (11.5-14.5); WHITE BLOOD COUNT 13.9 10^3/ul (4.8-10.8)
[2017-02-28 07:55] VITALS: BP 160/80; RESP 20
[2017-02-28] MEDS ORDERED: HYDROCODONE/APAP (5/325) TAB PO PRN (08:00)
[2017-02-28 08:13] LABS: ANION GAP 16 (8-16); CALCIUM 8.1 mg/dl (8.4-10.2); CARBON DIOXIDE 18 mmol/L (21-31); CHLORIDE 103 mmol/L (97-110); CREATININE 0.42 mg/dl (0.44-1.00); GLUCOSE 58 mg/dl (70-220); POTASSIUM 3.1 mmol/L (3.5-5.1); SODIUM 134 mmol/L (135-144)
[2017-02-28 08:19] LABS: BLOOD UREA NITROGEN < 2 mg/dl (7-20)
[2017-02-28 08:35] LABS: MAGNESIUM 1.9 mg/dl (1.7-2.5); PHOSPHORUS 2.8 mg/dl (2.5-4.9)
[2017-02-28] MEDS: MULTIVIT/MIN/FOLATE/IRON/PREN TAB PO SCH (10:41)
--- NOTE | 2017-02-28 10:42 | QN ---
Documentation Comment iup 18 weeks with back pain throughout back/vominting vss exam pt with pain upon palpation throuhout back a/p iup 18 weeks continue rocephin until cultures return pt with probable pshycosocial issues as well SW consult JESSE TORRES MD Feb 28, 2017 10:42
[2017-02-28] MEDS: CEFTRIAXONE 1 GM/50 ML (PMX) 50 ML IVPB SCH (11:01)
[2017-02-28] MEDS: ONDANSETRON 4 MG INJ IV PRN ×3 (11:02→22:47)
[2017-02-28] MEDS ORDERED: POTASSIUM CHLORIDE (SR) 20 MEQ TAB PO STA (11:52)
--- NOTE | 2017-02-28 14:21 | PN ---
Date/Time of Note Date/Time of Note DATE: 02/28/17 TIME: 14:20 Assessment/Plan VTE Prophylaxis VTE Prophylaxis Intervention: SCD's Lines/Catheters IV Catheter Type (from Nrs): Peripheral IV Assessment/Plan Chief Complaint/Hosp Course 1. Sepsis. The source of infection is most probably urinary tract infection. Pancultures pending. No evidence of septic shock. 2. Intractable back pain. This could be probably related to her . The patient has been seeking medical attention and was getting analgesics in the ER frequently because of low back pain. The etiology remains unclear. Unfortunately, the patient cannot undergo further imaging studies because of her current . The patient will be treated symptomatically. Being followed by OB. 3. Intrauterine . Obstetric ultrasound showing 18 weeks viable intrauterine gestation. Being followed by OB. Continue vitamins. 4. Hypokalemia. Replete. 5. Substance abuse. Social service consult will be obtained. 6. Fluids, electrolytes, and nutrition. Regular diet. 7. DVT prophylaxis. Bilateral sequential compression devices. 8. Gastrointestinal prophylaxis. Not indicated. 9. Plan. Continue empiric antibiotics. Await final urine cultures. Case discussed with Dr. Child. Case discussed with the OB. Problems: Subjective 24 Hr Interval Summary Free Text/Dictation The patient has been crying hysterically for pain medications. Exam/Review of Systems Vital Signs Vitals Vital Signs Date Time Temp Pulse Resp B/P Pulse Ox O2 Delivery O2 Flow Rate FiO2 02/28/17 07:55 98.8 86 20 160/80 94 02/27/17 19:55 Room Air Intake and Output 02/27/17 02/27/17 02/28/17 15:00 23:00 07:00 Intake Total 1000 ml 1050 ml Balance 1000 ml 1050 ml Exam HEENT: Head normocephalic and atraumatic. Eyes: Anicteric sclerae. Conjunctivae clear. ENT: Nasal septum is midline. Oral mucosa is dry. NECK: Supple. No JVD noticed. RESPIRATORY: Bilaterally clear to auscultation. No adventitious breath sounds. No use of accessory muscles of respiration. CARDIAC: Regular rate and rhythm. S1, S2 heard. ABDOMEN: Soft. Nontender. Bowel sounds hypoactive in all 4 quadrants. GENITOURINARY: Deferred. EXTREMITIES: No cyanosis, no clubbing, no edema. Peripheral pulses palpable. BACK: Tenderness around the spinal column and over the lumbar and sacral spine. Unable to elicit CVA tenderness since the patient is very sensitive to touch. NEUROLOGIC: The patient is awake, alert and oriented. Moves all 4 extremities. No focal neurologic deficits. Results Result Diagram: 02/28/17 0520 02/28/17 0550 Results 24 hrs Laboratory Tests Test 02/27/17 15:29 02/28/17 05:20 02/28/17 05:50 Hemoglobin A1c 4.8 Magnesium Level 1.5 L 1.9 Thyroid Stimulating Hormone (TSH) 0.193 L Free Thyroxine 1.45 White Blood Count 13.9 #H Red Blood Count 3.50 L Hemoglobin 10.6 L Hematocrit 31.2 L Mean Corpuscular Volume 89.1 Mean Corpuscular Hemoglobin 30.3 Mean Corpuscular Hemoglobin Concent 34.0 Red Cell Distribution Width 13.3 Platelet Count 218 # Mean Platelet Volume 10.3 Neutrophils % 84.6 H Lymphocytes % 9.6 L Monocytes % 4.8 Eosinophils % 0.3 Basophils % 0.3 Nucleated Red Blood Cells % 0.0 Neutrophils # 11.8 H Lymphocytes # 1.3 Monocytes # 0.7 Eosinophils # 0.0 Basophils # 0.0 Nucleated Red Blood Cells # 0.0 Sodium Level 134 L Potassium Level 3.1 L Chloride Level 103 Carbon Dioxide Level 18 L Anion Gap 16 Blood Urea Nitrogen < 2 L Creatinine 0.42 L Glucose Level 58 #L Calcium Level 8.1 L Phosphorus Level 2.8 Triglycerides Level 99 Cholesterol Level 154 LDL Cholesterol, Calculated 96 HDL Cholesterol 38 Cholesterol/HDL Ratio 4.0 Medications Medications Current Medications Morphine Sulfate 2 mg 2 mg Q4H PRN IV Pain Last administered on 02/27/17 14:46 ; Admin Dose 2 MG; Start 02/27/17 at 14:30; Status Future Hold Sodium Chloride (NS) 1,000 ml @ 100 mls/hr Q10H IV Last administered on 11:01; Admin Dose 100 MLS/HR; Start 02/27/17 at 15:02 Ondansetron HCl (Zofran Inj) 4 mg Q6H PRN IV NAUSEA AND/OR VOMITING Last administered on 02/28/17 11:02; Admin Dose 4 MG; Start 02/27/17 at 15:30 Prenat Multivit/ Manager Lvn/Iron/Folic Ac ( S) 1 tab DAILY PO Last administered on 02/28/17 10:41; Admin Dose 1 TAB; Start 02/28/17 at 09:00 Acetaminophen 1000 mg 1,000 mg Q6H PRN PO PAIN AND OR ELEVATED TEMP Last administered on 02/28/17 05:54; Admin Dose 1,000 MG; Start 02/27/17 at 21:00 Ceftriaxone Sodium (Rocephin) 50 ml @ 100 mls/hr Q24H IVPB Last administered on 02/28/17 11:01; Admin Dose 100 MLS/HR; Start 02/28/17 at 11:00 Acetaminophen/ Hydrocodone Bitart (Noti (5/325)) 1 tab Q6H PRN PO pain; Start 02/28/17 at 08:00 GLADIS ALEXANDER NP Feb 28, 2017 14:21
[2017-02-28 22:05] VITALS: BP 124/60; RESP 18
[2017-03-01] MEDS: ONDANSETRON 4 MG INJ IV PRN (02:47)
[2017-03-01 05:08] LABS: ADD SCAN DIFF NO
[2017-03-01 05:13] LABS: BASOPHILS % 0.2 % (0.0-2.0); EOSINOPHILS # 0.1 10^3/ul (0.0-0.5); EOSINOPHILS % 0.7 % (0.0-7.0); HEMATOCRIT 32.4 % (37.0-47.0); HEMOGLOBIN 11.1 g/dl (12.0-16.0); LYMPHOCYTES # 1.6 10^3/ul (0.8-2.9); LYMPHOCYTES % 18.9 % (15.0-51.0); MEAN CORPUSCULAR HEMOGLOBIN 30.4 pg (29.0-33.0); MEAN CORPUSCULAR HGB CONC 34.3 g/dl (32.0-37.0); MEAN CORPUSCULAR VOLUME 88.8 fl (82.0-101.0); MEAN PLATELET VOLUME 9.8 fl (7.4-10.4); MONOCYTE # 0.6 10^3/ul (0.3-0.9); MONOCYTES % 6.8 % (0.0-11.0); NEUTROPHIL # 6.2 10^3/ul (1.6-7.5); NEUTROPHILS % 72.9 % (39.0-77.0); PLATELET COUNT 227 10^3/UL (140-415); RED BLOOD COUNT 3.65 10^6/ul (4.20-5.40); RED CELL DISTRIBUTION WIDTH 13.5 % (11.5-14.5); WHITE BLOOD COUNT 8.6 10^3/ul (4.8-10.8)
[2017-03-01 05:35] LABS: ANION GAP 12 (8-16); CALCIUM 8.4 mg/dl (8.4-10.2); CARBON DIOXIDE 23 mmol/L (21-31); CHLORIDE 108 mmol/L (97-110); CREATININE 0.39 mg/dl (0.44-1.00); GLUCOSE 84 mg/dl (70-220); POTASSIUM 3.5 mmol/L (3.5-5.1); SODIUM 139 mmol/L (135-144)
[2017-03-01 05:36] LABS: BLOOD UREA NITROGEN < 2 mg/dl (7-20)
[2017-03-01 05:38] LABS: MAGNESIUM 1.7 mg/dl (1.7-2.5); PHOSPHORUS 2.2 mg/dl (2.5-4.9)
[2017-03-01] MEDS: SOD CHLORIDE 0.9% 1,000 ML IV SCH (07:29)
[2017-03-01] MEDS: MULTIVIT/MIN/FOLATE/IRON/PREN TAB PO SCH (12:06)
[2017-03-01] MEDS: CEFTRIAXONE 1 GM/50 ML (PMX) 50 ML IVPB SCH (12:07)
--- NOTE | 2017-03-01 13:29 | PDOCDIS ---
Discharge Instructions DIAGNOSIS Discharge Diagnosis: Intrauterine . Low back pain. CONDITION Patient Condition: Stable HOME CARE INSTRUCTIONS: Diet Instructions: Regular OTHER ORDERS: Other Orders: 1. Regular diet as tolerated. 2. Drink enough water. 3. Follow-up with clinic as scheduled. GLADIS ALEXANDER NP Mar 01, 2017 13:29
--- NOTE | 2017-03-01 19:00 | DS ---
DATE OF ADMISSION: 02/27/2017 DATE OF DISCHARGE: 03/01/2017 FINAL DIAGNOSES: 1. Status post systemic inflammatory response syndrome. 2. Intractable back pain. Resolved. 3. Intrauterine . 4. Substance abuse. OUTSIDE SALES ADVERTISING EXECUTIVE: Luis Rice MD, VESSEL CREW MEMBER. HOSPITAL COURSE: This is a 21-year-old female who is G1, P0 who came to the emergency room with chief complaint of multiple episodes of nonbilious, nonbloody vomiting as well as severe back pain. The patient had multiple ER visits during the past few months for similar complaints. The patient was last discharged from inpatient hospitalization on 02/06/2017 when she was diagnosed to have pyelonephritis. Her last visit to the ER was on 02/25/2017 with similar complaints. The patient denied any urinary or bowel incontinence. She was complaining of back pain described as a sharp pain. The patient was complaining of some vaginal spotting. There was no report of fevers or chills. The patient denied any chest pain, cough or shortness of breath. The patient verbalized that she has been using marijuana prior to becoming . The patient was noticed to have a WBC of 18.2. The patient's serum potassium was 2.8. Provided the patient's history of present illness and the diagnostic findings, a clinical decision was made to admit the patient to inpatient setting to have her further evaluated. The patient was admitted to inpatient medical/surgical floor. The patient was started on empiric antibiotics for any underlying sepsis. The patient's urinalysis in the ER showed positive leukocyte esterase 2+ and urine microscopic WBC greater than 50. The patient also had underlying leukocytosis. Pancultures were ordered. The patient's blood cultures remained negative. The patient's urine culture was inconclusive. The patient's leukocytosis resolved over the course of her hospital stay. The patient had no febrile episodes during the patient's hospital stay. The patient underwent a renal ultrasound that showed mild right-sided hydronephrosis. The etiology of the patient's low back pain remained unclear. Unfortunately, the patient will not be able to undergo any imaging studies because of underlying intrauterine . Nevertheless, the patient's back pain resolved over the course of her hospital stay. The patient had no evidence of any pyelonephritis. The patient had underlying systemic inflammatory response syndrome, which was adequately treated with IV antibiotics and IV hydration. The patient has underlying intrauterine . The patient's obstetric ultrasound was showing 18 weeks viable intrauterine gestation. The patient was being followed by VESSEL CREW MEMBER, who recommended the current treatment for her symptomatology. She was also continued on vitamins. The patient is a prior marijuana abuser. The patient verbalized that she had stopped marijuana since she learned that she was . However, the patient's urine drug screen, on 12/28/2016 showed cannabinoids. The patient's current drug screen also showed cannabinoids. The patient was evaluated by a social media community manager. The patient has good support system at home. The patient has outpatient followup. As per social media community manager note, there is no need for child protective services intervention at this time. The patient's symptoms resolved over the course of her hospital stay. The patient was stable to be discharged home. The patient denied any complaints at the time of discharge. DISCHARGE DISPOSITION/PLAN: The patient will be discharged home today. The patient was instructed to take a regular diet as tolerated. She was instructed to drink enough water. She was instructed to follow up with her clinic as scheduled. The patient verbalized understanding of her discharge instructions. CONDITION AT DISCHARGE: Stable. DISCHARGE MEDICATIONS: None. PERTINENT LABORATORY AND DIAGNOSTIC DATA: 1. Latest CBC: WBC 8.6, hemoglobin 11.1, hematocrit 32.4, platelet count 227. 2. Latest BMP: Sodium 139, potassium 3.5, chloride 108, carbon dioxide 23, anion gap 12, BUN less than 2, creatinine 0.39, glucose 84, calcium 8.4, phosphorus 2.2, magnesium 1.7. 3. Urine drug toxicology positive for opioids and cannabinoids. 4. Urine culture. Mixed gram-positive organisms. 5. Blood culture x2 negative. 6. Obstetric ultrasound. Single viable intrauterine gestation of approximately 18 weeks and 1 day based on ultrasound measurements. 7. Renal ultrasound. Mild right-sided hydronephrosis. At this time, I would like to thank Dr. Rice for seeing the patient and providing clinical recommendations. The case and management of this patient was fully discussed with Dr. Hull. Approximately 35 minutes was spent on coordinating the discharge on this patient. GLADIS HULL MD, AM/ZACKERY Conf#: [id number] DID#: [id number] [facility]
== END 2017-03-01 15:33 | disposition home or self-care (01) | DRG 781 ==
LOC: FTE 07:27 → PP2 14:10
PROVIDERS: ADMIT Family Medicine; ATTEND Family Medicine
DX: O21.1 Hyperemesis gravidarum with metabolic disturbance (principal); F12.10 Cannabis abuse, uncomplicated; Z3A.18 18 weeks gestation of pregnancy; M54.9 Dorsalgia, unspecified
CPT/HCPCS: 36415; 76775; 76805; 80048; 80053; 80061; 80307; 81001; 83036; 83690; 83735; 84100; 84439; 84443; 85025; 86900; 86901; 87040; 87086; 96361; 96374; 96375; 96376; J0696; J2270; J2405; J3475; J7030

== ENCOUNTER 2017-03-17 18:29 | Outpatient (CLI) | payer OTHER ==
[~2017-03-17] VITALS: Ht 167.6 cm; Wt 67.4 kg
[2017-03-17 18:52] VITALS: Ht 167.6 cm; Wt 67.4 kg
--- NOTE | 2017-03-17 19:38 | RADRPT ---
PROCEDURE: Limited obstetric ultrasound CLINICAL INDICATION: VOMITING TECHNIQUE: Multiple transverse and longitudinal grayscale images of the pelvis were obtained mccormick sabdominally and endovaginally.. COMPARISON: same day FINDINGS: There is a single live intrauterine gestation in a transverse presentation to maternal right with a heart rate of 152 bpm. The cervix is closed and measures 4.1 cm in length. The placenta is anterior. There is no evidence of a placental abruption or placenta previa. RPTAT: AA IMPRESSION: The cervix is closed and measures 4.1 cm in length. Physician Krista Date Time Electronically viewed and signed by Physician Krista on 03/17/2017 19:38 /
[2017-03-17] MEDS ORDERED: DEXTROSE 5%-LR 1,000 ML IV SCH (20:35)
[2017-03-17] MEDS ORDERED: FAMOTIDINE 20 MG INJ IV ONE (21:00)
[2017-03-17] MEDS ORDERED: MAGNESIUM HYDROXIDE 30ML CUP PO ONE (21:00)
[2017-03-17] MEDS ORDERED: ONDANSETRON 4 MG INJ IV PRN (21:00)
[2017-03-17 22:51] LABS: ADD UMIC YES; UR BILIRUBIN (Dip) NEGATIVE (NEGATIVE); UR BLOOD (Dip) NEGATIVE (NEGATIVE); UR CLARITY CLEAR (CLEAR); UR COLOR LT. YELLOW (YELLOW); UR KETONES (Dip) NEGATIVE (NEGATIVE); UR LEUKOCYTE ESTERASE (Dip) 1+ (NEGATIVE); UR NITRITE (Dip) NEGATIVE (NEGATIVE); UR TOTAL PROTEIN (Dip) NEGATIVE (NEGATIVE); UR UROBILINOGEN (Dip) 0.2 E.U./dL (0.1-1.0)
[2017-03-17 23:02] LABS: UR SQUAMOUS EPITHELIAL CELL FEW; URINE RBCS 0-2 /HPF (0)
[2017-03-17 23:03] LABS: UR BACTERIA FEW
[2017-03-17 23:23] LABS: BARBITURATES Negative (NEGATIVE); BENZODIAZEPINES Negative (NEGATIVE); CANNABINOIDS Positive (NEGATIVE); COCAINE Negative (NEGATIVE); OPIATES Negative (NEGATIVE)
--- NOTE | 2017-03-18 01:27 | TRIAGE ---
OB Triage Datetime Report Generated by CPN: 03/18/2017 01:27 Datetime: 03/17/2017 23:26 Stage of : OB Triage Datetime: 03/17/2017 23:00 Labor Evaluation Frequency: 0 Monitor Mode: External Datetime: 03/17/2017 22:00 Labor Evaluation Frequency: 0 Monitor Mode: External Datetime: 03/17/2017 21:10 Comments: MATERNAL HR Datetime: 03/17/2017 21:08 Heart Rate FHR Baseline Rate: 145 Datetime: 03/17/2017 21:00 Monitor Mode: External Datetime: 03/17/2017 20:00 Labor Evaluation Frequency: 0 Monitor Mode: External Datetime: 03/17/2017 19:15 Assessment Type: Triage Maternal Assessment Level of Consciousness: Fully Conscious DTR's/Clonus: DTRs 2+; No Clonus Headache: Denies Blurred Vision: No Respiratory Effort: Unlabored; Regular Rhythm; Equal Expansion Breath Sounds, Left: Clear and Equal Breath Sounds, Right: Clear and Equal Nausea/Vomiting: Present RUQ Epigastric Pain: Denies Lower Extremities Edema: None Degree: None Upper Extremities Edema: None Degree: .0 Facial Edema: None Fall Risk Assessment History of Falling: (0) No Secondary Diagnosis: (0) No Ambulatory Aid: (0) Bedrest/Nurse Assist IV Therapy: (0) No Gait: (0) Normal/Bedrest/Immobile Mental Status: (0) Oriented to Own Ability Fall Score: 0 Fall Risk Score Definition: No Risk: No action required Datetime: 03/17/2017 18:45 Stage of : OB Triage Assessment Type: Triage Maternal Assessment Level of Consciousness: Fully Conscious DTR's/Clonus: DTRs 2+; No Clonus Headache: Denies Blurred Vision: No Respiratory Effort: Unlabored; Regular Rhythm; Equal Expansion Breath Sounds, Left: Clear and Equal Breath Sounds, Right: Clear and Equal Nausea/Vomiting: Present RUQ Epigastric Pain: Denies Lower Extremities Edema: None Degree: None Upper Extremities Edema: None Degree: .0 Facial Edema: None Temperature Route: Oral Fall Risk Assessment History of Falling: (0) No Secondary Diagnosis: (0) No Ambulatory Aid: (0) Bedrest/Nurse Assist IV Therapy: (0) No Gait: (0) Normal/Bedrest/Immobile Mental Status: (0) Oriented to Own Ability Fall Score: 0 Fall Risk Score Definition: No Risk: No action required Pain Assessment Pain Scale: 7 Pain Presence: Intermittent Pain Type: Ache Pain Location: Abdomen Pain Relief Measures: Comfort Measures Vaginal Exam Membrane Status: Intact Vaginal Bleeding: None Datetime: 03/17/2017 18:38 EGA: 21.3 Movement: Present Contractions: Denies/Absent Rupture of Membranes: Denies Vaginal Bleeding: None Vaginal Discharge: Denies Recent Sexual Intercouse: Denies Abdominal Trauma: Not Applicable Patient Complaints: None Time Provider Notified: 03/17/2017 20:01 Provider Notified: DR RAMOS Initial Plan: CALL MIRTA ROBBINS Datetime: 03/17/2017 18:18 Time of Arrival: 03/17/2017 18:18 Arrived By: Ambulatory Arrived From: Home Chief Complaint: ABD PAIN AND VOMITING FOR 3 DAYS AND CONSTIPATION FOR 4 DAYS Movement: Present Rupture of Membranes: Denies Vaginal Bleeding: None Vaginal Discharge: Denies Recent Sexual Intercouse: Denies Abdominal Trauma: Not Applicable Patient Complaints: Vomiting (Annotations: Data stored by CPN on behalf of user) Patient Complaints: Vomiting Initial Plan: CX LENGHT, VE AND MONITOR PT FOR 20 MIN
--- NOTE | 2017-03-18 06:38 | PN ---
Triage Information Date/Time Weeks of Gestation 21 5/7 : 1 Para: 0 Diabetes: none Hypertention: none Additional information 21 Year-old G1 with SIUP at 21 5/7wks presents with a chief complaint of vomiting and abdominal pain. She has been receiving her care with Dr. Garcias. She states good movement. She denies shortness of breath, chest pain, headache, visual changes, vaginal bleeding or LOF. Physical Exam: General: Patient appears well, alert and oriented, NAD, appropriate mood and affect ABD: gravid, soft, non-tender. Back: No CVA tenderness (B/L) LE: No clubbing, cyanosis, edema, thigh or calf tenderness bilaterally FHT: 135 bpm Contractions:None Objective Heart Rate: 140's Contractions: None Results/Medications Results 24 hrs Laboratory Tests Test 03/17/17 22:31 Urine Color LT. YELLOW Urine Clarity CLEAR Urine pH 7.5 Urine Specific [place] 1.010 Urine Ketones NEGATIVE Urine Nitrite NEGATIVE Urine Bilirubin NEGATIVE Urine Urobilinogen 0.2 E.U./dL Urine Leukocyte Esterase 1+ H Urine Microscopic RBC 0-2 Urine Microscopic WBC 5-10 Urine Squamous Epithelial Cells FEW Urine Bacteria FEW Urine Hemoglobin NEGATIVE Urine Glucose 0.5% H Urine Total Protein NEGATIVE Urine Opiates Screen Negative Urine Barbiturates Negative Urine Amphetamines Screen Negative Urine Benzodiazepines Screen Negative Urine Cocaine Screen Negative Urine Cannabinoids Positive Assessment/Plan 21 Year-old G1 with SIUP at 21 5/7wks presents with a chief complaint of vomiting and epigastric pain. She received IVF, zofran and pepcid. She felt better. She has filled Rx for diclegis and zofran. Symptoms and sign of labor, preeclampsia, kick count discussed with patient, she voiced understanding. All of her questions answered. Patient was discharged home in stable condition with the appropriate discharge instructions provided. I would like patient to have close follow-up with her primary physician or outpatient clinic in 1-2 days or return to the ER for worsening symptoms or any other urgent concerns. CHERELLE RAMOS Mar 18, 2017 06:38
== END 2017-03-17 23:38 | disposition home or self-care (01) ==
LOC: L-D 18:29 → OBT 18:29
PROVIDERS: ATTEND Obstetrics & Gynecology
DX: O21.2 Late vomiting of pregnancy (principal); O26.892 Other specified pregnancy related conditions, second trimester; R10.9 Unspecified abdominal pain; Z3A.21 21 weeks gestation of pregnancy
CPT/HCPCS: 76817; 80307; 81001; 87086; J2405; J7121; Z7610

== ENCOUNTER 2017-05-26 15:05 | Emergency (ER) | payer OTHER ==
[~2017-05-26] VITALS: Ht 160 cm; Wt 76.0 kg
[2017-05-26 15:08] VITALS: Ht 160 cm; Wt 76.0 kg
== END 2017-05-27 00:19 | disposition left against medical advice (07) ==
LOC: FTE 15:05
DX: Z53.21 Procedure and treatment not carried out due to patient leaving prior to being seen by health care provider (principal)

== ENCOUNTER 2017-05-26 21:04 | Inpatient (IN) | payer OTHER ==
[2017-05-26] MEDS ORDERED: LACTATED RINGER'S 1,000 ML IV ONE (21:30)
[2017-05-26] MEDS ORDERED: ONDANSETRON 4 MG INJ IV STA (21:30)
[2017-05-26] MEDS ORDERED: LACTATED RINGER'S 1,000 ML IV SCH (21:30)
[2017-05-26 22:19] LABS: BASOPHIL # 0.1 10^3/ul (0.0-0.1); BASOPHILS % 0.3 % (0.0-2.0); HEMATOCRIT 34.2 % (37.0-47.0); HEMOGLOBIN 11.9 g/dl (12.0-16.0); LYMPHOCYTES % 5.7 % (15.0-51.0); MEAN CORPUSCULAR HEMOGLOBIN 28.8 pg (29.0-33.0); MEAN CORPUSCULAR HGB CONC 34.8 g/dl (32.0-37.0); MEAN CORPUSCULAR VOLUME 82.8 fl (82.0-101.0); MEAN PLATELET VOLUME 10.2 fl (7.4-10.4); MONOCYTE # 0.2 10^3/ul (0.3-0.9); MONOCYTES % 1.4 % (0.0-11.0); PLATELET COUNT 297 10^3/UL (140-415); RED BLOOD COUNT 4.13 10^6/ul (4.20-5.40); RED CELL DISTRIBUTION WIDTH 12.8 % (11.5-14.5); WHITE BLOOD COUNT 16.9 10^3/ul (4.8-10.8)
[2017-05-26 22:28] LABS: ADD UMIC YES; UR ASCORBIC ACID NEGATIVE (NEGATIVE); UR BACTERIA FEW /HPF (NONE SEEN); UR BILIRUBIN (Dip) NEGATIVE (NEGATIVE); UR BLOOD (Dip) 2+ mg/dL (NEGATIVE); UR CLARITY CLOUDY (CLEAR); UR COLOR AMBER (YELLOW); UR GLUCOSE (Dip) 1+ mg/dL (NEGATIVE); UR KETONES (Dip) 2+ mg/dL (NEGATIVE); UR LEUKOCYTE ESTERASE (Dip) 3+ Leu/ul (NEGATIVE); UR MUCUS MODERATE /HPF (NONE SEEN); UR NITRITE (Dip) NEGATIVE (NEGATIVE); UR RBC 0 /HPF (0-5); UR SPECIFIC GRAVITY (Dip) 1.028 (1.003-1.030); UR SQUAMOUS EPITHELIAL CELL FEW /HPF (FEW); UR TOTAL PROTEIN (Dip) 2+ mg/dl (NEGATIVE); UR UROBILINOGEN (Dip) NEGATIVE (NEGATIVE)
[2017-05-26 22:37] LABS: ALBUMIN 4.3 g/dl (3.3-4.9); ALBUMIN/GLOBULIN RATIO 1.04; BILIRUBIN,INDIRECT 0.3 mg/dl (0-1.1); BILIRUBIN,TOTAL 0.3 mg/dl (0.2-1.3); CALCIUM 9.6 mg/dl (8.4-10.2); CREATININE 0.5 mg/dl (0.44-1.00); POTASSIUM 3.1 mmol/L (3.5-5.1); TOTAL PROTEIN 8.4 g/dl (6.1-8.1); URIC ACID 5.1 mg/dl (3.1-7.9)
[2017-05-26] MEDS ORDERED: CEFTRIAXONE 1 GM/50 ML (PMX) 50 ML IVPB ONE (23:30)
[2017-05-26] MEDS ORDERED: DEXTROSE 5%-LR 1,000 ML IV SCH (23:30)
[2017-05-27] MEDS ORDERED: SOD CHLORIDE 0.9% 1,000 ML IV STA (00:11)
[2017-05-27] MEDS ORDERED: MEPERIDINE 50 MG INJ IV STA (00:23)
[2017-05-27] MEDS ORDERED: MEPERIDINE 50 MG INJ IV PRN (01:00)
[2017-05-27] MEDS ORDERED: AL HYDROX/MG HYDROX/SIMETH 30 ML CUP PO PRN (01:00)
--- NOTE | 2017-05-27 01:18 | HP ---
Date/Time of Note Date/Time of Note DATE: 05/27/17 TIME: 01:14 OB - History Hx of Present Free Text/Dictation 21-year-old female 1 para 0 at 31+ weeks gestation complaining of onset of nausea and vomiting 2 days ago after ingestion of food and a fast food outlet Chief Complaint: Generalized abdominal pain Estimated Due Date: Jul 31, 2017 : 1 Para: 0 Care: Good Care Ultrasounds: Normal mid trimester US Obstetrical Complications: Other (Patient apparently had nausea vomiting throughout the ) Medical Complications: None Past Family/Social History * Past Medical, Surgical, Family and Obstetric Histories reviewed from chart. OB Admission Exam Physical Exam HEENT: WNL Heart: Rhythm Normal Lungs: Clear, Equal Abdomen: WNL Extremities: Normal Reflexes: Normal Cervical Dilatation: None Effacement: 0% Station: -3 Membranes: Intact Heart Rate: 150's (/No comments can be made about heart tracing because of patient's come continuous retelling in bed) Contractions on Admission: None Last 72 hours Lab Results CBC & BMP 05/26/17 21:45 Liver Function Test 05/26/17 21:45 Alanine Aminotransferase (ALT/SGPT) 22 Albumin 4.3 Alkaline Phosphatase 136 H Aspartate Amino Transf (AST/SGOT) 24 Direct Bilirubin 0.00 Total Protein 8.4 H OB Assessment/Plan Other Assessment: 31 weeks gestation Nausea vomiting possible dehydration Elevated white counts Other plan: Start an IV hydration Empirically treat for UTI(and has positive UA) We will keep n.p.o. Provide supportive measures occluding pain medication DALE OLSEN MD May 27, 2017 01:18
[2017-05-27] MEDS: METOCLOPRAMIDE 10 MG INJ IV PRN ×3 (03:01→18:45)
[2017-05-27] MEDS: DEXTROSE 5%-0.45% NACL 1,000 ML IV SCH ×3 (03:09→19:37)
--- NOTE | 2017-05-27 03:26 | RADRPT ---
PROCEDURE: US Abdomen (right upper quadrant). CLINICAL INDICATION: Right upper quadrant pain TECHNIQUE: Multiple real-time longitudinal and transverse images of the right upper quadrant of th e abdomen were acquired utilizing a curved array transducer. Images were reviewed on a high-resoluti on PACS workstation. COMPARISON: 02/27/2017 FINDINGS: The liver is mildly enlarged and echogenicity without focal mass or intrahepatic biliary dilatation. There is normal hepatopedal flow within the main portal vein. The liver measures 16.7 cm. The ga llbladder is normal. There is no pericholecystic fluid or gallbladder wall thickening or gallstones . No intra or extrahepatic biliary dilatation is seen. The common bile duct measures 3.1 mm in maxi mal dimension. The visualized portions of the pancreas are unremarkable with obscuration of the dai l of the pancreas. No free fluid is identified. The right kidney measures 11.9 cm in length. There is normal echogenicity within the right kidney. Mild hydronephrosis appears increased. No calculus is identified. IMPRESSION: No evidence of cholelithiasis or acute cholecystitis. Increase mild right hydronephrosis. RPTAT: HMJB Physician Duyen Date Time Electronically viewed and signed by Physician Duyen on 05/27/2017 03:26 /
[2017-05-27 04:25] LABS: BARBITURATES Negative (NEGATIVE); BENZODIAZEPINES Negative (NEGATIVE); CANNABINOIDS Positive (NEGATIVE); COCAINE Negative (NEGATIVE); OPIATES Negative (NEGATIVE)
[2017-05-27] MEDS: MEPERIDINE 50 MG INJ IV PRN ×2 (05:43→18:45)
[2017-05-27] MEDS: FAMOTIDINE 20 MG INJ IV SCH ×2 (08:49→20:55)
[2017-05-27] MEDS ORDERED: ACETAMINOPHEN 1000MG/100ML IV 100 ML IVPB PRN (10:30)
--- NOTE | 2017-05-27 10:31 | RADRPT ---
PROCEDURE: Limited obstetric ultrasound CLINICAL INDICATION: Pain TECHNIQUE: Multiple transverse and longitudinal grayscale images of the pelvis were obtained mccormick sabdominally and transvaginally.. COMPARISON: 03/27/2017 FINDINGS: The cervix is closed with a length of 3 cm. There is a single viable intrauterine gestation. Cardiac activity is present with 152 beats per min [place]. There is a vertex presentation. The placenta is anterior. There is no evidence for an abruption or placenta previa. RPTAT: AA IMPRESSION: Cervix length measures 3.0 cm. .Chapincito Marin MD, Date Time Electronically viewed and signed by .Chapincito Marin MD, on 05/27/2017 10:31 .S/
[2017-05-27 16:16] LABS: BASOPHIL # 0.1 10^3/ul (0.0-0.1); BASOPHILS % 0.4 % (0.0-2.0); EOSINOPHILS % 0.2 % (0.0-7.0); HEMATOCRIT 29.6 % (37.0-47.0); HEMOGLOBIN 10.2 g/dl (12.0-16.0); LYMPHOCYTES # 1.5 10^3/ul (0.8-2.9); LYMPHOCYTES % 13.1 % (15.0-51.0); MEAN CORPUSCULAR HEMOGLOBIN 29.1 pg (29.0-33.0); MEAN CORPUSCULAR HGB CONC 34.5 g/dl (32.0-37.0); MEAN CORPUSCULAR VOLUME 84.3 fl (82.0-101.0); MEAN PLATELET VOLUME 9.7 fl (7.4-10.4); MONOCYTE # 0.6 10^3/ul (0.3-0.9); MONOCYTES % 5.4 % (0.0-11.0); NEUTROPHILS % 80.5 % (39.0-77.0); PLATELET COUNT 247 10^3/UL (140-415); RED BLOOD COUNT 3.51 10^6/ul (4.20-5.40); WHITE BLOOD COUNT 11.3 10^3/ul (4.8-10.8)
[2017-05-27] MEDS: PIPER-TAZO 3.375 GM IV (PMX) 100 ML IVPB SCH ×2 (16:30→22:00)
--- NOTE | 2017-05-27 16:35 | PN ---
Date/Time of Note Date/Time of Note DATE: 05/27/17 TIME: 16:32 OB Subjective Subjective Subjective Patient is sleeping comfortably Reportedly has diminished pain Currently appears painless OB Objective Objective Objective Vital signs are stable Patient's abdomen felt soft with examiner Cervical exam was refused by the patient Cervical ultrasound shows the cervix to be closed with 3 cm length Toxicology screen is positive for amphetamines and cannabinoids OB Assessment/Plan Other Assessment: Abdominal pain Nausea and vomiting of uncertain origin possibly gastroenteritis Elevated white counts Positive toxicology screen Other plan: We will consult patient in regards to amphetamine and or cannabinoid use during Continue supportive care and advanced diet Change antibiotics to DALE Dykes MD May 27, 2017 16:35
[2017-05-28] MEDS ORDERED: CEFTRIAXONE 1 GM/50 ML (PMX) 50 ML IVPB SCH (00:30)
[2017-05-28] MEDS: DEXTROSE 5%-0.45% NACL 1,000 ML IV SCH ×3 (01:00→17:50)
[2017-05-28] MEDS: PIPER-TAZO 3.375 GM IV (PMX) 100 ML IVPB SCH ×4 (04:04→22:01)
[2017-05-28] MEDS: MEPERIDINE 50 MG INJ IV PRN ×2 (07:57→17:50)
[2017-05-28] MEDS: METOCLOPRAMIDE 10 MG INJ IV PRN ×2 (08:07→15:00)
[2017-05-28] MEDS: FAMOTIDINE 20 MG INJ IV SCH (08:59)
[2017-05-28] MEDS ORDERED: TERBUTALINE 1 ML ONE (10:25)
[2017-05-28] MEDS ORDERED: TERBUTALINE 1 MG/ML INJ SC ONE (10:30)
[2017-05-28 11:52] LABS: BASOPHIL # 0.1 10^3/ul (0.0-0.1); BASOPHILS % 0.5 % (0.0-2.0); EOSINOPHILS % 0.2 % (0.0-7.0); HEMATOCRIT 31.1 % (37.0-47.0); HEMOGLOBIN 10.3 g/dl (12.0-16.0); LYMPHOCYTES # 1.9 10^3/ul (0.8-2.9); LYMPHOCYTES % 15.7 % (15.0-51.0); MEAN CORPUSCULAR HEMOGLOBIN 28.1 pg (29.0-33.0); MEAN CORPUSCULAR HGB CONC 33.1 g/dl (32.0-37.0); MEAN PLATELET VOLUME 10.3 fl (7.4-10.4); MONOCYTE # 0.6 10^3/ul (0.3-0.9); MONOCYTES % 5.1 % (0.0-11.0); NEUTROPHILS % 78.1 % (39.0-77.0); PLATELET COUNT 249 10^3/UL (140-415); RED BLOOD COUNT 3.66 10^6/ul (4.20-5.40); RED CELL DISTRIBUTION WIDTH 13.3 % (11.5-14.5); WHITE BLOOD COUNT 11.9 10^3/ul (4.8-10.8)
[2017-05-28] MEDS ORDERED: HYDROCODONE/APAP (5/325) TAB PO PRN (14:30)
[2017-05-28] MEDS ORDERED: METOCLOPRAMIDE 10 MG INJ ONE (15:03)
[2017-05-28] MEDS ORDERED: MEPERIDINE 50 MG INJ ONE (17:48)
--- NOTE | 2017-05-28 18:53 | PN ---
Date/Time of Note Date/Time of Note DATE: 05/28/17 TIME: 18:51 OB Subjective Subjective Subjective Complaining of less pain Still complaining of nausea vomiting OB Objective Objective Objective Vital signs are stable General physical exam is normal Appears well hydrated Apparently was tolerating clear liquid diet OB Assessment/Plan Other Assessment: Abdominal pain Nausea and vomiting Positive drug screen for amphetamine on cannabinoids Other plan: Continue supportive measures Continue IV antibiotics until white count is normal Change all pain meds to p.o. medication Antiemetics and antacids were changed to p.o. as well DALE OLSEN MD May 28, 2017 18:53
[2017-05-28] MEDS: METOCLOPRAMIDE 10 MG TAB PO SCH (20:00)
[2017-05-28] MEDS: FAMOTIDINE 20 MG TAB PO SCH (20:56)
[2017-05-28] MEDS ORDERED: METOCLOPRAMIDE 10 MG TAB PO SCH (21:00)
[2017-05-29] MEDS: METOCLOPRAMIDE 10 MG TAB PO SCH ×4 (00:02→18:27)
[2017-05-29] MEDS: DEXTROSE 5%-0.45% NACL 1,000 ML IV SCH ×2 (02:22→12:14)
[2017-05-29] MEDS: PIPER-TAZO 3.375 GM IV (PMX) 100 ML IVPB SCH ×3 (04:03→16:18)
[2017-05-29] MEDS: FAMOTIDINE 20 MG TAB PO SCH (09:12)
[2017-05-29 14:48] LABS: BASOPHILS % 0.4 % (0.0-2.0); EOSINOPHILS # 0.1 10^3/ul (0.0-0.5); EOSINOPHILS % 0.5 % (0.0-7.0); HEMATOCRIT 29.4 % (37.0-47.0); HEMOGLOBIN 9.9 g/dl (12.0-16.0); LYMPHOCYTES # 1.5 10^3/ul (0.8-2.9); LYMPHOCYTES % 15.8 % (15.0-51.0); MEAN CORPUSCULAR HEMOGLOBIN 28.7 pg (29.0-33.0); MEAN CORPUSCULAR HGB CONC 33.7 g/dl (32.0-37.0); MEAN CORPUSCULAR VOLUME 85.2 fl (82.0-101.0); MEAN PLATELET VOLUME 9.8 fl (7.4-10.4); MONOCYTE # 0.5 10^3/ul (0.3-0.9); MONOCYTES % 5.4 % (0.0-11.0); NEUTROPHILS % 77.4 % (39.0-77.0); PLATELET COUNT 221 10^3/UL (140-415); RED BLOOD COUNT 3.45 10^6/ul (4.20-5.40); RED CELL DISTRIBUTION WIDTH 13.1 % (11.5-14.5); WHITE BLOOD COUNT 9.7 10^3/ul (4.8-10.8)
--- NOTE | 2017-05-29 16:42 | DS ---
Date/Time of Note Date/Time of Note DATE: 05/29/17 TIME: 16:40 Obstetrical Discharge Record Final Diagnosis Final Diagnosis: not delivered Other Final Diagnosis Possible gastritis during Complications Other (Joint intestinal) Condition on Discharge Physical Assessment Voiding: Yes Bowel Movement: Yes Breast: Soft, non-tender, Filling Fundus: Other () Abdomen and Incision: Gravid Episiotomy: Not applicable Calf Tenderness: No Patient Condition: Good DALE OLSEN MD May 29, 2017 16:42
--- NOTE | 2017-05-29 16:45 | DS ---
Date/Time of Note Date/Time of Note DATE: 05/29/17 TIME: 16:42 Discharge Summary Admission/Discharge Info Admit Date/Time May 27, 2017 at 01:00 Discharge Date/Time May 29, 2017 Discharge Diagnosis Status post gastritis 30+ weeks Resolved abdominal pain Resolved nausea vomiting Patient Condition: Good Hx of Present Illness 21-year-old female admitted complaining of abdominal pain and nausea vomiting, most of his symptoms resolved supportive therapy Patient also had elevated white count which was placed on Zosyn and had resolution of a white count using Zosyn Hospital Course Uncomplicated Home Meds No Active Prescriptions or Reported Meds Follow-up Plan Few days in clinic Primary Care Provider Not On Staff Doctor Time spent on discharge: > 30 minutes Pending Labs Laboratory Tests Test 05/29/17 14:26 White Blood Count 9.710^3/ul (4.8-10.8) Red Blood Count 3.4510^6/ul (4.20-5.40) Hemoglobin 9.9g/dl (12.0-16.0) Hematocrit 29.4% (37.0-47.0) Mean Corpuscular Volume 85.2fl (82.0-101.0) Mean Corpuscular Hemoglobin 28.7pg (29.0-33.0) Mean Corpuscular Hemoglobin Concent 33.7g/dl (32.0-37.0) Red Cell Distribution Width 13.1% (11.5-14.5) Platelet Count 90980^3/UL (140-415) Mean Platelet Volume 9.8fl (7.4-10.4) Neutrophils % 77.4% (39.0-77.0) Lymphocytes % 15.8% (15.0-51.0) Monocytes % 5.4% (0.0-11.0) Eosinophils % 0.5% (0.0-7.0) Basophils % 0.4% (0.0-2.0) Nucleated Red Blood Cells % 0.0/100WBC (0.0-0.0) Neutrophils # (Manual) 7.510^3/ul (1.7-7.5) Lymphocytes # 1.510^3/ul (0.8-2.9) Monocytes # 0.510^3/ul (0.3-0.9) Eosinophils # 0.110^3/ul (0.0-0.5) Basophils # 0.010^3/ul (0.0-0.1) Nucleated Red Blood Cells # 0.010^3/ul (0.0-0.0) DALE OLSEN MD May 29, 2017 16:45
--- NOTE | 2017-05-29 16:47 | PD.PPDC ---
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
[2017-05-29] MEDS ORDERED: METO10TA96 PO (16:48)
[2017-05-29] MEDS ORDERED: UDMYL PO (16:48)
[2017-05-29] MEDS ORDERED: FAMO20TA18 PO (16:48)
== END 2017-05-29 19:00 | disposition home or self-care (01) | DRG 781 ==
LOC: OBT 21:04 → L-D 21:05 → OBG 05-27 01:00 → OBT 05-27 01:00
PROVIDERS: ADMIT Obstetrics & Gynecology; ATTEND Obstetrics & Gynecology
DX: O99.613 Diseases of the digestive system complicating pregnancy, third trimester (principal); F12.90 Cannabis use, unspecified, uncomplicated; K92.89 Other specified diseases of the digestive system; O23.43 Unspecified infection of urinary tract in pregnancy, third trimester; O99.323 Drug use complicating pregnancy, third trimester; F15.90 Other stimulant use, unspecified, uncomplicated; Z3A.31 31 weeks gestation of pregnancy
CPT/HCPCS: 36415; 76705; 76817; 80053; 80307; 81001; 82150; 83690; 84560; 85025; 87086; 96361; 96365; 96366; G0463; J0131; J0696; J2175; J2405; J2543; J2765; J3105; J7030; J7042; J7120; J7121

== ENCOUNTER 2017-06-04 11:10 | Inpatient (IN) | payer OTHER ==
[~2017-06-04 11:10] MED LIST changes: -CEPH-443 PO; +FAMO20TA18 PO; +METO10TA96 PO; -ONDA4TAB11 PO; -PRENAT PO; -PROM25TA14 PO; -PROM25TA14 PR; -TYL500 PO; +UDMYL PO
[2017-06-04] MEDS ORDERED: LACTATED RINGER'S 1,000 ML IV* SCH ×2 (12:00→12:41)
[2017-06-04 12:28] LABS: BASOPHILS % 0.2 % (0.0-2.0); EOSINOPHILS % 0.1 % (0.0-7.0); HEMATOCRIT 32.2 % (37.0-47.0); HEMOGLOBIN 10.8 g/dl (12.0-16.0); LYMPHOCYTES # 1.3 10^3/ul (0.8-2.9); LYMPHOCYTES % 10.6 % (15.0-51.0); MEAN CORPUSCULAR HEMOGLOBIN 27.7 pg (29.0-33.0); MEAN CORPUSCULAR HGB CONC 33.5 g/dl (32.0-37.0); MEAN CORPUSCULAR VOLUME 82.6 fl (82.0-101.0); MEAN PLATELET VOLUME 10.5 fl (7.4-10.4); MONOCYTE # 0.3 10^3/ul (0.3-0.9); MONOCYTES % 2.7 % (0.0-11.0); PLATELET COUNT 251 10^3/UL (140-415); RED CELL DISTRIBUTION WIDTH 13.6 % (11.5-14.5); WHITE BLOOD COUNT 12.1 10^3/ul (4.8-10.8)
[2017-06-04 12:35] LABS: ADD UMIC YES; UR AMORPHOUS CRYSTAL FEW /HPF (NONE SEEN); UR ASCORBIC ACID NEGATIVE (NEGATIVE); UR BACTERIA FEW /HPF (NONE SEEN); UR BILIRUBIN (Dip) NEGATIVE (NEGATIVE); UR BLOOD (Dip) NEGATIVE (NEGATIVE); UR CLARITY SLIGHTLY CLOUDY (CLEAR); UR COLOR YELLOW (YELLOW); UR GLUCOSE (Dip) NEGATIVE (NEGATIVE); UR KETONES (Dip) 2+ mg/dL (NEGATIVE); UR LEUKOCYTE ESTERASE (Dip) 3+ Leu/ul (NEGATIVE); UR MUCUS FEW /HPF (NONE SEEN); UR NITRITE (Dip) NEGATIVE (NEGATIVE); UR NONSQUAMOUS EPITHELIAL CELL 1 /HPF (NONE SEEN); UR RBC 30 /HPF (0-5); UR SPECIFIC GRAVITY (Dip) 1.014 (1.003-1.030); UR SQUAMOUS EPITHELIAL CELL MODERATE /HPF (FEW); UR TOTAL PROTEIN (Dip) 1+ mg/dl (NEGATIVE); UR UROBILINOGEN (Dip) NEGATIVE (NEGATIVE)
[2017-06-04 12:49] LABS: ALBUMIN 3.9 g/dl (3.3-4.9); ALBUMIN/GLOBULIN RATIO 1.05; BILIRUBIN,INDIRECT 0.3 mg/dl (0-1.1); BILIRUBIN,TOTAL 0.3 mg/dl (0.2-1.3); CALCIUM 9.1 mg/dl (8.4-10.2); CREATININE 0.48 mg/dl (0.44-1.00); POTASSIUM 3.2 mmol/L (3.5-5.1); TOTAL PROTEIN 7.6 g/dl (6.1-8.1)
[2017-06-04 13:22] LABS: AMYLASE 70 U/L (11-123)
--- NOTE | 2017-06-04 13:31 | HP ---
Date/Time of Note Date/Time of Note DATE: 06/04/17 TIME: 13:30 OB - History Hx of Present Free Text/Dictation 21 yo with Abdominal pain and nNause and Vomiting Care: Good Care Ultrasounds: No ultrasounds, Normal mid trimester US Obstetrical Complications: None Medical Complications: None Past Family/Social History * Past Medical, Surgical, Family and Obstetric Histories reviewed from chart. OB Admission Exam Physical Exam Abdomen: WNL Extremities: Normal Membranes: Intact Heart Rate: 140's Accelerations: Accelerations Present Decelerations: No Decelerations Varibility: Moderate Contractions on Admission: None Last 72 hours Lab Results CBC & BMP 06/04/17 12:00 Liver Function Test 06/04/17 12:00 Alanine Aminotransferase (ALT/SGPT) 24 Albumin 3.9 Alkaline Phosphatase 132 H Aspartate Amino Transf (AST/SGOT) 25 Direct Bilirubin 0.00 Total Protein 7.6 OB Assessment/Plan Reason for admission: observation Plan: Expectant Management Other plan: PIH labs Abdominal Sono IV hydration Close Observation CINDI JONES M.D. Jun 04, 2017 13:31
[2017-06-04] MEDS: FAMOTIDINE 20 MG INJ IV SCH ×2 (14:00→21:10)
[2017-06-04] MEDS: DEXTROSE 5%-LR 1,000 ML IV SCH (14:28)
[2017-06-04] MEDS: ONDANSETRON 4 MG INJ IV PRN ×2 (15:08→20:48)
[2017-06-04 15:35] LABS: INR 0.9; PROTIME 12.1 Sec (12.2-14.2); PT RATIO 0.9
[2017-06-04 16:19] LABS: BARBITURATES Negative (NEGATIVE); BENZODIAZEPINES Negative (NEGATIVE); COCAINE Negative (NEGATIVE); OPIATES Negative (NEGATIVE)
[2017-06-04 16:21] LABS: CANNABINOIDS Positive (NEGATIVE)
--- NOTE | 2017-06-04 19:25 | RADRPT ---
PROCEDURE: US biophysical profile. CLINICAL INDICATION: PAIN TECHNIQUE: Multiple sonographic images of the uterus were obtained. The images were revi ewed on a PACS workstation. COMPARISON: 05/27/2017 FINDINGS: There is a single live intrauterine gestation. heart rate is 154 beats per minute. The position is cephalic. The placenta is anterior, grade 1 with no abruption or previa. Cervical length: 3 cm The TRACIE is 10.3 cm. (Normal = 5-20 cm.) Breathing Movement: 2 Gross Body Movement: 2 Tone: 2 Qualitative Amniotic Fluid Volume: 2 TOTAL: 8 IMPRESSION: 1. The biophysical score is 8/8. RPTAT: HRC Physician Gt Date Time Electronically viewed and signed by Physician Gt on 06/04/2017 19:24 RC/
--- NOTE | 2017-06-04 19:39 | RADRPT ---
PROCEDURE: US Abdomen. CLINICAL INDICATION: vomitting. pain TECHNIQUE: Multiple real-time images were acquired of the patient's abdomen and retroperitoneum ut ilizing a high resolution transducer. COMPARISON: None FINDINGS: The liver demonstrates normal echogenicity. The liver is normal in size and no focal solid lesions are seen. The portal vein is patent with normal direction of flow. No intrahepatic biliary dilatat ion is seen. The liver measures 14 cm in length. No gallstones are identified within the gallbladder. There is no pericholecystic fluid or gallbladd er wall thickening. The common bile duct measures 2.7 mm in maximal dimension. The visualized portions of the pancreas are unremarkable. The spleen is normal in size. The spleen measures 10.2 cm in length. No free fluid is identified. The kidneys are normal in size, and demonstrate normal echogenicity and cortical thickness. The rig ht kidney measures 10.4 cm. The left kidney measures 11.3 cm. There is mild to moderate right hydr onephrosis. There are no kidney stones. The proximal aorta measures 1.8 cm in transverse dimension. IMPRESSION: 1. Mild to moderate right hydronephrosis, stable from prior exams. Findings are likely secondary to maternal hydronephrosis from . 2. Otherwise, unremarkable exam. RPTAT: HRC Physician Gt Date Time Electronically viewed and signed by Physician Gt on 06/04/2017 19:38 DAMASO/
[2017-06-05] MEDS: DEXTROSE 5%-LR 1,000 ML IV SCH ×4 (01:51→22:07)
[2017-06-05] MEDS: AL HYDROX/MG HYDROX/SIMETH 30 ML CUP PO PRN ×2 (01:59→17:59)
[2017-06-05] MEDS: FAMOTIDINE 20 MG INJ IV SCH (09:06)
[2017-06-05] MEDS ORDERED: ACETAMINOPHEN 325 MG TAB PO PRN (10:00)
[2017-06-05] MEDS: METOCLOPRAMIDE 10 MG TAB PO SCH ×3 (11:32→23:55)
--- NOTE | 2017-06-05 14:19 | PN ---
Date/Time of Note Date/Time of Note DATE: 06/05/17 TIME: 14:16 OB Subjective Subjective Subjective Patient feels hungry Requests pain medication OB Objective Objective Objective Vital signs are stable General physical exam is unchanged Patient does not have any contractions on electronic monitoring Appears to have elevated white count with left shift Toxicology screen are positive for cannabinoids OB Assessment/Plan Other Assessment: 32 weeks gestation Persistent illicit substance use during Persistent nausea and vomiting probably because of the above Other plan: Start on Ancef probably for treatment of urinary tract infection Continue to advance diet Provide [id number] pain meds DALE OLSEN MD Jun 05, 2017 14:19
[2017-06-05] MEDS: CEFAZOLIN 2 GM/50 ML (PMX) 50 ML IVPB SCH ×3 (16:15→23:55)
[2017-06-05] MEDS: ONDANSETRON 4 MG INJ IV PRN ×2 (19:37→23:55)
[2017-06-05] MEDS: FAMOTIDINE 20 MG TAB PO SCH (21:05)
[2017-06-06] MEDS ORDERED: FAMOTIDINE 20 MG INJ IV ONE (03:29)
[2017-06-06] MEDS: METOCLOPRAMIDE 10 MG TAB PO SCH (06:00)
[2017-06-06 07:35] LABS: BASOPHILS % 0.3 % (0.0-2.0); EOSINOPHILS % 0.2 % (0.0-7.0); HEMATOCRIT 28.5 % (37.0-47.0); HEMOGLOBIN 9.6 g/dl (12.0-16.0); LYMPHOCYTES # 1.7 10^3/ul (0.8-2.9); MEAN CORPUSCULAR HEMOGLOBIN 28.3 pg (29.0-33.0); MEAN CORPUSCULAR HGB CONC 33.7 g/dl (32.0-37.0); MEAN CORPUSCULAR VOLUME 84.1 fl (82.0-101.0); MEAN PLATELET VOLUME 10.7 fl (7.4-10.4); MONOCYTE # 0.6 10^3/ul (0.3-0.9); MONOCYTES % 6.3 % (0.0-11.0); NEUTROPHILS % 74.8 % (39.0-77.0); PLATELET COUNT 229 10^3/UL (140-415); RED BLOOD COUNT 3.39 10^6/ul (4.20-5.40); RED CELL DISTRIBUTION WIDTH 13.5 % (11.5-14.5); WHITE BLOOD COUNT 9.6 10^3/ul (4.8-10.8)
[2017-06-06] MEDS: DEXTROSE 5%-LR 1,000 ML IV SCH ×2 (08:17→21:03)
[2017-06-06] MEDS: CEFAZOLIN 2 GM/50 ML (PMX) 50 ML IVPB SCH ×2 (08:18→16:21)
[2017-06-06] MEDS: FAMOTIDINE 20 MG TAB PO SCH ×2 (09:32→10:23)
[2017-06-06] MEDS: ONDANSETRON 4 MG INJ IV PRN ×2 (09:32→15:13)
[2017-06-06] MEDS ORDERED: FAMOTIDINE 20 MG INJ IV SCH (10:30)
[2017-06-06] MEDS: FAMOTIDINE 20 MG INJ IV SCH ×2 (11:20→21:00)
[2017-06-06] MEDS ORDERED: METOCLOPRAMIDE 10 MG INJ IV SCH (12:00)
[2017-06-06] MEDS: METOCLOPRAMIDE 10 MG INJ IV SCH ×2 (12:04→18:00)
[2017-06-06] MEDS: AL HYDROX/MG HYDROX/SIMETH 30 ML CUP PO PRN (17:11)
--- NOTE | 2017-06-06 18:32 | PN ---
Date/Time of Note Date/Time of Note DATE: 06/06/17 TIME: 18:30 OB Subjective Subjective Subjective Patient with re-onset of nausea vomiting after being started on soft diet OB Objective Objective Objective Patient does not appear to be in acute distress She appears well-hydrated Physical exam is normal heart tones are reactive no contractions seen OB Assessment/Plan Other Assessment: Intrauterine at 32-33 weeks Persistent nausea vomiting Other plan: Patient was started on clear liquid with IV medication for relief of her symptoms We will consider hospitalist consult DALE OLSEN MD Jun 06, 2017 18:32
[2017-06-07] MEDS: METOCLOPRAMIDE 10 MG INJ IV SCH ×2 (06:00)
[2017-06-07 06:21] LABS: BASOPHILS % 0.3 % (0.0-2.0); EOSINOPHILS % 0.8 % (0.0-7.0); HEMATOCRIT 27.7 % (37.0-47.0); HEMOGLOBIN 9.2 g/dl (12.0-16.0); LYMPHOCYTES # 2.4 10^3/ul (0.8-2.9); LYMPHOCYTES % 26.5 % (15.0-51.0); MEAN CORPUSCULAR HEMOGLOBIN 28.2 pg (29.0-33.0); MEAN CORPUSCULAR HGB CONC 33.2 g/dl (32.0-37.0); MEAN PLATELET VOLUME 10.7 fl (7.4-10.4); MONOCYTE # 0.6 10^3/ul (0.3-0.9); MONOCYTES % 6.8 % (0.0-11.0); PLATELET COUNT 230 10^3/UL (140-415); RED BLOOD COUNT 3.26 10^6/ul (4.20-5.40); RED CELL DISTRIBUTION WIDTH 13.6 % (11.5-14.5); WHITE BLOOD COUNT 9.1 10^3/ul (4.8-10.8)
[2017-06-07 06:22] LABS: EOSINOPHILS # 0.1 10^3/ul (0.0-0.5)
[2017-06-07] MEDS: DEXTROSE 5%-LR 1,000 ML IV SCH (06:54)
[2017-06-07 06:57] LABS: ALANINE AMINOTRANSFERASE 33 IU/L (13-69); ALBUMIN 2.9 g/dl (3.3-4.9); ALBUMIN/GLOBULIN RATIO 1.03; ALKALINE PHOSPHATASE 92 IU/L (42-121); AMYLASE 49 U/L (11-123); ANION GAP 8 (8-16); ASPARTATE AMINO TRANSFERASE 29 IU/L (15-46); BILIRUBIN,INDIRECT 0.1 mg/dl (0-1.1); BILIRUBIN,TOTAL 0.1 mg/dl (0.2-1.3); CALCIUM 8.4 mg/dl (8.4-10.2); CARBON DIOXIDE 25 mmol/L (21-31); CHLORIDE 107 mmol/L (97-110); CREATININE 0.51 mg/dl (0.44-1.00); GLUCOSE 82 mg/dl (70-220); SODIUM 137 mmol/L (135-144); TOTAL PROTEIN 5.7 g/dl (6.1-8.1)
[2017-06-07 07:01] LABS: BLOOD UREA NITROGEN < 2 mg/dl (7-20); POTASSIUM 2.8 mmol/L (3.5-5.1)
[2017-06-07] MEDS: FAMOTIDINE 20 MG INJ IV SCH (09:00)
--- NOTE | 2017-06-07 14:05 | DS ---
Date/Time of Note Date/Time of Note Home on current medications Clinic on 06/09/2017 DATE: 06/07/17 TIME: 14:03 Obstetrical Discharge Record Final Diagnosis Final Diagnosis: not delivered Other Final Diagnosis Nausea vomiting and abdominal pain Complications Other (Abdominal pain and nausea vomiting, substance of) Condition on Discharge Physical Assessment Last Vitals: Nurse's notes Voiding: Yes Bowel Movement: Yes Breast: Soft, non-tender, Filling Fundus: Other Abdomen and Incision: Soft bowel sounds present Abdomen is gravid fundal height is 34 cm Episiotomy: Not applicable Calf Tenderness: No Patient Condition: Good DALE OLSEN MD Jun 07, 2017 14:05
--- NOTE | 2017-06-07 14:07 | PD.PPDC ---
FINANCIAL COMPLIANCE EXAMINER Discharge Instruction Provider Information Physician Information This was 1 of multiple admissions for this 21-year-old female for the same complaint of nausea vomiting resolved with symptomatic treatment Diagnosis Final Diagnosis: Vomiting and minimal pain Condition Patient Condition: Good Diet Diet: Resume Regular Diet Activity/Restrictions Activity: Normal Activity May Shower Follow-up Follow-up with Physician: 2, Day/Days (Clinic) Return to clinic for Comment: Refer to clinic on Friday for follow-up DALE OLSEN MD Jun 07, 2017 14:07
[2017-06-07] MEDS ORDERED: ACET325T40 PO (14:08)
== END 2017-06-07 14:18 | disposition home or self-care (01) | DRG 780 ==
LOC: OBT 11:10 → L-D 11:10 → OBT 12:50 → OBG 12:50
PROVIDERS: ADMIT Obstetrics & Gynecology; ATTEND Obstetrics & Gynecology
DX: O47.03 False labor before 37 completed weeks of gestation, third trimester (principal); Z3A.32 32 weeks gestation of pregnancy
CPT/HCPCS: 76700; 76817; 76818; 80053; 80307; 81001; 82150; 83690; 84560; 85025; 85384; 85610; 85730; G0463; J0690; J2405; J2765; J7120; J7121

== ENCOUNTER 2017-07-25 10:00 | Inpatient (IN) | payer OTHER ==
[~2017-07-25] VITALS: Ht 167.6 cm; Wt 84.5 kg
[~2017-07-25 10:00] MED LIST changes: +ACET325T40 PO
[2017-07-25 10:52] VITALS: Ht 167.6 cm; Wt 84.5 kg
[2017-07-25 10:54] VITALS: BP 132/84; PULSE 88; RESP 20
[2017-07-25] MEDS ORDERED: PREN-46 PO (11:02)
[2017-07-25] MEDS ORDERED: AMPICILLIN 2 GM/NS (PMX) 100 ML ONE (11:15)
[2017-07-25] MEDS ORDERED: LACTATED RINGER'S 1,000 ML IV PRN (11:20)
[2017-07-25] MEDS: LACTATED RINGER'S 1,000 ML IV SCH ×2 (11:25→12:13)
[2017-07-25] MEDS ORDERED: BUTORPHANOL 2 MG INJ IV PRN (11:30)
[2017-07-25] MEDS ORDERED: IBUPROFEN 600 MG TAB PO PRN (11:30)
[2017-07-25] MEDS ORDERED: OXYTOCIN 30 UNITS/LR 500 ML IV PRN ×2 (11:30→22:30)
[2017-07-25] MEDS ORDERED: METHYLERGONOVINE 0.2 MG INJ IM PRN ×2 (11:30→22:30)
[2017-07-25] MEDS ORDERED: HYDROCODONE/APAP (5/325) TAB PO PRN ×2 (11:30→22:30)
[2017-07-25] MEDS ORDERED: LIDOCAINE 1% (MPF) 30 ML INJ INJ PRN (11:30)
[2017-07-25] MEDS ORDERED: OXYTOCIN 30 UNITS/LR 500 ML IV SCH ×3 (11:30→12:30)
[2017-07-25] MEDS ORDERED: AMPICILLIN 2 GM/NS (PMX) 100 ML IV ONE (11:30)
[2017-07-25] MEDS ORDERED: CARBOPROST 250 MCG INJ IM PRN ×2 (11:30→22:30)
[2017-07-25] MEDS ORDERED: MISOPROSTOL 200 MCG TAB PR PRN ×2 (11:30→22:30)
[2017-07-25 11:35] LABS: INR 0.84; PARTIAL THROMBOPLASTIN TIME 28.7 Sec (25.0-35.0); PROTIME 11.5 Sec (12.2-14.2); PT RATIO 0.9
[2017-07-25 11:38] LABS: BASOPHIL # 0.1 10^3/ul (0.0-0.1); BASOPHILS % 0.4 % (0.0-2.0); EOSINOPHILS # 0.1 10^3/ul (0.0-0.5); EOSINOPHILS % 0.6 % (0.0-7.0); HEMATOCRIT 33.7 % (37.0-47.0); HEMOGLOBIN 11.1 g/dl (12.0-16.0); LYMPHOCYTES # 1.9 10^3/ul (0.8-2.9); LYMPHOCYTES % 15.7 % (15.0-51.0); MEAN CORPUSCULAR HEMOGLOBIN 26.6 pg (29.0-33.0); MEAN CORPUSCULAR HGB CONC 32.9 g/dl (32.0-37.0); MEAN CORPUSCULAR VOLUME 80.8 fl (82.0-101.0); MONOCYTE # 0.5 10^3/ul (0.3-0.9); MONOCYTES % 3.8 % (0.0-11.0); NEUTROPHIL # 9.4 10^3/ul (1.6-7.5); NEUTROPHILS % 79.1 % (39.0-77.0); PLATELET COUNT 296 10^3/UL (140-415); RED BLOOD COUNT 4.17 10^6/ul (4.20-5.40); RED CELL DISTRIBUTION WIDTH 15.1 % (11.5-14.5); WHITE BLOOD COUNT 11.9 10^3/ul (4.8-10.8)
[2017-07-25] MEDS ORDERED: FENTAnyl 2MCG/ML-ROPIV 0.2% 100 ML ONE (11:55)
[2017-07-25 13:45] LABS: BARBITURATES Negative (NEGATIVE); BENZODIAZEPINES Negative (NEGATIVE); CANNABINOIDS Positive (NEGATIVE); COCAINE Negative (NEGATIVE); OPIATES Negative (NEGATIVE)
[2017-07-25] MEDS ORDERED: NALOXONE (0.4 MG/ML) INJ IV PRN (14:30)
[2017-07-25] MEDS ORDERED: FENTAnyl 2MCG/ML-ROPIV 0.2% 100 ML BAG EPI SCH (14:30)
[2017-07-25] MEDS: AMPICILLIN 1 GM/NS (PMX) 50 ML IV SCH ×2 (14:54→19:20)
[2017-07-25] MEDS ORDERED: CEFTRIAXONE 1 GM/50 ML (PMX) 50 ML IVPB ONE (15:00)
[2017-07-25] MEDS ORDERED: MINERAL OIL LIGHT 10 ML VIAL TOP PRN (15:00)
[2017-07-25] MEDS ORDERED: ONDANSETRON 4 MG INJ IV PRN (17:45)
--- NOTE | 2017-07-25 19:52 | HP ---
Date/Time of Note Date/Time of Note DATE: 07/25/17 TIME: 19:49 OB - History Hx of Present Free Text/Dictation Admitted at 40 weeks complaining of onset of labor contractions started 8 AM Chief Complaint: Labor pains Last Menstrual Period: Oct 18, 2016 Estimated Due Date: Jul 25, 2017 : 1 Para: 0 Care: Good Care Ultrasounds: Normal mid trimester US Obstetrical Complications: Other (Positive GC and positive drug screen on routine testing) Medical Complications: None Past Family/Social History * Past Medical, Surgical, Family and Obstetric Histories reviewed from chart. Blood Type: O+ Rubella: immune RPR/VDRL: Negative GBS Status: Positive HBsAG: Negative OB Admission Exam Vital Signs Vital Signs Vital Signs Date Time Temp Pulse Resp B/P Pulse Ox O2 Delivery O2 Flow Rate FiO2 07/25/17 10:54 97.8 88 20 132/84 Room Air Physical Exam HEENT: WNL Heart: Rhythm Normal Lungs: Clear, Equal Abdomen: WNL Extremities: Normal Reflexes: Normal Cervical Dilatation: 2cm Effacement: 100% Station: 0 Membranes: Intact Heart Rate: 140's Accelerations: Accelerations Present Decelerations: No Decelerations Varibility: Marked Contractions on Admission: < 5 Minutes Apart Date/Time Contractions Began: July 25, 2017 at 800 a.m. Frequency of Contractions: Every 2 3 minutes Duration: Over 60 seconds Intensity: Firm Last 72 hours Lab Results CBC & BMP 07/25/17 10:55 OB Assessment/Plan Other Assessment: Term gestation Number pains Other plan: Proceed with labor and augmented if necessary DALE OLSEN MD Jul 25, 2017 19:52
--- NOTE | 2017-07-25 19:54 | LDN ---
Date/Time of Note Date/Time of Note DATE: 07/25/17 TIME: 19:52 Delivery Summary Normal spontaneous vaginal delivery of a viable over intact perineum Weeks of Gestation 40 Placenta Delivered: Spontaneously, Intact & Complete Meconium: none Episiotomy: No Perineal laceration: 0 Laceration repair: Hymenal laceration of midline was reapproximated using 2-0 Vicryl stitches Anesthesia type: Epidural Estimated blood loss: 300 Sponge & Needle done & correct: Yes All needle counts correct: Yes Any foreign bodies felt in the: No Problems: Delivery Information Sex Infant Sex: female Apgars 1 Minute: 9 5 Minute: 9 Suctioning Nose & mouth suctioned at erin: Yes Delee suction performed: No Umbilical Cord Umbilical cord with: 3 Vessels Cord presentations: no nuchal cord Cord Blood was obtained: Yes Mother & Baby Disposition Disposition Mom & Baby to Maternity; Good: Yes (Mother and baby were recovered in good condition) Mom transferred to: Other (Maternity) Baby to NICU: No DALE OLSEN MD Jul 25, 2017 19:54
[2017-07-25 22:02] VITALS: BP 117/80; PULSE 74; RESP 19
[2017-07-25] MEDS ORDERED: LACTATED RINGER'S 1,000 ML IV* SCH (22:10)
[2017-07-25] MEDS ORDERED: BENZOCAINE 20% 56 ML SPRAY TOP PRN (22:30)
[2017-07-25] MEDS ORDERED: WITCH HAZEL/GLYCERIN PAD PR PRN (22:30)
[2017-07-25] MEDS ORDERED: DIBUCAINE 1% 30 GM OINT PR PRN (22:30)
[2017-07-25] MEDS ORDERED: ZOLPIDEM 5 MG TAB PO PRN (22:30)
[2017-07-25] MEDS ORDERED: LANOLIN 7 GM TUBE TOP PRN (22:30)
[2017-07-25] MEDS: SENNA/DOCUSATE NA (8.6MG/50MG) TAB PO SCH (23:16)
[2017-07-25] MEDS: IBUPROFEN 600 MG TAB PO SCH (23:17)
[2017-07-25] MEDS: CEPHALEXIN 500 MG CAP PO SCH (23:17)
[2017-07-25] MEDS: MAGNESIUM HYDROXIDE 30ML CUP PO SCH (23:17)
[2017-07-26] MEDS: HYDROCODONE/APAP (5/325) TAB PO PRN ×2 (02:25→10:14)
[2017-07-26 04:15] VITALS: BP 102/55; PULSE 63; RESP 18
[2017-07-26] MEDS: CEPHALEXIN 500 MG CAP PO SCH ×3 (05:48→17:43)
[2017-07-26] MEDS: IBUPROFEN 600 MG TAB PO SCH ×3 (05:48→17:43)
[2017-07-26 07:40] VITALS: BP 109/66; PULSE 51; RESP 16
[2017-07-26 08:41] LABS: BASOPHIL # 0.1 10^3/ul (0.0-0.1); BASOPHILS % 0.3 % (0.0-2.0); EOSINOPHILS # 0.1 10^3/ul (0.0-0.5); EOSINOPHILS % 0.3 % (0.0-7.0); HEMATOCRIT 32.4 % (37.0-47.0); HEMOGLOBIN 10.5 g/dl (12.0-16.0); LYMPHOCYTES # 2.4 10^3/ul (0.8-2.9); LYMPHOCYTES % 11.6 % (15.0-51.0); MEAN CORPUSCULAR HEMOGLOBIN 26.6 pg (29.0-33.0); MEAN CORPUSCULAR HGB CONC 32.4 g/dl (32.0-37.0); MEAN PLATELET VOLUME 10.7 fl (7.4-10.4); MONOCYTES % 4.6 % (0.0-11.0); NEUTROPHIL # 17.3 10^3/ul (1.6-7.5); NEUTROPHILS % 82.6 % (39.0-77.0); PLATELET COUNT 249 10^3/UL (140-415); RED BLOOD COUNT 3.95 10^6/ul (4.20-5.40); RED CELL DISTRIBUTION WIDTH 15.3 % (11.5-14.5)
[2017-07-26] MEDS: MAGNESIUM HYDROXIDE 30ML CUP PO SCH ×2 (08:43→21:10)
[2017-07-26] MEDS: SENNA/DOCUSATE NA (8.6MG/50MG) TAB PO SCH ×2 (08:43→21:10)
[2017-07-26 16:00] VITALS: BP 121/70; PULSE 61; RESP 16
--- NOTE | 2017-07-26 16:38 | DS ---
Date/Time of Note Date/Time of Note We will DC patient home next day following the CBC DATE: 07/26/17 TIME: 16:37 Obstetrical Discharge Record Final Diagnosis Final Diagnosis: Term delivered Other Final Diagnosis This vaginal delivery Vaginal Delivery Obstetrical Delivery: Spontaneous, Laceration, Repaired Complications Augmentation: Yes Condition on Discharge Physical Assessment Last Vitals: See nurse's notes Voiding: Yes Bowel Movement: Yes Breast: Soft, non-tender, Filling Fundus: Firm Abdomen and Incision: Abdomen is soft bowel sounds present Episiotomy: Not applicable Is clean Calf Tenderness: No Patient Condition: Good DALE OLSEN MD Jul 26, 2017 16:38
--- NOTE | 2017-07-26 16:41 | PD.PPDC ---
SPOOL CARRIER Discharge Instruction Provider Information Physician Information 21-year-old female had vaginal delivery Diagnosis Final Diagnosis: Status post vaginal delivery Condition Patient Condition: Good Diet Diet: Resume Regular Diet Activity/Restrictions Activity: Normal Activity May Shower Restrictions: Nothing in the Vagina Return to Work or School: Sep 15, 2017 Follow-up Follow-up with Physician: 4, Week/Weeks (In clinic) Return to clinic for OB Instructions: Breast Tenderness Depression Comment: Pelvic rest 6 weeks DALE OLSEN MD Jul 26, 2017 16:41
[2017-07-26] MEDS ORDERED: CIPR500T4 PO (16:43)
[2017-07-26] MEDS ORDERED: IBUP-1542 PO (16:43)
[2017-07-26] MEDS: CIPROFLOXACIN 500 MG TAB PO SCH (17:43)
[2017-07-26 20:00] VITALS: BP 136/86; PULSE 50; RESP 18
[2017-07-27] MEDS: CEPHALEXIN 500 MG CAP PO SCH ×4 (00:27→17:19)
[2017-07-27] MEDS: IBUPROFEN 600 MG TAB PO SCH ×4 (00:27→17:20)
[2017-07-27 04:00] VITALS: BP 108/60; PULSE 55; RESP 20
[2017-07-27] MEDS: CIPROFLOXACIN 500 MG TAB PO SCH ×2 (06:02→17:20)
[2017-07-27 07:02] LABS: BASOPHILS % 0.2 % (0.0-2.0); EOSINOPHILS # 0.2 10^3/ul (0.0-0.5); HEMOGLOBIN 9.9 g/dl (12.0-16.0); LYMPHOCYTES # 1.9 10^3/ul (0.8-2.9); LYMPHOCYTES % 12.6 % (15.0-51.0); MEAN CORPUSCULAR HEMOGLOBIN 26.1 pg (29.0-33.0); MEAN CORPUSCULAR HGB CONC 31.9 g/dl (32.0-37.0); MEAN CORPUSCULAR VOLUME 81.8 fl (82.0-101.0); MEAN PLATELET VOLUME 10.1 fl (7.4-10.4); MONOCYTE # 0.6 10^3/ul (0.3-0.9); MONOCYTES % 4.3 % (0.0-11.0); NEUTROPHILS % 81.4 % (39.0-77.0); PLATELET COUNT 241 10^3/UL (140-415); RED BLOOD COUNT 3.79 10^6/ul (4.20-5.40); RED CELL DISTRIBUTION WIDTH 15.5 % (11.5-14.5); WHITE BLOOD COUNT 14.7 10^3/ul (4.8-10.8)
[2017-07-27 07:40] VITALS: BP 113/81; PULSE 58; RESP 16
[2017-07-27] MEDS: MAGNESIUM HYDROXIDE 30ML CUP PO SCH (08:25)
[2017-07-27] MEDS: SENNA/DOCUSATE NA (8.6MG/50MG) TAB PO SCH (08:25)
[2017-07-27] MEDS ORDERED: MEASLES,MUMPS,RUBELLA VACCINE INJ SC* ONE (09:00)
[2017-07-27] MEDS ORDERED: VARICELLA VACCINE LIVE/PF 1,350 UNIT/0.5 ML ML SC* ONE (09:00)
[2017-07-27] MEDS ORDERED: DIPHTH/TET/ACEL PERTUSS (ADULT) 0.5 ML VIAL IM* ONE (09:00)
[2017-07-27 16:04] VITALS: BP 126/81; PULSE 52; RESP 16
== END 2017-07-27 20:41 | disposition home or self-care (01) | DRG 775 ==
LOC: L-D 10:44 → PP1 21:32
PROVIDERS: ADMIT Obstetrics & Gynecology; ATTEND Obstetrics & Gynecology
PROC: 0UQKXZZ Repair Hymen, External Approach (ICD-10-PCS; 2017-07-25)
PROC: 3E0P3VZ Introduction of Hormone into Female Reproductive, Percutaneous Approach (ICD-10-PCS; 2017-07-25)
PROC: 10E0XZZ Delivery of Products of Conception, External Approach (ICD-10-PCS; principal; 2017-07-25 10:00)
DX: O48.0 Post-term pregnancy (principal); O70.0 First degree perineal laceration during delivery; Z3A.40 40 weeks gestation of pregnancy; Z37.0 Single live birth
CPT/HCPCS: 62319; 80307; 85025; 85610; 85730; 86592; 86900; 86901; 87340; 90715; 90716; J0290; J0696; J2405; J2590; J3010; J7120

== ENCOUNTER → 2017-11-06 | Emergency (ER) | END | disposition left against medical advice (07) ==

== ENCOUNTER 2018-05-24 12:21 | Emergency (ER) | END 2018-05-24 16:15 | disposition home or self-care (01) ==

== ENCOUNTER 2018-06-25 17:43 | Emergency (ER) | END 2018-06-25 21:51 | disposition home or self-care (01) ==